=== PATIENT | female | born 1955 | race Caucasian/White ===

== ENCOUNTER → 2020-06-13 13:35 | Outpatient (BNVA) | payer MEDICARE, MEDICAID, SELFPAY | PROVIDERS: PCP Internal Medicine; Visit Provider Physician Assistant | DX: Z13.89 Encounter for screening for other disorder (principal) | CPT/HCPCS: Q3014 ==

== ENCOUNTER → 2020-07-14 07:47 | Outpatient (REF) | payer MEDICARE, MEDICAID, SELFPAY ==
--- NOTE | ~2020-07-14 | NM_ITS ---
EXAMINATION: RADIONUCLIDE SOLID FOOD GASTRIC EMPTYING 4-HOUR STUDY CLINICAL INFORMATION: Gastroparesis. COMPARISON: No previous gastric emptying study is available for comparison. TECHNIQUE: A standard meal consisting of 4 oz of Egg Beaters brand tagged with 880 microcuries Tc-99m Sulfur Colloid, 8 oz water and 2 slices of toast with jelly was administered orally to the patient. Images were obtained using a dual head gamma camera in the anterior and posterior projections over of the stomach immediately post ingestion and at hourly intervals up to 3 hours post ingestion. Images were not obtained at 4 hours due to the minimal retention at 3 hours. The anterior and posterior counts at each time interval were averaged using the geometric mean and expressed as percentage of the immediate post ingestion counts. FINDINGS: There is good visualization of activity in the stomach immediately post ingestion. As the study progresses, there is good clearance of activity from the stomach and visualization of progressively increasing small bowel activity. By the end of the study, there is almost no retention noted in the stomach. Retention in the stomach at each time interval was: 1 hour 71% (normal 37%-90%) 2 hours 34% (normal 30%-60%) 3 hours 5% 4 hours (Not Obtained) (normal 0%-10%) NM/NM gastric emptying study IMPRESSION: Normal solid food gastric emptying study.
== END ==
LOC: HO.NUCMED 07:47
PROVIDERS: Visit Provider Internal Medicine
DX: K31.84 Gastroparesis (principal)
CPT/HCPCS: 78264; A9541

== ENCOUNTER 2021-01-24 10:30 | Outpatient (REF) | payer MEDICARE, MEDICAID, SELFPAY ==
--- NOTE | ~2021-01-24 | XR_ITS ---
EXAMINATION: XR CHEST CLINICAL INFORMATION: Dyspnea COMPARISON: CXR from 06/19/2013 TECHNIQUE: 2 views of the chest were obtained. FINDINGS: Lungs are well expanded and without acute abnormality. No edema, consolidation or pleural effusion. No evidence of interstitial disease. Cardiac silhouette has normal size and contour. The visualized bones, and upper abdomen, are unremarkable. XR/XR chest 2V IMPRESSION: No acute pulmonary disease compared to 06/19/2013.
== END 2021-01-24 10:31 | disposition home or self-care (01) ==
LOC: HO.HMGCX 10:30
PROVIDERS: PCP Internal Medicine; Visit Provider Physician Assistant Medical
DX: R06.00 Dyspnea, unspecified (principal)
CPT/HCPCS: 71046

== ENCOUNTER → 2021-02-22 10:29 | Outpatient (BNVA) | payer MEDICARE, MEDICAID, SELFPAY | PROVIDERS: PCP Internal Medicine; Visit Provider Internal Medicine | DX: J44.9 Chronic obstructive pulmonary disease, unspecified (principal); R06.00 Dyspnea, unspecified; Z87.891 Personal history of nicotine dependence | CPT/HCPCS: 99202 ==

== ENCOUNTER 2021-03-15 09:51 | Outpatient (REF) | payer MEDICARE, MEDICAID, SELFPAY ==
--- NOTE | 2021-03-15 | PFT_ITS ---
FLOWS: FEV1 65% of predicted at 1.12 L. FVC 72% of predicted at 1.63 L. FEV1 to FVC ratio of 0.69. Positive bronchodilator response. LUNG VOLUMES: Total lung capacity 91% predicted at 3.68 L. Residual volume 121% of predicted at 2.17 L. Slow vital capacity 67% of predicted at 1.50 L. Expiratory reserve volume 28% of predicted at 0.13 L. Diffusion capacity is mildly decreased, diffusion capacity corrects to normal after correction for alveolar ventilation. IMPRESSION: Moderate obstructive ventilatory defect with positive bronchodilator response. Increased residual volume suggests air trapping. Decreased expiratory reserve volume suggests extrathoracic restriction likely secondary to abdominal obesity. Ezequiel Ro MD AP/MODL / [id number]
== END 2021-03-15 09:52 | disposition home or self-care (01) ==
LOC: HO.RESP 09:51
PROVIDERS: PCP Internal Medicine; Visit Provider Internal Medicine
DX: R06.00 Dyspnea, unspecified (principal)
CPT/HCPCS: 94060; 94727; 94729

== ENCOUNTER → 2021-03-21 09:58 | Outpatient (BNVA) | payer MEDICARE, MEDICAID, SELFPAY | PROVIDERS: PCP Internal Medicine; Visit Provider Internal Medicine | DX: J44.9 Chronic obstructive pulmonary disease, unspecified (principal); R06.00 Dyspnea, unspecified; Z87.891 Personal history of nicotine dependence | CPT/HCPCS: 99212 ==

== ENCOUNTER → 2021-05-16 09:28 | Outpatient (BNVA) | payer MEDICARE, MEDICAID, SELFPAY | PROVIDERS: PCP Internal Medicine; Visit Provider Internal Medicine | DX: J44.9 Chronic obstructive pulmonary disease, unspecified (principal); Z87.891 Personal history of nicotine dependence | CPT/HCPCS: 99212 ==

== ENCOUNTER 2021-06-04 12:06 | Outpatient (REF) | payer MEDICARE, MEDICAID, SELFPAY ==
--- NOTE | ~2021-06-04 | XR_ITS ---
EXAMINATION: XR SHOULDER, LEFT CLINICAL INFORMATION: Shoulder pain COMPARISON: None TECHNIQUE: Three views of the left shoulder. FINDINGS: Dysmorphic appearance of the lateral aspect of the clavicle, appearing chronic, could be related to old trauma. Moderate acromioclavicular arthritis. No visible acute fracture or dislocation. Mild glenohumeral joint arthritis. No abnormal soft tissue calcification. XR/XR shoulder LT min 2V IMPRESSION: Moderate acromioclavicular arthritis. Mild glenohumeral joint arthritis. No acute fracture or dislocation seen. Dysmorphic appearance of the lateral aspect of the clavicle, could be related to old trauma.
== END 2021-06-04 12:07 | disposition home or self-care (01) ==
LOC: HO.HMGCX 12:06
PROVIDERS: PCP Internal Medicine; Visit Provider Internal Medicine
DX: S43.402A Unspecified sprain of left shoulder joint, initial encounter (principal)
CPT/HCPCS: 73030

== ENCOUNTER 2021-06-25 09:12 | Emergency (ER) | payer MEDICARE, MEDICAID, SELFPAY ==
--- NOTE | ~2021-06-25 | CT_ITS ---
EXAMINATION: CT ABDOMEN AND PELVIS WITH CONTRAST CLINICAL INFORMATION: 66-year-old female with left lower quadrant abdominal pain COMPARISON: CT abdomen pelvis 07/14/2016 TECHNIQUE: Multidetector volumetric images were obtained from the superior aspect of the liver through the pubic symphysis following administration 85 mL of Omnipaque 350 intravenous contrast. Sagittal and coronal reformatted images were obtained on the technologist's workstation. Oral contrast: No This CT examination was performed using dose optimization techniques as appropriate, variously including the following: *Automated exposure control *Adjustment of mA and/or kV according to patient size (this includes techniques or standardized protocols for targeted exams where dose is matched to indication/reason for exam; i.e. extremities or head) *Use of iterative reconstruction technique DLP: 514 mGy-cm FINDINGS: Visualized lung bases demonstrate mild dependent atelectasis. The liver demonstrates normal size, contour and attenuation. Subcentimeter hypodensity within the posterior right hepatic lobe is stable and remains too small to accurately characterize. The gallbladder is normal in appearance. The pancreas, spleen and adrenal glands are unremarkable. Symmetrically enhancing kidneys. No hydronephrosis bilaterally. Small hiatal hernia. The stomach is decompressed. Normal caliber loops of small and large bowel. There is moderate colonic diverticulosis. Localized circumferential mucosal thickening involving the sigmoid colon. There is mild adjacent pericolonic stranding. There is no associated abscess. There is a mild stool burden throughout the entirety of the colon. Normal appendix. Normal caliber abdominal aorta which demonstrates mild atherosclerotic disease. There is no retroperitoneal lymphadenopathy. The bladder is normal in appearance. Unremarkable CT appearance of the uterus. No inguinal lymphadenopathy. Diffuse osteopenia. Scoliotic and degenerative changes of the spine. Right L5 pars defect. CT/CT abdomen pelvis w con IMPRESSION: CT findings most suggestive of active mild diverticulitis of the sigmoid colon. There is no complicating abscess. Fleischner guidelines were followed.
[2021-06-25 10:13] VITALS: BP 133/70; PULSE 104; RESP 18; TEMP 36.3; O2SAT 94; BMI 26.9
[2021-06-25 10:41] LABS: Basophils Absolute Auto 0.1 X10*3/uL (0.0-0.2); Basophils Percent Auto 0.7 % (0-2); Eosinophils Absolute Auto 0.4 X10*3/uL (0.0-0.4); Eosinophils Percent Auto 3.2 % (0-4); Imm Gran Abs Auto 0.06 X10*3/uL (0.00-0.03); Imm Gran Pct Auto 0.5 % (0.0-0.4); Lymphocytes Absolute Auto 3.2 X10*3/uL (1.2-4.9); Lymphocytes Percent Auto 26.6 % (20-40); MANUAL DIFF FLAG NO; Mean Corpuscular HGB Conc 31.4 g/dl (31.0-35.0); Mean Corpuscular Hemoglobin 27.6 pg (27.0-33.0); Mean Corpuscular Volume 87.9 fL (80.0-98.0); Mean Platelet Volume 9.4 fL (9.4-12.3); Monocytes Absolute Auto 0.8 X10*3/uL (0.1-1.2); Monocytes Percent Auto 6.2 % (2-11); Neutrophils Absolute Auto 7.6 x10*3/uL (2.0-8.3); Neutrophils Percent Auto 62.8 % (45-73); Platelet Count 700 X10*3/uL (160-400); Red Blood Count 3.98 X10*6/uL (4.20-5.50); White Blood Count 12.1 X10*3/uL (4.8-10.8)
[2021-06-25 10:42] LABS: Color Urine YELLOW; Glucose Urine UA NEG (NEG); Leukocyte Esterase Urine 2+ (NEG); Nitrite Urine NEG (NEG); Specific Gravity - Urine <= 1.005 (1.005-1.025); UACC Culture Trigger YES; Urine Blood NEG (NEG); Urine Ketones NEG (NEG); Urine Protein NEG (NEG-TRACE)
[2021-06-25 10:44] LABS: Appearance Urine HAZY
[2021-06-25 10:59] LABS: Squamous Epithelial Cell Urine 1+ /LPF
[2021-06-25 11:00] LABS: Alanine Aminotransferase 12 U/L (0-31); Albumin Level 4.5 g/dL (3.5-5.0); Alkaline Phosphatase 126 U/L (39-117); Anion Gap 18 (12-20); Aspartate Amino Transferase 12 U/L (5-31); Bacteria Urine TRACE /LPF; Bilirubin Direct 0.2 mg/dL (0.0-0.5); Bilirubin Total 0.3 mg/dL (0.0-1.0); Blood Urea Nitrogen 9 mg/dL (9-16); Calcium 10.8 mg/dL (8.4-10.2); Carbon Dioxide 25 mmol/L (22-29); Chloride 98 mmol/L (96-108); Creatinine Clr Calc Pharmacy 40.2; Estimated Glomerular Filt Rate > 60; Glucose Random 105 mg/dL (60-115); RBC Urine 0 /HPF (0); Sodium 137 mmol/L (135-145); Total Protein 7.8 g/dL (6.5-8.0)
--- NOTE | 2021-06-25 17:44 | ED.ABDPAIN ---
HPI - Abdominal Pain General Chief Complaint: Abdominal Pain Stated Complaint: abd pain Time Seen by Provider: 06/25/21 17:32 Source: patient and old records reviewed History of Present Illness HPI narrative: Patient with 2 weeks of abdominal pain and intermittent constipation. She states she takes laxatives which helped. Last bowel movement now 4 days ago but states she is barely in so does not think she has any stool. Nausea without vomiting Anorexia No fevers or chills She thinks she might have a history of diverticulitis but does not remember for sure There was hurting to urinate but currently is not She has seen gastroenterology in the past for reflux. Related Data Previous Rx's Medication Instructions Recorded bisacodyl 5 mg tablet,delayed 10 mg PO ONCE 1 Days #2 tab 06/13/20 release (Dulcolax (bisacodyl)) docusate sodium 100 mg capsule 200 mg PO BEDTIME #60 cap 06/13/20 (Colace) omeprazole 20 mg capsule,delayed 20 mg PO DAILY #90 cap 12/01/20 release fenofibrate 54 mg tablet 54 mg PO DAILY #90 tab 12/04/20 atorvastatin 40 mg tablet 40 mg PO DAILY #90 tab 12/21/20 fluticasone 250 mcg-salmeterol 50 1 inh INHALATION BID 30 Days #60 ea 03/21/21 mcg/dose blistr powdr for inhalation (Advair Diskus) fluticasone furoate 100 1 inh INHALATION DAILY 30 Days #60 03/22/21 mcg-vilanterol 25 mcg/dose ea inhalation powder (Breo Ellipta) albuterol sulfate 90 mcg/actuation 2 puff PO QID PRN 30 Days #6.7 g 04/03/21 aerosol inhaler tiotropium bromide 2.5 2 puff INHALATION DAILY 30 Days #4 05/16/21 mcg/actuation mist for inhalation g (Spiriva Respimat) cyclobenzaprine 10 mg tablet 10 mg PO BEDTIME #14 tab 06/04/21 oxycodone-acetaminophen 5 mg-325 1 tab PO TID PRN #84 tab 06/11/21 mg tablet amoxicillin 875 mg-potassium 1 tab PO BID #20 tab 06/25/21 clavulanate 125 mg tablet Allergies Allergy/AdvReac Type Severity Reaction Status Date / Time aspirin AdvReac Unknown stomach Verified 06/04/21 11:35 upset Review of Systems Comments: No fevers or chills Comments: No chest pain Comments: No cough or dyspnea Comments: Abdominal pain as documented Comments: Dysuria which has resolved Comments: No leg swelling Comments: No rash Comments: No focal weakness PMFSH Past Medical History Medical History Chronic constipation COPD (chronic obstructive pulmonary disease) COVID-19 Dyslipidemia GERD (gastroesophageal reflux disease) History of smoking at least 1 pack per day for at least 30 years Lumbar spondylosis Mild asthma Nondiabetic gastroparesis Surgical History Hyperhidrosis Family History Family History Father Medical history unknown Mother Hypertension Diabetes High cholesterol Son Bipolar 1 disorder Anxiety Social History Social History Household Members: None Alcohol intake: current Alcohol intake frequency: holidays/special occasions only Patient Tobacco Use Status: Former Tobacco user Advance Directives: No Advance Directives Information Provided: No Current occupational status: disabled Physical Exam ED Vital Signs: Vital Signs - 24 hr 06/25/21 10:13 06/25/21 19:55 Temperature 97.4 F Pulse Rate 104 H 95 Respiratory Rate 18 18 Blood Pressure 133/70 117/52 L Pulse Oximetry 94 98 BMI result Body Mass Index 26.9 Const Other: Awake and alert no acute distress. Ambulates without difficulty HENMT Other: Mucosa dry Resp Other: Clear and equal bilaterally without respiratory distress Cardio Other: Regular rate rhythm without murmurs rubs or gallops GI Other: Diffusely mildly tender but moderately tender in the left lower quadrant with guarding and no rebound. No right-sided tenderness. No organomegaly. No pulsatile masses. No hernias noted Skin Other: Warm and dry without rash. Skin turgor poor Neuro Other: No focal deficit Course Course Course Narrative: Abdominal pain Diverticulitis Constipation Colitis Urinary tract infection Dehydration IV normal saline Toradol Zofran 17:48. Blood work shows white count of 12.1. BUN and creatinine are normal. 20:27. CT scan shows mild diverticulitis without perforation. Patient feels much better after Toradol and denies any pain. Will dose with Augmentin here as this should help with her constipation as well. Stable for discharge home MDM - Abdominal Pain Lab Data Result diagrams: 06/25/21 10:32 06/25/21 10:32 Labs: Lab Results 06/25/21 06/25/21 06/25/21 Range/Units 10:32 10:32 10:32 WBC 12.1 H (4.8-10.8) X10*3/uL RBC 3.98 L (4.20-5.50) X10*6/uL Hgb 11.0 L (12.0-16.0) g/dl Hct 35.0 L (37.0-47.0) % MCV 87.9 (80.0-98.0) fL MCH 27.6 (27.0-33.0) pg MCHC 31.4 (31.0-35.0) g/dl RDW 14.0 (11.0-16.0) % Plt Count 700 H (160-400) X10*3/uL MPV 9.4 (9.4-12.3) fL Immature Gran % (Auto) 0.5 H (0.0-0.4) % Neut % (Auto) 62.8 (45-73) % Lymph % (Auto) 26.6 (20-40) % [place] % (Auto) 6.2 (2-11) % Eos % (Auto) 3.2 (0-4) % Baso % (Auto) 0.7 (0-2) % Lymph # (Auto) 3.2 (1.2-4.9) X10*3/uL [place] # (Auto) 0.8 (0.1-1.2) X10*3/uL Eos # (Auto) 0.4 (0.0-0.4) X10*3/uL Baso # (Auto) 0.1 (0.0-0.2) X10*3/uL Abs Immat Gran (auto) 0.06 H (0.00-0.03) X10*3/uL Absolute Neuts (auto) 7.6 (2.0-8.3) x10*3/uL Absolute Nucleated RBC 0.000 (0.0-0.012) X10*3/uL Nucleated RBC % (auto) 0.0 (0.0-0.2) /100WBC Sodium 137 (135-145) mmol/L Potassium 4.0 (3.3-5.1) mmol/L Chloride 98 (96-108) mmol/L Carbon Dioxide 25 (22-29) mmol/L Anion Gap 18 (12-20) BUN 9 (9-16) mg/dL Creatinine 0.92 (0.5-1.4) mg/dL Estim Creat Clear Calc 40.2 Estimated GFR > 60 Random Glucose 105 (60-115) mg/dL Calcium 10.8 H (8.4-10.2) mg/dL Total Bilirubin 0.3 (0.0-1.0) mg/dL Direct Bilirubin 0.2 (0.0-0.5) mg/dL AST 12 (5-31) U/L ALT 12 (0-31) U/L Alkaline Phosphatase 126 H (39-117) U/L Total Protein 7.8 (6.5-8.0) g/dL Albumin 4.5 (3.5-5.0) g/dL Urine Color YELLOW Urine Appearance HAZY Urine pH 6.0 (5.0-8.0) Ur Specific [place] <= 1.005 (1.005-1.025) Urine Protein NEG (NEG-TRACE) MG/DL Urine Glucose (UA) NEG (NEG) MG/DL Urine Ketones NEG (NEG) MG/DL Urine Blood NEG (NEG) Urine Nitrite NEG (NEG) Ur Leukocyte Esterase 2+ H (NEG) Urine RBC 0 (0) /HPF Urine WBC 1-4 (0-4) /HPF Ur Squamous Epith Cells 1+ /LPF Urine Bacteria TRACE /LPF Discharge Plan Discharge Clinical Impression: Diverticulitis Patient Disposition: Home, Self-Care Instructions: Diverticulitis (ED) Prescriptions: New amoxicillin-pot clavulanate 875-125 mg tablet 1 tab PO BID Qty: 20 0RF No Action omeprazole 20 mg capsule,delayed release(DR/EC) 20 mg PO DAILY Qty: 90 1RF fenofibrate 54 mg tablet 54 mg PO DAILY Qty: 90 2RF atorvastatin 40 mg tablet 40 mg PO DAILY Qty: 90 2RF Breo Ellipta 100-25 mcg/dose blister with device 1 inh inhalation DAILY 30 Days Qty: 60 3RF albuterol sulfate 90 mcg/actuation HFA aerosol inhaler 2 puff PO QID PRN (Reason: bronchospasm) 30 Days Qty: 6.7 6RF oxycodone-acetaminophen 5-325 mg tablet 1 tab PO TID PRN (Reason: pain) Qty: 84 0RF cyclobenzaprine 10 mg tablet 10 mg PO BEDTIME Qty: 14 0RF bisacodyl [Dulcolax (bisacodyl)] 5 mg tablet,delayed release (DR/EC) 10 mg PO ONCE 1 Days Qty: 2 0RF Rx Instructions: Take 2 tablets by mouth at 12:00pm the day before your procedure. docusate sodium [Colace] 100 mg capsule 200 mg PO BEDTIME Qty: 60 5RF Spiriva Respimat 2.5 mcg/actuation mist 2 puff inhalation DAILY 30 Days Qty: 4 5RF fluticasone propion-salmeterol [Advair Diskus] 250-50 mcg/dose blister with device 1 inh inhalation BID 30 Days Qty: 60 3RF
[2021-06-25] MEDS: Ketorolac Tromethamine 15 MG/ML VIAL 30 MG IVPUSH (18:50)
[2021-06-25] MEDS: ondansetron HCL 4 MG/2 ML VIAL IVPUSH (18:50)
[2021-06-25] MEDS: 0.9 % Sodium Chloride 1,000 ML 999 ML IV (18:51)
[2021-06-25] MEDS: iohexoL 350 MG/ML 100 ML INFUS..BTL IV (19:33)
[2021-06-25 19:55] VITALS: BP 117/52; PULSE 95; RESP 18; O2SAT 98
[2021-06-25] MEDS: Amoxicillin/Potassium Clav 875 MG TABLET PO (20:43)
== END 2021-06-25 20:55 | disposition home or self-care (01) ==
PROVIDERS: Emergency Provider Emergency Medicine; PCP Internal Medicine
DX: K57.32 Diverticulitis of large intestine without perforation or abscess without bleeding (principal)
CPT/HCPCS: 36415; 74177; 80048; 80076; 81001; 85025; 87086; 96361; 96374; 96375; 99284; J1885; J2405; Q9967

== ENCOUNTER → 2021-07-09 14:25 | Outpatient (BNVA) | payer MEDICARE, MEDICAID, SELFPAY | PROVIDERS: PCP Internal Medicine; Visit Provider Surgery | DX: K57.32 Diverticulitis of large intestine without perforation or abscess without bleeding (principal) | CPT/HCPCS: 99202 ==

== ENCOUNTER → 2021-07-16 10:11 | Outpatient (BNVA) | payer MEDICARE, MEDICAID, SELFPAY | PROVIDERS: PCP Internal Medicine; Visit Provider Internal Medicine | DX: J44.9 Chronic obstructive pulmonary disease, unspecified (principal); Z87.891 Personal history of nicotine dependence | CPT/HCPCS: 99212 ==

== ENCOUNTER 2021-09-17 05:56 | Outpatient (REF) | payer MEDICARE, OTHER, SELFPAY ==
[2021-09-17 08:05] LABS: Alanine Aminotransferase 11 U/L (0-31); Albumin Level 4.4 g/dL (3.5-5.0); Alkaline Phosphatase 114 U/L (39-117); Anion Gap 14 (12-20); Aspartate Amino Transferase 11 U/L (5-31); Bilirubin Total 0.4 mg/dL (0.0-1.0); Blood Urea Nitrogen 10 mg/dL (9-16); Calcium 9.6 mg/dL (8.4-10.2); Carbon Dioxide 27 mmol/L (22-29); Chloride 103 mmol/L (96-108); Cholesterol 200 mg/dL; Estimated Glomerular Filt Rate > 60; Glucose Fasting 98 mg/dL (60-99); HDL Cholesterol 51 mg/dL; LDL Cholesterol Calculated 103 mg/dl; Sodium 139 mmol/L (135-145); Total Protein 7.2 g/dL (6.5-8.0); Triglycerides 232 mg/dL
[2021-09-17 08:27] LABS: Vitamin D 25-OH Total 37.5 ng/mL (>30)
[2021-09-18 14:16] LABS: Calcium (PTHI) 9.9 mg/dL (8.6-10.4); PTHI 31 pg/mL (16-77)
== END 2021-09-17 05:57 | disposition home or self-care (01) ==
LOC: HO.LAB 05:56
PROVIDERS: PCP Internal Medicine; Visit Provider Internal Medicine
DX: E83.52 Hypercalcemia (principal); E78.5 Hyperlipidemia, unspecified
CPT/HCPCS: 36415; 80053; 80061; 82306; 82330; 83970

== ENCOUNTER → 2021-11-19 10:17 | Outpatient (BNVA) | payer MEDICARE, OTHER, SELFPAY | PROVIDERS: PCP Internal Medicine; Visit Provider Internal Medicine | DX: J44.9 Chronic obstructive pulmonary disease, unspecified (principal); Z87.891 Personal history of nicotine dependence; Z79.899 Other long term (current) drug therapy | CPT/HCPCS: 99212 ==

== ENCOUNTER → 2021-12-17 12:39 | Outpatient (BNVA) | payer MEDICARE, MEDICAID, SELFPAY | PROVIDERS: PCP Internal Medicine; Visit Provider Physician Assistant | DX: R19.5 Other fecal abnormalities (principal); K21.9 Gastro-esophageal reflux disease without esophagitis; K59.09 Other constipation; R79.89 Other specified abnormal findings of blood chemistry; Z79.899 Other long term (current) drug therapy; Z79.891 Long term (current) use of opiate analgesic | CPT/HCPCS: 99202; 99212 ==

== ENCOUNTER 2022-01-25 06:25 | Outpatient (REF) | payer MEDICARE, MEDICAID, SELFPAY ==
[2022-01-25 08:15] LABS: Alanine Aminotransferase 12 U/L (0-31); Albumin Level 4.8 g/dL (3.5-5.0); Alkaline Phosphatase 86 U/L (39-117); Anion Gap 20 (12-20); Aspartate Amino Transferase 14 U/L (5-31); Bilirubin Total 0.3 mg/dL (0.0-1.0); Blood Urea Nitrogen 17 mg/dL (9-16); Calcium 10.3 mg/dL (8.4-10.2); Carbon Dioxide 24 mmol/L (22-29); Chloride 100 mmol/L (96-108); Cholesterol 194 mg/dL; Estimated Glomerular Filt Rate 47; Glucose Fasting 100 mg/dL (60-99); HDL Cholesterol 47 mg/dL; LDL Cholesterol Calculated 92 mg/dl; Potassium 5.6 mmol/L (3.3-5.1); Sodium 138 mmol/L (135-145); Total Protein 7.7 g/dL (6.5-8.0); Triglycerides 278 mg/dL
== END 2022-01-25 06:26 | disposition home or self-care (01) ==
LOC: HO.LAB 06:25
PROVIDERS: PCP Internal Medicine; Visit Provider Internal Medicine
DX: E78.5 Hyperlipidemia, unspecified (principal)
CPT/HCPCS: 36415; 80053; 80061

== ENCOUNTER 2022-02-07 11:03 | Outpatient (REF) | payer MEDICARE, MEDICAID, SELFPAY ==
--- NOTE | 2022-02-07 11:07 | ECG_ITS ---
Test Reason : hyperkalemia Blood Pressure : / mmHG Vent. Rate : 112 BPM Atrial Rate : 112 BPM P-R Int : 134 ms QRS Dur : 082 ms QT Int : 316 ms P-R-T Axes : 077 042 045 degrees QTc Int : 431 ms Sinus tachycardia with occasional Premature ventricular complexes Low voltage QRS Borderline ECG No previous ECGs available Referred By: Kaela Levine Electronically Signed By:CRISTINA IBARRA MD
[2022-02-07 12:05] LABS: Alanine Aminotransferase 21 U/L (0-31); Alkaline Phosphatase 101 U/L (39-117); Anion Gap 18 (12-20); Aspartate Amino Transferase 14 U/L (5-31); Bilirubin Total 0.2 mg/dL (0.0-1.0); Blood Urea Nitrogen 12 mg/dL (9-16); Calcium 10.5 mg/dL (8.4-10.2); Carbon Dioxide 26 mmol/L (22-29); Chloride 99 mmol/L (96-108); Estimated Glomerular Filt Rate > 60; Glucose Random 109 mg/dL (60-115); Potassium 5.1 mmol/L (3.3-5.1); Sodium 138 mmol/L (135-145); Total Protein 8.1 g/dL (6.5-8.0)
== END 2022-02-07 11:04 | disposition home or self-care (01) ==
LOC: HO.LAB 11:03
PROVIDERS: PCP Internal Medicine; Visit Provider Internal Medicine
DX: E87.5 Hyperkalemia (principal)
CPT/HCPCS: 36415; 80053; 93005

== ENCOUNTER → 2022-02-15 12:22 | Outpatient (BNVA) | payer MEDICARE, MEDICAID, SELFPAY | PROVIDERS: PCP Internal Medicine; Visit Provider Internal Medicine Endocrinology, Diabetes & Metabolism | DX: E83.52 Hypercalcemia (principal) | CPT/HCPCS: 99202 ==

== ENCOUNTER 2022-02-27 09:18 | Outpatient (REF) | payer MEDICARE, MEDICAID, SELFPAY ==
--- NOTE | ~2022-02-27 | MM_ITS ---
EXAMINATION: BONE DENSITOMETRY CLINICAL INDICATION: Menopause. COMPARISON: Baseline BD dated 11/13/2009. TECHNIQUE: Using a [employer] DXA System (software version: 13.1) manufactured by [employer], dual-energy x-ray absorptiometry was performed of the lumbar spine and left hip. The images are of good technical quality. Summary results are attached. FINDINGS: AP SPINE L1-L4 (excluding L3): The data of L1-L4 has been changed to exclude the L3 vertebral body, because degenerative changes at this level may cause overestimation of lumbar spine density. Current: BMD 1.185 g/cm2, Z-score 1.7, T-score 0.1, normal, 7.6% increase from baseline (<5% change is not significant). Baseline: BMD 1.101 g/cm2. LEFT FEMUR, NECK: Current: BMD 0.792 g/cm2, Z-score -0.2, T-score -1.8, osteopenia. Baseline: BMD 0.813 g/cm2. LEFT FEMUR, TOTAL: Current: BMD 0.980 g/cm2, Z-score 1.1, T-score -0.2, normal, 4.3% increase from baseline (<5% change is not significant). Baseline: BMD 0.940 g/cm2. IDENTIFIED RISK FACTORS: Early menopause, height loss, secondary osteoporosis. HISTORY OF FRACTURE: None listed. MEDICATIONS: Multivitamin. MM/XR DEXA axial skeleton IMPRESSION: 1. DIAGNOSIS: Osteopenia based on the lowest T-score value of -1.8 in the femoral neck applying World Health Organization criteria. 2. 10-YEAR FRACTURE RISK PREDICTION, FRAX: Major osteoporotic fracture (clinical spine, forearm, hip or shoulder) 10.1%. Hip fracture 1.5%. 3. Treatment Recommendations: NOF guidelines recommend consideration for treatment in postmenopausal women and men age 50 and older presenting with the following: -A hip or vertebral (clinical or morphometric) fracture. -T-score less than or equal to -2.5 at the femoral neck or spine after appropriate evaluation to exclude secondary causes. -Low bone mass at the hip or spine and a 10-year fracture probability by FRAX of greater than or equal to 3% for hip fracture or greater than or equal to 20% for major osteoporotic fracture based on the [place] adapted WHO algorithm. 4. Other Recommendations: All treatment decisions require clinical judgment and consideration of individual patient factors, including patient preferences, comorbidities, previous drug use, risk factors not captured in the FRAX model (e.g. frailty, falls, vitamin D deficiency, increased bone turnover, interval significant decline in bone density) and possible under or overestimation of fracture risk by FRAX. Additional medical evaluation for secondary cause of low bone mineral density may be appropriate. FUTURE SCAN RECOMMENDATION: People with diagnosed cases of osteoporosis or at high risk for fracture should have regular bone mineral density tests. For patients eligible for Medicare, routine testing is allowed once every 2 years. The testing frequency can be increased to one year for patients who have rapidly progressing disease, those who are receiving or discontinuing medical therapy to restore bone mass, or have additional risk factors.
== END 2022-02-27 09:19 | disposition home or self-care (01) ==
LOC: HO.MAMMO 09:18
PROVIDERS: PCP Internal Medicine; Visit Provider Internal Medicine
DX: Z13.820 Encounter for screening for osteoporosis (principal); Z78.0 Asymptomatic menopausal state
CPT/HCPCS: 77080

== ENCOUNTER 2022-04-10 09:35 | Outpatient (REF) | payer MEDICARE, MEDICAID, SELFPAY ==
--- NOTE | ~2022-04-10 | MM_ITS ---
EXAMINATION: MM SCREENING DIGITAL BREAST TOMOSYNTHESIS, BILATERAL CLINICAL INFORMATION: Screening. Asymptomatic. The lifetime risk of breast cancer based on the Tyrer-Cuzick Model is 4%. COMPARISON: Mammography: 08/24/2018, 08/24/2017, 07/17/2016 TECHNIQUE: Digital breast tomosynthesis is performed in both the craniocaudal and mediolateral oblique views along with computer-aided detection (CAD). Synthesized 2D images are generated from the tomosynthesis. FINDINGS: There are scattered areas of fibroglandular density (ACR BI-RADS breast composition Category b). There are no significant masses, abnormal calcifications, or other abnormalities. Parenchymal pattern is similar to prior studies. There is no developing density or architectural abnormality. The axilla and skin contours are unremarkable. No significant changes. MM/MM tomosynthesis screening BI IMPRESSION: No mammographic evidence of malignancy. ASSESSMENT: BI-RADS 1: Negative RECOMMENDATION: Routine annual mammography screening. This patient's information was entered into a reminder system with a target due date for their next mammogram.
== END 2022-04-10 09:36 | disposition home or self-care (01) ==
LOC: HO.MAMMO 09:35
PROVIDERS: PCP Internal Medicine; Visit Provider Internal Medicine
DX: Z12.31 Encounter for screening mammogram for malignant neoplasm of breast (principal)
CPT/HCPCS: 77063; 77067

== ENCOUNTER → 2022-05-20 09:50 | Outpatient (BNVA) | payer MEDICARE, OTHER, SELFPAY | PROVIDERS: PCP Internal Medicine; Visit Provider Internal Medicine | DX: J44.9 Chronic obstructive pulmonary disease, unspecified (principal); Z87.891 Personal history of nicotine dependence | CPT/HCPCS: 99212 ==

== ENCOUNTER 2022-06-03 07:31 | Day surgery (SDC) | payer MEDICARE, OTHER, SELFPAY ==
[2022-05-30 12:04] VITALS: BMI 31.8
--- NOTE | 2022-06-03 07:12 | P.CONAN_ITS ---
HPI - Anesthesia Eval Consult details Narrative: EGD, Colonoscopy PMFSH Active Problems Active Problems: All Active Problems (Updated 02/21/22 @ 13:20 by Reema Le MD) Dyspnea (Acute) Mixed hyperlipidemia (Acute) Positive colorectal cancer screening using Cologuard test (Acute) Elevated platelet count (Acute) Hyperkalemia (Acute) Physical exam (Acute) Postmenopausal (Acute) Elevated total protein (Acute) Hypercalcemia (Acute) Hospital discharge follow-up (Acute) Diverticulitis (Acute) Hypercalcemia (Acute) History of smoking at least 1 pack per day for at least 30 years (Acute) COPD (chronic obstructive pulmonary disease) (Acute) Chronic constipation (Acute) Nondiabetic gastroparesis (Acute) GERD (gastroesophageal reflux disease) (Acute) COVID-19 (Acute) Dyslipidemia (Acute) Mild asthma (Acute) Lumbar spondylosis (Acute) Past Medical History Medical History Chronic constipation COPD (chronic obstructive pulmonary disease) COVID-19 Diverticulitis Dyslipidemia GERD (gastroesophageal reflux disease) History of smoking at least 1 pack per day for at least 30 years Hospital discharge follow-up Hypercalcemia Lumbar spondylosis Mild asthma Nondiabetic gastroparesis Family History Family History Father Medical history unknown Mother Hypertension Diabetes High cholesterol Son Bipolar 1 disorder Anxiety Mental health disorder Family history of problems with anesthesia: No Surgical History Surgical History (Updated 05/30/22 @ 11:51 by Kennedi Elise RN) Hx of colonoscopy Hyperhidrosis History of Problems with Anesthesia: No Social History Social History Household Members: None Housing: Apartment Are you a primary day care supervisor to a significant other at home: No Do you presently have visiting nurse or other home services: No Alcohol intake: current Alcohol intake frequency: a few times a month Alcohol type: beer Patient Tobacco Use Status: Current someday Tobacco user Tobacco use type: Cigarette Cigarettes Per Day: 1 Years Smoked: 50 e-Cigarette/Vaping Use: Never Used Second Hand Smoke Exposure: No Use of substances other than those prescribed or required for medical reasons: No Have you been hit, kicked, punched, or otherwise hurt by someone within the past year? If so, by whom?: No Do you have thoughts of harming others: None Do you have a plan to hurt others: No Plan Do you have the means to hurt others: No Recently lost weight without trying: No Eating poorly because of decreased appetite: No Patient : No service: No Current occupational status: disabled Cognitive needs: No Hearing needs: No Vision needs: Yes Meds Allergies Allergy/AdvReac Type Severity Reaction Status Date / Time aspirin AdvReac Unknown stomach Verified 05/28/22 08:58 upset Home Medications Medication Instructions Recorded Confirmed Last Taken Type acetaminophen 650 mg 650 mg PO Q8H PRN Pain 02/21/22 05/30/22 Unknown History tablet,extended release (Tylenol Arthritis Pain) ibuprofen 400 mg tablet 400 mg PO Q8H PRN Pain 02/21/22 05/30/22 Unknown History Exam Exam Date and Time: June 03, 2022 0712 Height,Weight and Vital Signs: Height 4 ft 8 in Weight 64.41 kg Airway Mallampati Class: II TM Dist: >3cm Neck ROM: Limited Heart: rrr Lungs: cta Assessment and Plan Final Anesthetic Review Family History of Problems with Anesthesia: No History of Problems with Anesthesia: No NPO: Yes ASA Class: III Final Preanesthetic Review: No Changes in Pt Med Stat, Meds/Allgs Chart Reviewed, Consent Obtained/Reviewed and Anes Risks/Benef Reviewed Patient Risk: High Procedure Risk: Intermediate Anesthetic Plan Anesthetic Plan: MAC: Disposition: Standard PACU
--- NOTE | 2022-06-03 07:27 | MHC.SHP ---
Pre-Procedural Eval Section A Date of Service: 06/03/22 The patient is an INPATIENT: No The History & Physical has been completed within 30 days and I have reviewed it.: No Section B Chief Complaint: reflux & screening for malignant neoplasm of colon Details of Present Illness: colon cancer screening, positive Cologuard test, chronic constipation, GERD Relevant Family History (Specify if Yes): No Relevant Social History: Tobacco Use (Former smoker) Present Medications: see Short Stay Collaborative assessment Medical History: Significant History (Chronic constipation COPD (chronic obstructive pulmonary disease) COVID-19 Diverticulitis Dyslipidemia GERD (gastroesophageal reflux disease) History of smoking at least 1 pack per day for at least 30 years Hospital discharge follow-up Hypercalcemia Lumbar spondylosis Mild asthma Nondiabetic gastrop) History of Previous Operations: Relevant previous surgery/procedure and date(s) (History of colonoscopy) Allergies: Allergies Allergy/AdvReac Type Severity Reaction Status Date / Time aspirin AdvReac Unknown stomach Verified 05/28/22 08:58 upset Review of Systems Sugical H&P ROS: Negative: Constitution, Cardiovascular, Respiratory and Gastrointestinal Exam Surgical H&P Exam: Normal: Heart, Normal: Lungs, Normal: Extremities and Normal: Abdomen Plan Diagnosis/Plan: Unchanged I have reviewed the history and physical and performed a pertinent physical examination on my patient. No changes have occurred unless specified. Time Spent With Patient Time: Total time managing care of this patient today ____ minutes.
[2022-06-03 07:53] VITALS: BP 129/69; PULSE 109; RESP 18; TEMP 37.1; O2SAT 96
[2022-06-03 07:57] VITALS: BMI 30.7
[2022-06-03] MEDS: Lactated Ringers 1,000 ML 50 ML IVCONT (08:11)
--- NOTE | 2022-06-03 08:50 | PM.OP ---
Brief Operative Note Date of Service: 06/03/22 Pre-op diagnosis: Colon cancer screening, positive Cologuard test, GERD Post-op diagnosis: other (GERD, gastritis, colon polyps, diverticulosis) Procedure: FLEXIBLE TRANSORAL UPPER GASTROINTESTINAL ENDOSCOPY WITH BIOPSIES AND COLONOSCOPY TILL CECUM WITH SNARE POLYPECTOMY AND HEMOCLIP PLACEMENT Surgeon: Amador Barroso MD Anesthesia: MAC Was an [employer]able [employer] Consultant used for this Procedure?: Yes Renewable [employer] Consultant: Yudi Payton Estimated blood loss (mL): 0 Pathology: other (A. small bowel bxs, R/O celiac B. gastric antrum bxs, R/O H. pylori C. gastric body bxs D. transverse colon polyp E. rectal polyp) Condition: stable Disposition: PACU
--- NOTE | 2022-06-03 08:50 | W.PM.OPN ---
Operative Note Operative Note Date of Service: 06/03/22 Narrative: FLEXIBLE TRANSORAL UPPER GASTROINTESTINAL ENDOSCOPY WITH BIOPSIES AND COLONOSCOPY TILL CECUM WITH UPPER ENDOSCOPY Consent: Indications for the procedure and potential complications of bleeding, perforation, reaction to medications and missed diagnosis were discussed with the patient and informed consent was obtained. Instrument: Olympus GIF H 190 mid size upper endoscope Monitoring: Vital signs and clinical assessment, continuous EKG monitoring, Pulse oximetry, Carbon Dioxide monitoring and blood pressure monitoring were done throughout the procedure. Procedure: The patient was placed in the left lateral decubitis position and pre-procedure medications were administered and a bite block was placed. The endoscope was inserted into the mouth and advanced under direct vision to the third part of duodenum. A careful inspection was made as the upper endoscope was withdrawn including a retroflexed examination of the proximal stomach; Findings and interventions are described below. Findings: Larynx: Normal Esophagus: GE junction at []. No esophagitis or Guzman's. Stomach: Mild gastric erythema. Biopsies were obtained. Grade 2 flap valve on retroflexed examination of the cardia. Duodenum: Normal bulb and descending duodenum Intervention: Biopsies as noted above COLONOSCOPY PROCEDURE NOTE Consent: Indications for the procedure and potential complications of bleeding, perforation, reaction to medications and missed diagnosis were discussed with the patient and informed consent was obtained. Instrument: Olympus PCF H 190 L variable stiffness pediatric colonoscope Monitoring: Vital signs and clinical assessment, intermittent blood pressure monitoring, continuous EKG monitoring, Pulse oximetry and Carbon Dioxide monitoring were done throughout the procedure. Colon withdrawl time was [] minutes. Procedure: The patient was placed in the left lateral decubitis position and pre-procedure medications were administered. After a digital rectal examination of the ano-rectum, the video colonoscope was inserted into the rectum and advanced through the colon to the cecum. The colonoscope was slowly withdrawn in a retrograde panoramic fashion and the colon mucosa was carefully examined including a retroflexed view of the rectum. Findings and interventions are described below. Procedure Difficulty: : [Without difficulty] [LLQ pressure applied to intubate the transverse colon/cecum] Findings: Terminal Ileum: Not evaluated Cecum: Normal Ascending Colon: Normal Transverse Colon: Normal Descending Colon: Normal Sigmoid Colon: Moderate diverticulosis Rectum: Normal Ano-rectum: Moderate internal hemorrhoids Colon preparation: [Excellent] [Good] [Fair] [poor] Impression and Post Procedure Diagnosis: Endoscopy Findings: LARYNX: [] ESOPHAGUS: [] STOMACH: [] DUODENUM: [] Colonoscopy Findings: [] polyps removed Moderate diverticulosis seen in the []colon Moderate hemorrhoids on retroflexed exam. Plan: Await pathology results Patient has an appointment on 06/17/22 in the [facility] with BEN Koenig. Repeat Colonoscopy interval based on path results - in 3-5 years if polyps are adenomatous and 10 years if polyps are hyperplastic. Above findings were reviewed with the patient and [colon polyps] and [diverticulosis] handouts were given in the discharge area
[2022-06-03 09:36] VITALS: BP 155/71; PULSE 94; RESP 26; TEMP 36.3; O2SAT 97
--- NOTE | 2022-06-03 09:36 | W.PM.OPN ---
Operative Note Operative Note Date of Service: 06/03/22 Narrative: Pre-op diagnosis: Colon cancer screening, positive Cologuard test, GERD Post-op diagnosis:?other (GERD, gastritis, colon polyps, diverticulosis) Surgeon: Amador Barroso MD Anesthesia:?MAC FLEXIBLE TRANSORAL UPPER GASTROINTESTINAL ENDOSCOPY WITH BIOPSIES AND COLONOSCOPY TILL CECUM WITH SNARE POLYPECTOMY AND HEMOCLIP PLACEMENT UPPER ENDOSCOPY Consent: Indications for the procedure and potential complications of bleeding, perforation, reaction to medications and missed diagnosis were discussed with the patient and informed consent was obtained. Instrument: Olympus GIF H 190 mid size upper endoscope Monitoring: Vital signs and clinical assessment, continuous EKG monitoring, Pulse oximetry, Carbon Dioxide monitoring and blood pressure monitoring were done throughout the procedure. Procedure: The patient was placed in the left lateral decubitis position and pre-procedure medications were administered and a bite block was placed. The endoscope was inserted into the mouth and advanced under direct vision to the third part of duodenum. A careful inspection was made as the upper endoscope was withdrawn including a retroflexed examination of the proximal stomach; Findings and interventions are described below. Findings: Larynx: Normal Esophagus: GE junction at 35 CMS. No esophagitis or Guzman's. Stomach: Mild diffuse gastric erythema. Biopsies were obtained. Grade 2 flap valve on retroflexed examination of the cardia. Duodenum: Normal bulb and descending duodenum. Biopsies were obtained from 3rd part of the duodenum to check for celiac sprue Intervention: Biopsies as noted above COLONOSCOPY PROCEDURE NOTE Consent: Indications for the procedure and potential complications of bleeding, perforation, reaction to medications and missed diagnosis were discussed with the patient and informed consent was obtained. Instrument: Olympus PCF H 190 L variable stiffness pediatric colonoscope Monitoring: Vital signs and clinical assessment, intermittent blood pressure monitoring, continuous EKG monitoring, Pulse oximetry and Carbon Dioxide monitoring were done throughout the procedure. Colon withdrawl time was 17 minutes. Procedure: The patient was placed in the left lateral decubitis position and pre-procedure medications were administered. After a digital rectal examination of the ano-rectum, the video colonoscope was inserted into the rectum and advanced through the colon to the cecum. The colonoscope was slowly withdrawn in a retrograde panoramic fashion and the colon mucosa was carefully examined including a retroflexed view of the rectum. Findings and interventions are described below. Procedure Difficulty: : Without difficulty Findings: Terminal Ileum: Not evaluated Cecum: Normal Ascending Colon: Normal Transverse Colon: A 12 - 15 mm sessile polyp, removed with a hot snare Descending Colon: Moderate diverticulosis Sigmoid Colon: Severe diverticulosis with luminal narrowing Rectum: A 2 to 2.5 cms sessile polyp at 5 cms removed with a hot snare. Bleeding at polypectomy site controlled with placement of 2 hemoclips Ano-rectum: Normal Colon preparation: Excellent Impression and Post Procedure Diagnosis: Endoscopy Findings: STOMACH: Gastritis DUODENUM: Normal - biopsied to check for celiac sprue Colonoscopy Findings: One medium sized and one large polyps removed Moderate to severe diverticulosis seen in the left colon Plan: Await pathology results Patient has an appointment on 06/17/22 in the GI Clinic with BEN Koenig. Repeat Flexible Sigmoidoscopy (with colon prep) in 4 - 6 months to check polypectomy site in the rectum (if rectal polyp is adenomatous). Repeat colonoscopy in 3 years. Above findings were reviewed with the patient and GERD, colon polyps and diverticulosis handouts were given in the discharge area
[2022-06-03 09:51] VITALS: BP 142/45; PULSE 87; RESP 18; TEMP 36.1; O2SAT 97
--- NOTE | 2022-06-03 10:36 | HO.ANESPROP2 ---
HPI - Anesthesia Eval Consult details Narrative: egd, colonoscopy PMFSH Active Problems Active Problems: All Active Problems (Updated 02/21/22 @ 13:20 by Reema Le MD) Dyspnea (Acute) Mixed hyperlipidemia (Acute) Positive colorectal cancer screening using Cologuard test (Acute) Elevated platelet count (Acute) Hyperkalemia (Acute) Physical exam (Acute) Postmenopausal (Acute) Elevated total protein (Acute) Hypercalcemia (Acute) Hospital discharge follow-up (Acute) Diverticulitis (Acute) Hypercalcemia (Acute) History of smoking at least 1 pack per day for at least 30 years (Acute) COPD (chronic obstructive pulmonary disease) (Acute) Chronic constipation (Acute) Nondiabetic gastroparesis (Acute) GERD (gastroesophageal reflux disease) (Acute) COVID-19 (Acute) Dyslipidemia (Acute) Mild asthma (Acute) Lumbar spondylosis (Acute) Past Medical History Medical History Chronic constipation COPD (chronic obstructive pulmonary disease) COVID-19 Diverticulitis Dyslipidemia GERD (gastroesophageal reflux disease) History of smoking at least 1 pack per day for at least 30 years Hospital discharge follow-up Hypercalcemia Lumbar spondylosis Mild asthma Nondiabetic gastroparesis Family History Family History Father Medical history unknown Mother Hypertension Diabetes High cholesterol Son Bipolar 1 disorder Anxiety Mental health disorder Family history of problems with anesthesia: No Surgical History Surgical History (Updated 05/30/22 @ 11:51 by Kennedi Elise RN) Hx of colonoscopy Hyperhidrosis History of Problems with Anesthesia: No Social History Social History Household Members: None Housing: Apartment Are you a primary post anesthesia care unit nurse to a significant other at home: No Do you presently have visiting nurse or other home services: No Alcohol intake: current Alcohol intake frequency: a few times a month Alcohol type: beer Patient Tobacco Use Status: Current someday Tobacco user Tobacco use type: Cigarette Cigarettes Per Day: 1 Years Smoked: 50 e-Cigarette/Vaping Use: Never Used Second Hand Smoke Exposure: No Use of substances other than those prescribed or required for medical reasons: No Have you been hit, kicked, punched, or otherwise hurt by someone within the past year? If so, by whom?: No Are you DNR?: No Advance Directives: No Advance Directives Information Provided: Yes (brochure mailed) Advance Directives on File: No Recently lost weight without trying: No Eating poorly because of decreased appetite: No Nutrition Risks: No Nutritional Risk Poor oral hygiene: No (upper full & lower partial denture) service: No Current occupational status: disabled Cognitive needs: No Hearing needs: No Vision needs: Yes Meds Allergies Allergy/AdvReac Type Severity Reaction Status Date / Time aspirin AdvReac Unknown stomach Verified 05/28/22 08:58 upset Active Medications: Current Medications Lactated Ringer's (Lr) 1,000 mls @ 50 mls/hr IVCONT .Q20H SHYLA Last Admin: 06/03/22 08:11 Dose: 50 mls/hr Home Medications Medication Instructions Recorded Confirmed Last Taken Type acetaminophen 650 mg 650 mg PO Q8H PRN Pain 02/21/22 05/30/22 Unknown History tablet,extended release (Tylenol Arthritis Pain) ibuprofen 400 mg tablet 400 mg PO Q8H PRN Pain 02/21/22 05/30/22 Unknown History Exam Exam Date and Time: June 03, 2022 1036 Height,Weight and Vital Signs: Height 4 ft 8 in Weight 62.142 kg Last Vital Signs Temp 97 F 06/03/22 09:51 Pulse 87 06/03/22 09:51 Resp 18 06/03/22 09:51 BP 142/45 H 06/03/22 09:51 Pulse Ox 97 06/03/22 09:51 O2 Del Method 06/03/22 09:51 Airway Mallampati Class: II TM Dist: >3cm Neck ROM: Limited Loose/Missing/Broken Teeth: No Heart: rrr Lungs: cta Assessment and Plan Final Anesthetic Review Family History of Problems with Anesthesia: No History of Problems with Anesthesia: No ASA Class: III Final Preanesthetic Review: No Changes in Pt Med Stat, Meds/Allgs Chart Reviewed, Consent Obtained/Reviewed and Anes Risks/Benef Reviewed Patient Risk: Intermediate Procedure Risk: Intermediate Anesthetic Plan Anesthetic Plan: MAC: and Agree w/ Assess. and Plan Disposition: Standard PACU
== END 2022-06-03 10:49 | disposition home or self-care (01) ==
PROVIDERS: PCP Internal Medicine; Visit Provider Internal Medicine Gastroenterology
PROC: (CPT 45385; principal; 2022-06-03 08:30)
DX: R19.5 Other fecal abnormalities (principal); D12.8 Benign neoplasm of rectum; K63.5 Polyp of colon; K57.30 Diverticulosis of large intestine without perforation or abscess without bleeding; Z87.19 Personal history of other diseases of the digestive system; K59.09 Other constipation; K21.9 Gastro-esophageal reflux disease without esophagitis; K29.70 Gastritis, unspecified, without bleeding; K31.84 Gastroparesis; R79.89 Other specified abnormal findings of blood chemistry; J44.9 Chronic obstructive pulmonary disease, unspecified; E78.5 Hyperlipidemia, unspecified; E83.52 Hypercalcemia; Z79.51 Long term (current) use of inhaled steroids; Z79.899 Other long term (current) drug therapy; Z88.8 Allergy status to other drugs, medicaments and biological substances; Z87.891 Personal history of nicotine dependence; Z86.16 Personal history of COVID-19
CPT/HCPCS: 45385; 43239; 88305; 88342

== ENCOUNTER → 2022-06-17 09:36 | Outpatient (BNVA) | payer MEDICARE, MEDICAID, OTHER, SELFPAY | PROVIDERS: PCP Internal Medicine; Visit Provider Physician Assistant | DX: K59.09 Other constipation (principal); K21.9 Gastro-esophageal reflux disease without esophagitis; K57.30 Diverticulosis of large intestine without perforation or abscess without bleeding | CPT/HCPCS: 99212 ==

== ENCOUNTER 2022-07-29 08:46 | Outpatient (REF) | payer MEDICARE, OTHER, SELFPAY ==
--- NOTE | ~2022-07-29 | MR_ITS ---
MR LUMBAR SPINE WITHOUT CONTRAST CLINICAL INFORMATION: Increasing chronic low back pain with left lower extremity paresthesias. COMPARISON: Lumbar spine MRI 09/18/2018. TECHNIQUE: MRI of the lumbar spine was obtained using routine sequences without contrast. FINDINGS: 5 nonrib-bearing lumbar-type vertebral bodies. 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 Leftward convex lumbar scoliosis unchanged. Grade 1 retrolisthesis of L1 on L2 and L4 on L5. Grade 1 anterolisthesis of L5 on S1 in the setting of a right-sided L5 pars defect unchanged moderate to severe disc volume loss at L2-L3 and L3-L4 and moderate disc volume loss at L4-L5. Disc desiccation at all lumbar levels. There is no bone marrow edema. There are no acute fractures. Conus terminates at the L1-L2 level. Multilevel endplate osteophytes. Sigmoid diverticulosis. L1-L2: Diffuse annular disc bulge and mild bilateral facet arthropathy. No central canal stenosis. There is mild foraminal encroachment bilaterally. Findings are unchanged. L2-L3: Diffuse annular disc bulge with a superimposed right lateral disc osteophyte protrusion and mild bilateral facet arthropathy. There is no central canal stenosis. Similar moderate to severe right foraminal stenosis with compression of the exiting right L2 nerve root. No central canal and no left foraminal stenosis. L3-L4: Disc osteophyte complex eccentric to the right side with a superimposed right lateral disc osteophyte protrusion. Findings in concert result in severe right subarticular zone stenosis with compression of the traversing right L4 nerve roots bilaterally in severe right foraminal stenosis with compression of the exiting right L3 nerve root. Findings are unchanged. Central canal remains patent. L4-L5: A left paracentral/left lateral disc protrusion that is in part disc osteophyte results in similar compression of the traversing left L5 nerve root within the left subarticular zone and severe left foraminal stenosis with compression of the exiting left L4 nerve root. L5-S1: Diffuse annular disc bulge and moderate bilateral facet arthropathy. No central canal stenosis. Mild foraminal encroachment bilaterally. Advanced hypertrophic degenerative changes across the left L5-S1 pseudoarticulation result in anterior mass effect on the extraforaminal left L4 nerve root overlying this location. MR/MR lumbar spine wo con IMPRESSION: - At L5-S1, advanced hypertrophic degenerative changes across the left L5-S1 pseudoarticulation result in similar mass effect on the extraforaminal left L4 nerve root overlying this location. - At L4-L5, a left paracentral/left lateral disc protrusion that is in part disc osteophyte results in similar compression of the traversing left L5 nerve root within the left subarticular zone and severe left foraminal stenosis with compression of the exiting left L4 nerve root. - At L3-L4, multifactorial degenerative changes result in similar severe right subarticular zone stenosis with compression of the traversing right L4 nerve root laterally and severe right foraminal stenosis with compression of the exiting right L3 nerve root. - At L2-L3, multifactorial degenerative changes result in similar moderate to severe right foraminal stenosis with compression of the exiting right L2 nerve root. - Leftward convex lumbar scoliosis. 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 - Stable grade 1 anterolisthesis of L5 on S1 in the setting of a right-sided L5 pars defect.
== END 2022-07-29 08:47 | disposition home or self-care (01) ==
LOC: HO.MRI 08:46
PROVIDERS: PCP Internal Medicine; Visit Provider Physician Assistant
DX: M54.16 Radiculopathy, lumbar region (principal); M99.33 Osseous stenosis of neural canal of lumbar region
CPT/HCPCS: 72148

== ENCOUNTER 2022-10-01 14:24 | Outpatient (REF) | payer OTHER, SELFPAY ==
--- NOTE | ~2022-10-01 | XR_ITS ---
EXAMINATION: XR HIP, RIGHT CLINICAL INFORMATION: Contusion of the hip. COMPARISON: Right hip radiographs dated 10/16/2017. TECHNIQUE: Two views of the right hip. FINDINGS: Bones and soft tissues are normal. No fracture. Alignment is anatomic. Hip joint space is maintained. XR/XR hip RT w [id number] IMPRESSION: Unremarkable right hip.
== END 2022-10-01 14:25 | disposition home or self-care (01) ==
LOC: HO.HMGCX 14:24
PROVIDERS: PCP Internal Medicine; Visit Provider Internal Medicine
DX: S70.01XD Contusion of right hip, subsequent encounter (principal)
CPT/HCPCS: 73502

== ENCOUNTER 2022-10-03 12:24 | Emergency (ER) | payer OTHER, SELFPAY ==
--- NOTE | ~2022-10-03 | US_ITS ---
EXAMINATION: US ABDOMEN LIMITED CLINICAL INFORMATION: Pain. COMPARISON: CT abdomen 06/25/2021 TECHNIQUE: Real-time imaging of the right upper quadrant abdominal viscera. FINDINGS: PANCREAS: Visualized portions of the pancreas are unremarkable. The pancreatic tail is obscured by bowel gas. LIVER: The liver is normal in size. The liver contour is normal. Parenchymal echogenicity is normal. No focal hepatic lesion. Trace central intrahepatic biliary duct dilatation. GALLBLADDER: Gallbladder is distended. No stones, sludge, polyps, wall thickening or pericholecystic fluid. Negative sonographic Luna's tenderness. COMMON BILE DUCT: Minimally dilated for age measuring 8 mm. RIGHT KIDNEY: Normal. No hydronephrosis. No renal calculi or focal parenchymal lesions. The kidney measures 10.2 cm in maximum dimension. FREE FLUID: None. US/US abdomen limited IMPRESSION: * Normal intra and extrahepatic biliary duct dilatation. The gallbladder is distended without cholelithiasis or other findings to suggest acute cholecystitis. Consider correlation with LFTs and if any clinical concern for biliary obstruction a MRCP could be obtained.
--- NOTE | ~2022-10-03 | XR_ITS ---
EXAMINATION: XR CHEST CLINICAL INFORMATION: Chest pain, shortness of breath. COMPARISON: Chest radiographs dated 01/24/2021. TECHNIQUE: Frontal view of the chest was obtained. FINDINGS: No significant abnormality is noted involving the heart, lungs, mediastinum, bony thorax or soft tissues. XR/XR chest 1V IMPRESSION: No acute cardiopulmonary process.
[2022-10-03 12:29] VITALS: BP 154/60; PULSE 102; RESP 20; TEMP 36.8; O2SAT 94; BMI 27.1
--- NOTE | 2022-10-03 12:32 | ECG_ITS ---
Test Reason : SP,SOB Blood Pressure : / mmHG Vent. Rate : 100 BPM Atrial Rate : 100 BPM P-R Int : 132 ms QRS Dur : 076 ms QT Int : 328 ms P-R-T Axes : 069 028 042 degrees QTc Int : 423 ms Normal sinus rhythm Low voltage QRS Borderline ECG When compared with ECG of 07-FEB-2022 11:12, Premature ventricular complexes are no longer Present Referred By: Renee Wood Electronically Signed By:Juan Carlos Atkins
--- NOTE | 2022-10-03 12:33 | ED.GENADULT ---
HPI - General Adult General Chief complaint: Abdominal Pain Stated complaint: r side pain Time Seen by Provider: 10/03/22 16:15 Source: patient Mode of arrival: ambulatory Limitations: no limitations History of Present Illness HPI narrative: Patient is 67-year-old female who presents emergency department for 1-2 months of right upper quadrant abdominal/right lower chest pain that has been constant in nature, described as intermittently stabbing in made worse with deep inspiration and particular movements. Pain was significantly worse today which prompted her to come to the emergency department. Denies any trauma or injury. She reports a chronic nonproductive cough without any acute changes to sputum. Denies fevers, chills, upper anterior chest pain, neck pain, shortness of breath, difficulty breathing, nausea, vomiting, diarrhea, constipation, dysuria, urinary frequency/urgency/hesitancy, hematuria, numbness or tingling of the extremities, generalized weakness. Related Data Home Medications Medication Instructions Recorded Confirmed acetaminophen 650 mg 650 mg PO Q8H PRN Pain 02/21/22 10/01/22 tablet,extended release (Tylenol Arthritis Pain) ibuprofen 400 mg tablet 400 mg PO Q8H PRN Pain 02/21/22 10/01/22 Previous Rx's Medication Instructions Recorded methylcellulose (laxative) 500 mg 500 mg PO BID #60 tabs 12/17/21 tablet (Citrucel) polyethylene glycol 3350 17 17 g PO DAILY #510 grams 12/17/21 gram/dose oral powder (Miralax) Spiriva Respimat 2.5 mcg/actuation 2 puff inhalation DAILY #4 mL 03/18/22 solution for inhalation (tiotropium bromide) Breo Ellipta 100 mcg-25 mcg/dose 1 ea PO DAILY #60 ea 06/06/22 powder for inhalation (fluticasone furoate-vilanterol) fenofibrate 54 mg tablet 54 mg PO DAILY 90 days #90 tabs 06/24/22 Ventolin HFA 90 mcg/actuation 2 puff inhalation Q6H PRN 06/25/22 aerosol inhaler (albuterol sulfate) shortness of breath or wheezing 30 days #8 grams docusate sodium 100 mg capsule 200 mg PO BEDTIME #60 caps 09/04/22 (Colace) oxycodone-acetaminophen 5 mg-325 1 tab PO TID PRN pain #84 tabs 09/10/22 mg tablet atorvastatin 40 mg tablet 40 mg PO DAILY #90 tabs 09/25/22 cyclobenzaprine 10 mg tablet 10 mg PO BEDTIME #14 tabs 10/01/22 cefuroxime axetil 250 mg tablet 250 mg PO BID #13 tabs 10/03/22 naproxen 500 mg tablet 500 mg PO BID PRN pain #14 tabs 10/03/22 Allergies Allergy/AdvReac Type Severity Reaction Status Date / Time aspirin AdvReac Unknown stomach Verified 10/03/22 12:33 upset Review of Systems Review of Systems: Yes all other systems are reviewed and are negative [facility] Past Medical History Attestation statement: The following information was validated with the patient. Source: old records reviewed Medical History Chronic constipation COPD (chronic obstructive pulmonary disease) COVID-19 Diverticulitis Dyslipidemia GERD (gastroesophageal reflux disease) History of smoking at least 1 pack per day for at least 30 years Hospital discharge follow-up Hypercalcemia Lumbar spondylosis Mild asthma Nondiabetic gastroparesis Surgical History History of esophagogastroduodenoscopy (EGD) Hx of colonoscopy Hyperhidrosis Family History Family History Father Medical history unknown Mother Hypertension Diabetes High cholesterol Son Bipolar 1 disorder Anxiety Mental health disorder Social History Social History (Updated 06/25/22 @ 11:10 by Kaela Levine MD) Household Members: None Housing: Apartment Are you a primary home care assistant to a significant other at home: No Do you presently have visiting nurse or other home services: No Alcohol intake: current Alcohol intake frequency: a few times a month Alcohol type: beer Patient Tobacco Use Status: Former Tobacco user Tobacco use type: Cigarette Cigarettes Per Day: 1 Years Smoked: 50 e-Cigarette/Vaping Use: Never Used Second Hand Smoke Exposure: No Advance Directives: No Advance Directives Information Provided: No service: No Current occupational status: disabled Cognitive needs: No Hearing needs: No Vision needs: Yes Physical Exam ED Vital Signs: Vital Signs - 24 hr 10/03/22 12:29 10/03/22 16:19 10/03/22 18:21 Temperature 98.2 F Pulse Rate 102 H 98 99 Respiratory Rate 20 18 16 Blood Pressure 154/60 H 154/58 H 135/53 L Pulse Oximetry 94 95 97 Oxygen Delivery Method Room Air Room Air Room Air BMI result Body Mass Index 27.1 Appearance: Alert.?Oriented to person, place and time. No acute distress.?Normal affect. Eyes: Pupils equal, round and reactive to light.? ENT: Pharynx normal.?? Neck: Normal inspection.? Neck supple.?? CVS: Heart sounds normal. Normal heart rate and rhythm.? Pulses normal.?? Respiratory: No respiratory distress.? Lung sounds clear to auscultation bilaterally. Right lateral chest wall tenderness upon palpation Abdomen: Soft with RUQ tenderness upon palpation, negative Luna sign. Normoactive bowel sounds. Skin: Skin warm and dry.? Normal skin color.? ? Extremities: No lower extremity edema.? No calf ttp? Neuro: Moves all extremities spontaneously. Sensation intact bilaterally. No focal neuro deficits. Ambulates with normal steady gait. Course Course Course Narrative: This is an RME: Additional HPI, ROS, PE not included below will be deferred to primary provider. 67 yo F hx of diverticulosis, HLD, COPD, GERd presenting w/ RUQ w/ radiation to back and chest discomfort w/ some sob X 3 days. No trauma. No fevers, chills Plan- labs, urine, imaging Reevaluation(s) Reevaluation #1: CBC reveals a leukocytosis 14.4, normocytic anemia which is consistent with baseline, thrombocytosis which is consistent with baseline. CMP is unremarkable, lipase is within normal limits. Troponin <2.7, EKG revealing normal sinus rhythm without acute ischemic findings/ STEMI. BNP 37, CXR without acute cardiopulmonary process, no evidence of pneumonia, pulmonary edema. Urinalysis has not yet been obtained, although she denies dysuria, urinary frequency/urgency/hesitancy, or hematuria. Will trial naproxen for pain at this time. COVID-19 testing is negative Time: 16:26 Reevaluation #2: Urinalysis concerning for urinary tract infection, given age, in addition leukocytosis, will treat as urinary infection at this time. Ultrasound reveals gallbladder stanchion without cholelithiasis or findings of acute cholecystitis, at this time of a low suspicion for any biliary obstruction given normal LFTs lipase, ultrasound is without evidence of hydronephrosis or calculi. Suspect pain at this time to be most consistent with musculoskeletal in nature, for which I will send a prescription for naproxen for pain management as she is already taking oxycodone for chronic back pain.. Reviewed these findings with patient. Discussed worrisome signs and symptoms that would warrant re-evaluation in the emergency department. All questions answered. She is stable for discharge. Time: 20:22 Medications Administered Discontinued Medications Generic Name Dose Route Start Last Admin Trade Name Jeremyq PRN Reason Stop Dose Admin Naproxen 500 mg 10/03/22 16:41 10/03/22 16:51 Naproxen 500 Mg Tablet PO 10/03/22 16:42 500 mg ONCE ONE Administration Medical Decision Making Medical Decision Making MDM Narrative: Patient is a 67-year-old female with past medical history of COPD, dyslipidemia, GERD, spondylosis, asthma who present to the emergency department for evaluation of right upper quadrant/right lower chest wall pain radiating laterally across her side and into the back as noted in HPI. She is overall well-appearing female nontoxic, afebrile. Will obtain CBC to evaluate for leukocytosis/ anemia, CMP and lipase to evaluate for abnormal electrolytes /abnormal renal function/ abnormal hepatic/biliary function, EKG and troponin to evaluate for ischemia/ACS. Chest x-ray to evaluate for consolidation/ infiltrate/ mass/ pulmonary congestion and Urinalysis. Differential Diagnosis Differential Diagnoses: The differential diagnosis associated with the presentation includes (Biliary colic, cholecystitis, cholelithiasis, cholangitis, nephrolithiasis, renal colic, ureteral calculi, urinary tract infection, musculoskeletal pain) Lab Data MDM Lab Attestation statement: I reviewed the patient's lab results. (I have reviewed the labs and indicated pertinent abnormalities as noted in course) 10/03/22 12:49 10/03/22 12:49 Labs: Lab Results 10/03/22 10/03/22 10/03/22 Range/Units 12:49 12:49 12:49 WBC 14.4 H (4.8-10.8) X10*3/uL RBC 3.43 L (4.20-5.50) X10*6/uL Hgb 10.2 L (12.0-16.0) g/dl Hct 30.6 L (37.0-47.0) % MCV 89.2 (80.0-98.0) fL MCH 29.7 (27.0-33.0) pg MCHC 33.3 (31.0-35.0) g/dl RDW 15.9 (11.0-16.0) % Plt Count 601 H (160-400) X10*3/uL MPV 9.1 L (9.4-12.3) fL Immature Gran % (Auto) 0.3 (0.0-0.4) % Neut % (Auto) 72.4 (45-73) % Lymph % (Auto) 17.4 L (20-40) % Hettinger % (Auto) 7.8 (2-11) % Eos % (Auto) 1.5 (0-4) % Baso % (Auto) 0.6 (0-2) % Lymph # (Auto) 2.5 (1.2-4.9) X10*3/uL Hettinger # (Auto) 1.1 (0.1-1.2) X10*3/uL Eos # (Auto) 0.2 (0.0-0.4) X10*3/uL Baso # (Auto) 0.1 (0.0-0.2) X10*3/uL Abs Immat Gran (auto) 0.05 H (0.00-0.03) X10*3/uL Absolute Neuts (auto) 10.5 H (2.0-8.3) x10*3/uL Absolute Nucleated RBC 0.000 (0.0-0.012) X10*3/uL Nucleated RBC % (auto) 0.0 (0.0-0.2) /100WBC D-Dimer High Sensitivty < 150 NG/ML Sodium 138 (135-145) mmol/L Potassium 4.0 (3.3-5.1) mmol/L Chloride 101 (96-108) mmol/L Carbon Dioxide 26 (22-29) mmol/L Anion Gap 15 (12-20) BUN 8 L (9-16) mg/dL Creatinine 0.70 (0.5-1.4) mg/dL Estim Creat Clear Calc 52.4 Estimated GFR > 60 Random Glucose 117 H (60-115) mg/dL Calcium 9.6 (8.4-10.2) mg/dL Magnesium 1.9 (1.6-2.6) mg/dL Total Bilirubin 0.3 (0.0-1.0) mg/dL AST 14 (5-31) U/L ALT 10 (0-31) U/L Alkaline Phosphatase 85 (39-117) U/L Troponin I High Sens (<3.5-17.0) ng/L B-Natriuretic Peptide (<100) pg/mL Total Protein 6.9 (6.5-8.0) g/dL Albumin 3.8 (3.5-5.0) g/dL Lipase 15 (8-78) U/L Urine Color Urine Appearance Urine pH (5.0-9.0) Ur Specific Chester (1.005-1.025) Urine Protein (Neg-Trace) mg/dL Urine Glucose (UA) (Negative) mg/dL Urine Ketones (Negative) mg/dL Urine Blood (Negative) Urine Nitrite (Negative) Ur Leukocyte Esterase (Negative) Urine RBC (0-2) /HPF Urine WBC (0-5) /HPF Ur Squamous Epith Cells (0-2) /HPF Urine Bacteria (None Seen) Hyaline Casts (0-2) /LPF COVID-19 (SUKH) (Negative) COVID-19 Clin Com 10/03/22 10/03/22 10/03/22 Range/Units 12:49 12:49 12:49 WBC (4.8-10.8) X10*3/uL RBC (4.20-5.50) X10*6/uL Hgb (12.0-16.0) g/dl Hct (37.0-47.0) % MCV (80.0-98.0) fL MCH (27.0-33.0) pg MCHC (31.0-35.0) g/dl RDW (11.0-16.0) % Plt Count (160-400) X10*3/uL MPV (9.4-12.3) fL Immature Gran % (Auto) (0.0-0.4) % Neut % (Auto) (45-73) % Lymph % (Auto) (20-40) % Hettinger % (Auto) (2-11) % Eos % (Auto) (0-4) % Baso % (Auto) (0-2) % Lymph # (Auto) (1.2-4.9) X10*3/uL Hettinger # (Auto) (0.1-1.2) X10*3/uL Eos # (Auto) (0.0-0.4) X10*3/uL Baso # (Auto) (0.0-0.2) X10*3/uL Abs Immat Gran (auto) (0.00-0.03) X10*3/uL Absolute Neuts (auto) (2.0-8.3) x10*3/uL Absolute Nucleated RBC (0.0-0.012) X10*3/uL Nucleated RBC % (auto) (0.0-0.2) /100WBC D-Dimer High Sensitivty NG/ML Sodium (135-145) mmol/L Potassium (3.3-5.1) mmol/L Chloride (96-108) mmol/L Carbon Dioxide (22-29) mmol/L Anion Gap (12-20) BUN (9-16) mg/dL Creatinine (0.5-1.4) mg/dL Estim Creat Clear Calc Estimated GFR Random Glucose (60-115) mg/dL Calcium (8.4-10.2) mg/dL Magnesium (1.6-2.6) mg/dL Total Bilirubin (0.0-1.0) mg/dL AST (5-31) U/L ALT (0-31) U/L Alkaline Phosphatase (39-117) U/L Troponin I High Sens < 2.7 (<3.5-17.0) ng/L B-Natriuretic Peptide 37 (<100) pg/mL Total Protein (6.5-8.0) g/dL Albumin (3.5-5.0) g/dL Lipase (8-78) U/L Urine Color Urine Appearance Urine pH (5.0-9.0) Ur Specific Chester (1.005-1.025) Urine Protein (Neg-Trace) mg/dL Urine Glucose (UA) (Negative) mg/dL Urine Ketones (Negative) mg/dL Urine Blood (Negative) Urine Nitrite (Negative) Ur Leukocyte Esterase (Negative) Urine RBC (0-2) /HPF Urine WBC (0-5) /HPF Ur Squamous Epith Cells (0-2) /HPF Urine Bacteria (None Seen) Hyaline Casts (0-2) /LPF COVID-19 (SUKH) Negative (Negative) COVID-19 Clin Com See Note 10/03/22 Range/Units 17:37 WBC (4.8-10.8) X10*3/uL RBC (4.20-5.50) X10*6/uL Hgb (12.0-16.0) g/dl Hct (37.0-47.0) % MCV (80.0-98.0) fL MCH (27.0-33.0) pg MCHC (31.0-35.0) g/dl RDW (11.0-16.0) % Plt Count (160-400) X10*3/uL MPV (9.4-12.3) fL Immature Gran % (Auto) (0.0-0.4) % Neut % (Auto) (45-73) % Lymph % (Auto) (20-40) % Hettinger % (Auto) (2-11) % Eos % (Auto) (0-4) % Baso % (Auto) (0-2) % Lymph # (Auto) (1.2-4.9) X10*3/uL Hettinger # (Auto) (0.1-1.2) X10*3/uL Eos # (Auto) (0.0-0.4) X10*3/uL Baso # (Auto) (0.0-0.2) X10*3/uL Abs Immat Gran (auto) (0.00-0.03) X10*3/uL Absolute Neuts (auto) (2.0-8.3) x10*3/uL Absolute Nucleated RBC (0.0-0.012) X10*3/uL Nucleated RBC % (auto) (0.0-0.2) /100WBC D-Dimer High Sensitivty NG/ML Sodium (135-145) mmol/L Potassium (3.3-5.1) mmol/L Chloride (96-108) mmol/L Carbon Dioxide (22-29) mmol/L Anion Gap (12-20) BUN (9-16) mg/dL Creatinine (0.5-1.4) mg/dL Estim Creat Clear Calc Estimated GFR Random Glucose (60-115) mg/dL Calcium (8.4-10.2) mg/dL Magnesium (1.6-2.6) mg/dL Total Bilirubin (0.0-1.0) mg/dL AST (5-31) U/L ALT (0-31) U/L Alkaline Phosphatase (39-117) U/L Troponin I High Sens (<3.5-17.0) ng/L B-Natriuretic Peptide (<100) pg/mL Total Protein (6.5-8.0) g/dL Albumin (3.5-5.0) g/dL Lipase (8-78) U/L Urine Color Yellow Urine Appearance Cloudy Urine pH 8.5 (5.0-9.0) Ur Specific Chester 1.020 (1.005-1.025) Urine Protein Trace (Neg-Trace) mg/dL Urine Glucose (UA) Negative (Negative) mg/dL Urine Ketones Negative (Negative) mg/dL Urine Blood Negative (Negative) Urine Nitrite Negative (Negative) Ur Leukocyte Esterase Large (3+) H (Negative) Urine RBC 3-5 H (0-2) /HPF Urine WBC >50 H (0-5) /HPF Ur Squamous Epith Cells 0-2 (0-2) /HPF Urine Bacteria 4+ (None Seen) Hyaline Casts 0-2 (0-2) /LPF COVID-19 (SUKH) (Negative) COVID-19 Clin Com Independent Interpretation I performed an independent interpretation of an: EKG, Plain X-Ray (I personally interpreted chest x-ray as noted in course, I agree with radiologist impression) and Ultrasound Interpretation: Rate: 100 Rhythm:? Normal sinus rhythm Thor:? Normal Normal P waves.? Normal EDITA.?? Normal QRS complex.?? ST T wave :??No ST elevation, no ST depression, no T-wave inversion qTC: 423 prior studies:? February 2022 The study has been interpreted contemporaneously by me. Radiology Impression Discussion of test interpretation with radiology: I have reviewed the radiologist's reading. Radiologist Impression: XR/XR chest 1V IMPRESSION: No acute cardiopulmonary process. US/US abdomen limited IMPRESSION: *? Normal intra and extrahepatic biliary duct dilatation. The gallbladder is distended without cholelithiasis or other findings to suggest acute cholecystitis. Consider correlation with LFTs and if any clinical concern for biliary obstruction a MRCP could be obtained. ? ? External Record Review External record reviewed: Prior outpatient labs and Primary care record Discharge Plan Discharge Clinical Impression: Acute costochondritis, Urinary tract infection Patient Disposition: Home, Self-Care Instructions: Urinary Tract Infection in Women (DC) Additional Instructions: As discussed, I have sent a prescription for antibiotic to cover urinary tract infection to your pharmacy. You received the 1st dose here in the emergency department today, start taking this tomorrow morning at home. I have sent a prescription for naproxen, anti-inflammatory medication to your pharmacy. Do not take additional ibuprofen/Aleve/Advil/Motrin or aspirin while taking this medication Please contact your primary care provider to arrange for a follow-up visit within 1-3 days. You may return back to emergency department any new or worsening symptoms or concerns. Prescriptions: New cefuroxime axetil 250 mg tablet 250 mg PO BID Qty: 13 0RF naproxen 500 mg tablet 500 mg PO BID PRN (Reason: pain) Qty: 14 0RF No Action Spiriva Respimat 2.5 mcg/actuation mist 2 puff inhalation DAILY Qty: 4 5RF Breo Ellipta 100-25 mcg/dose blister with device 1 ea PO DAILY Qty: 60 3RF fenofibrate 54 mg tablet 54 mg PO DAILY 90 Days Qty: 90 3RF docusate sodium [Colace] 100 mg capsule 200 mg PO BEDTIME Qty: 60 5RF oxycodone-acetaminophen 5-325 mg tablet 1 tab PO TID PRN (Reason: pain) Qty: 84 0RF atorvastatin 40 mg tablet 40 mg PO DAILY Qty: 90 0RF acetaminophen [Tylenol Arthritis Pain] 650 mg Tablet Extended Release 650 mg PO Q8H PRN (Reason: Pain) ibuprofen 400 mg Tablet 400 mg PO Q8H PRN (Reason: Pain) albuterol sulfate [Ventolin HFA] 90 mcg/actuation HFA aerosol inhaler 2 puff inhalation Q6H PRN (Reason: shortness of breath or wheezing) 30 Days Qty: 8 0RF cyclobenzaprine 10 mg tablet 10 mg PO BEDTIME Qty: 14 0RF Citrucel 500 mg tablet 500 mg PO BID Qty: 60 5RF polyethylene glycol 3350 [Miralax] 17 gram/dose powder 17 g PO DAILY Qty: 510 2RF Referrals: Kaela Briceno MD [Primary Care Provider] -
[2022-10-03 12:57] LABS: MANUAL DIFF FLAG NO
[2022-10-03 12:58] LABS: Basophils Absolute Auto 0.1 X10*3/uL (0.0-0.2); Basophils Percent Auto 0.6 % (0-2); Eosinophils Absolute Auto 0.2 X10*3/uL (0.0-0.4); Eosinophils Percent Auto 1.5 % (0-4); Hematocrit 30.6 % (37.0-47.0); Hemoglobin 10.2 g/dl (12.0-16.0); Imm Gran Abs Auto 0.05 X10*3/uL (0.00-0.03); Imm Gran Pct Auto 0.3 % (0.0-0.4); Lymphocytes Absolute Auto 2.5 X10*3/uL (1.2-4.9); Lymphocytes Percent Auto 17.4 % (20-40); Mean Corpuscular HGB Conc 33.3 g/dl (31.0-35.0); Mean Corpuscular Hemoglobin 29.7 pg (27.0-33.0); Mean Corpuscular Volume 89.2 fL (80.0-98.0); Mean Platelet Volume 9.1 fL (9.4-12.3); Monocytes Absolute Auto 1.1 X10*3/uL (0.1-1.2); Monocytes Percent Auto 7.8 % (2-11); Neutrophils Absolute Auto 10.5 x10*3/uL (2.0-8.3); Neutrophils Percent Auto 72.4 % (45-73); Platelet Count 601 X10*3/uL (160-400); Red Blood Count 3.43 X10*6/uL (4.20-5.50); Red Cell Distribution Width 15.9 % (11.0-16.0); White Blood Count 14.4 X10*3/uL (4.8-10.8)
[2022-10-03 13:07] LABS: D Dimer High Sensitivity < 150 NG/ML
[2022-10-03 13:14] LABS: COVID-19 Test Negative (Negative); IDNOW Serial# 6674DD1D
[2022-10-03 13:15] LABS: Alanine Aminotransferase 10 U/L (0-31); Albumin Level 3.8 g/dL (3.5-5.0); Alkaline Phosphatase 85 U/L (39-117); Anion Gap 15 (12-20); Aspartate Amino Transferase 14 U/L (5-31); Bilirubin Total 0.3 mg/dL (0.0-1.0); Blood Urea Nitrogen 8 mg/dL (9-16); Calcium 9.6 mg/dL (8.4-10.2); Carbon Dioxide 26 mmol/L (22-29); Chloride 101 mmol/L (96-108); Creatinine Clr Calc Pharmacy 52.4; Estimated Glomerular Filt Rate > 60; Glucose Random 117 mg/dL (60-115); Lipase 15 U/L (8-78); Magnesium 1.9 mg/dL (1.6-2.6); Sodium 138 mmol/L (135-145); Total Protein 6.9 g/dL (6.5-8.0)
[2022-10-03 13:21] LABS: B Type Natriuretic Peptide 37 pg/mL (<100)
[2022-10-03 13:22] LABS: Troponin-I High Sensitivity < 2.7 ng/L (<3.5-17.0)
[2022-10-03 16:19] VITALS: BP 154/58; PULSE 98; RESP 18; O2SAT 95
[2022-10-03] MEDS: NaPROXEN 500 MG TABLET PO (16:51)
--- NOTE | 2022-10-03 16:58 | PC.NURSE ---
warm pack applied r
--- NOTE | 2022-10-03 16:59 | PC.NURSE ---
warm pack applied to right side of abdomen
[2022-10-03 17:47] LABS: Appearance Urine Cloudy; Color Urine Yellow; Glucose Urine UA Negative (Negative); Leukocyte Esterase Urine Large (3+) (Negative); Nitrite Urine Negative (Negative); PH 8.5 (5.0-9.0); UMIC TRIGGER UACC YES; Urine Blood Negative (Negative); Urine Ketones Negative (Negative); Urine Protein Trace mg/dL (Neg-Trace)
[2022-10-03 17:50] LABS: Bacteria Urine 4+ (None Seen); Hyaline Casts Urine 0-2 /LPF (0-2); Squamous Epithelial Cell Urine 0-2 /HPF (0-2); UACC Culture Trigger YES; WBC Urine >50 /HPF (0-5)
[2022-10-03 18:21] VITALS: BP 135/53; PULSE 99; RESP 16; O2SAT 97
== END 2022-10-03 20:39 | disposition home or self-care (01) ==
PROVIDERS: Physician Assistant; Emergency Provider Student in an Organized Health Care Education/Training Program; PCP Internal Medicine
DX: N39.0 Urinary tract infection, site not specified (principal); M94.0 Chondrocostal junction syndrome [Tietze]; R10.11 Right upper quadrant pain; R07.9 Chest pain, unspecified; J44.9 Chronic obstructive pulmonary disease, unspecified; E78.5 Hyperlipidemia, unspecified; K21.9 Gastro-esophageal reflux disease without esophagitis; J45.909 Unspecified asthma, uncomplicated
CPT/HCPCS: 36415; 71045; 76705; 80053; 81001; 83690; 83735; 83880; 84484; 85025; 85379; 87086; 87088; 87186; 87635; 93005; 99284

== ENCOUNTER 2022-10-29 10:37 | Outpatient (AMB) | payer OTHER, SELFPAY ==
[2022-10-29 10:43] VITALS: BP 130/68; BMI 27.1
--- NOTE | 2022-10-29 10:43 | A.OFFPC_ITS ---
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 Accompanied by: Self / Same As Patient Allergies aspirin Adverse Reaction (Unknown, Verified 10/29/22 11:03) stomach upset Medication List - Last Reconciled 10/29/22 by Kaela Levine MD acetaminophen ER (Tylenol Arthritis Pain) 650 mg PO Q8H PRN atorvastatin 40 mg PO DAILY Breo Ellipta 100-25 mcg/dose (fluticasone furoate-vilanterol) 1 ea PO DAILY NS docusate sodium (Colace) 200 mg (2 x 100 mg) PO BEDTIME fenofibrate 54 mg PO DAILY 90 days methylcellulose (laxative) (Citrucel) 500 mg PO BID oxycodone-acetaminophen 5-325 mg 1 tab PO TID PRN polyethylene glycol 3350 (Miralax) 17 grams PO DAILY Spiriva Respimat 2.5 mcg/actuation (tiotropium bromide) 2 puffs inhalation DAILY NS Ventolin HFA 90 mcg/actuation (albuterol sulfate) 2 puffs inhalation Q6H PRN 30 days NS Tobacco use date assessed: 06/25/22 Fall risk assessment: No Falls in past year Last assessed Fall Risk: 10/29/22 Dental Screening Dental Screen Date: 10/29/22 Did you have a dental visit in the last 12 months?: No Did you have a dental problem in the last 6 months where you did not have access to dental care?: No Was dental information given to patient?: Patient declined HPI HPI Comments History of Present Illness Details This is a 67-year-old female with GERD, dyslipidemia, COPD and anemia that comes today for follow-up on those conditions. GERD has been stable with medications. Lipid panel will be order for the next office visit. COPD well control with longstanding inhaler and use rescue inhaler few times a month. Has anemia that is worsening and denies any active bleeding. Had a colonoscopy and will have a repeat colonoscopy in November 2022. I will start her on ferrous sulfate once a day and was advised to be taking with vitamin-C. Denies any ches t pain or shortness of breath. [facility] Medical History (Updated 10/29/22 @ 11:08 by Kaela Levine MD) Chronic constipation COPD (chronic obstructive pulmonary disease) COVID-19 Diverticulitis Dyslipidemia GERD (gastroesophageal reflux disease) History of smoking at least 1 pack per day for at least 30 years Hospital discharge follow-up Hypercalcemia Lumbar spondylosis Mild asthma Nondiabetic gastroparesis Surgical History History of esophagogastroduodenoscopy (EGD) Hx of colonoscopy Hyperhidrosis Family History Father Medical history unknown Mother Hypertension Diabetes High cholesterol Son Bipolar 1 disorder Anxiety Mental health disorder Social History Household Members: None Housing: Apartment Are you a primary home care chaplain to a significant other at home: No Do you presently have visiting nurse or other home services: No Alcohol intake: current Alcohol intake frequency: a few times a month Alcohol type: beer Patient Tobacco Use Status: Former Tobacco user Tobacco use type: Cigarette Cigarettes Per Day: 1 Years Smoked: 50 e-Cigarette/Vaping Use: Never Used Second Hand Smoke Exposure: No service: No Current occupational status: disabled Cognitive needs: No Hearing needs: No Vision needs: Yes Questionnaire Thrive Questionnaire Date Thrive assessed: 06/25/22 DELANEY-7 AMB Questionnaire DELANEY-7 Date DELANEY - 7 assessed: 06/25/22 Source: Developed by Drs. Yaya Larson, Colleen Torres, aLzarus Reynolds and colleagues, with an educational zulema from [employer]. Review of Systems Const All systems reviewed & are unremarkable except as noted in HPI and below Eyes Reports no additional complaints, Denies change in vision and Denies other visual disturbances Card Denies chest pain at rest, Denies chest pain with activity, Denies edema, Denies irregular heart rhythm, Denies claudication, Denies dyspnea, Denies dyspnea on exertion, Denies orthopnea, Denies paroxysmal nocturnal dyspnea and Denies slow heart rate Resp Denies cough, Denies dyspnea and Denies dyspnea on exertion GI Denies abdominal pain, Denies change in bowel habits, Reports constipation, Denies excessive flatus, Denies nausea and Denies vomiting Denies urinary incontinence, Denies urinary hesitancy and Denies urinary urgency Musc Denies abnormal gait, Reports back pain, Denies atrophy, Denies deformity and Denies limited range of motion Skin/Breast Denies bleeding lesions, Denies changing lesions and Denies rash Neuro Denies abnormal gait and Denies lack of coordination Physical exam (Primary Care) Vital Signs: Last Vital Signs BP 130/68 10/29/22 10:43 BMI result Body Mass Index 27.1 Tobacco/Smoking Status: Tobacco use Status Tobacco use date assessed 06/25/22 10/29/22 10:48 Patient Tobacco Use Status Former Tobacco user 10/29/22 10:48 Tobacco use type Cigarette 10/29/22 10:48 e-Cigarette/Vaping Use Never Used 10/29/22 10:48 Thrive Assessment: Date of Thrive Assessment Date Thrive assessed 06/25/22 10/29/22 10:48 Eyes General: appearance normal, both eyes and all related structures Eyelids: Yes eyelids normal Conjunctivae: conjunctivae normal Neck Neck: Yes normal visual inspection and Yes supple Resp Effort & Inspection: normal respiratory effort Auscultation: clear to auscultation bilaterally Cardio Jugular venous distension: no JVD Rate: regular rate Rhythm: regular rhythm Heart sounds: S1 normal heart sound present and S2 normal heart sound present Extrem General: Yes full ROM Assessment and Plan Assessment & Plan (1) Dyslipidemia: Code(s): E78.5 - Hyperlipidemia, unspecified Plan: Continue statins. Repeat lipid panel in 4 months. (2) GERD (gastroesophageal reflux disease): Comment: Continue PPI avoid culprits Code(s): K21.9 - Gastro-esophageal reflux disease without esophagitis Qualifiers: Esophagitis presence: esophagitis presence not specified Qualified Code(s): K21.9 - Gastro-esophageal reflux disease without esophagitis Plan: Continue PPIs (3) Anemia: Code(s): D64.9 - Anemia, unspecified Plan: Start ferrous sulfate with vitamin-C. Monitor hemoglobin. (4) COPD (chronic obstructive pulmonary disease): Comment: THIS PATIENT HAS MODERATELY SEVERE OBSTRUCTIVE AIRWAY DISORDER WITH PARTIAL REVERSIBILITY. C/W ASTHMA/COPD OVERLAP SYNDROME, TX : BREO 100-25 ONE INH DAILY SPIRIVA RESPIMAT 2 INH DAILY at night . ALBUTEROL( Ventolin ) HFA 2 PUFFS Q 4-6 HRS ONLY PRN DEEP BREATHING EXERCISES EXPLAINED AND SHE SHOULD DO ABOUT 3 TIMES A DAY. Code(s): J44.9 - Chronic obstructive pulmonary disease, unspecified Plan: Use rescue inhaler as needed. Continue longstanding inhaler. Follow-up with pulmonology. Orders: Orders Lipid Panel 4 Months E78.5 - Hyperlipidemia, unspecified Vitamin D 25-OH Total 4 Months E55.9 - Vitamin D deficiency, unspecified Complete Blood Count Auto Diff 4 Months D64.9 - Anemia, unspecified IRON PROFILE 4 Months D64.9 - Anemia, unspecified Vitamin B12 and Folate 4 Months E53.8 - Deficiency of other specified B group vitamins Comprehensive [place]. Panel Fast 4 Months E78.2 - Mixed hyperlipidemia Medications: New ferrous sulfate 325 mg PO DAILY 90 days 90 tabs 1RF D64.9 - Anemia, unspecified Coding Level of Care Code Est Pt Level 4 (15629) Diagnoses Dyslipidemia E78.5 GERD (gastroesophageal reflux disease) K21.9 Esophagitis presence: esophagitis presence not specified Anemia D64.9 COPD (chronic obstructive pulmonary disease) J44.9 Time Spent (min) 22
== END 2022-10-29 11:11 | disposition home or self-care (01) ==
PROVIDERS: Visit Provider Internal Medicine
DX: E78.5 Hyperlipidemia, unspecified (principal); K21.9 Gastro-esophageal reflux disease without esophagitis; D64.9 Anemia, unspecified; J44.9 Chronic obstructive pulmonary disease, unspecified
CPT/HCPCS: 99214

== ENCOUNTER 2022-11-15 09:59 | Day surgery (SDC) | payer OTHER, SELFPAY ==
[2022-11-13 09:56] VITALS: BMI 27.1
--- NOTE | 2022-11-14 10:27 | HO.ANESPROP2 ---
HPI - Anesthesia Eval Consult details Narrative: 67yo F for Sigmoidoscopy Flexible PMFSH Active Problems Active Problems: All Active Problems (Updated 10/29/22 @ 11:08 by Kaela Levine MD) Anemia (Acute) Contusion, hip (Acute) Diverticulosis of colon (Acute) Adenomatous colon polyp (Acute) Dyspnea (Acute) Mixed hyperlipidemia (Acute) Positive colorectal cancer screening using Cologuard test (Acute) Elevated platelet count (Acute) Hyperkalemia (Acute) Physical exam (Acute) Postmenopausal (Acute) Elevated total protein (Acute) Hypercalcemia (Acute) Hospital discharge follow-up (Acute) Diverticulitis (Acute) Hypercalcemia (Acute) History of smoking at least 1 pack per day for at least 30 years (Acute) COPD (chronic obstructive pulmonary disease) (Acute) Chronic constipation (Acute) Nondiabetic gastroparesis (Acute) GERD (gastroesophageal reflux disease) (Acute) COVID-19 (Acute) Dyslipidemia (Acute) Mild asthma (Acute) Lumbar spondylosis (Acute) Past Medical History Medical History Chronic constipation COPD (chronic obstructive pulmonary disease) COVID-19 Diverticulitis Dyslipidemia GERD (gastroesophageal reflux disease) History of smoking at least 1 pack per day for at least 30 years Hospital discharge follow-up Hypercalcemia Lumbar spondylosis Mild asthma Nondiabetic gastroparesis Family History Family History Father Medical history unknown Mother Hypertension Diabetes High cholesterol Son Bipolar 1 disorder Anxiety Mental health disorder Family history of problems with anesthesia: No Surgical History Surgical History History of esophagogastroduodenoscopy (EGD) Hx of colonoscopy Hyperhidrosis History of Problems with Anesthesia: No Social History Social History Household Members: None Housing: Apartment Are you a primary director of career services to a significant other at home: No Do you presently have visiting nurse or other home services: No Alcohol intake: current Alcohol intake frequency: a few times a month Alcohol type: beer Patient Tobacco Use Status: Former Tobacco user Tobacco use type: Cigarette Cigarettes Per Day: 1 Years Smoked: 50 e-Cigarette/Vaping Use: Never Used Second Hand Smoke Exposure: No service: No Current occupational status: disabled Cognitive needs: No Hearing needs: No Vision needs: Yes Meds Allergies Allergy/AdvReac Type Severity Reaction Status Date / Time aspirin AdvReac Unknown stomach Verified 10/29/22 11:03 upset Home Medications Medication Instructions Recorded Confirmed Last Taken Type acetaminophen 650 mg 650 mg PO Q8H PRN Pain 02/21/22 10/29/22 Unknown History tablet,extended release (Tylenol Arthritis Pain) Exam Exam Date and Time: November 14, 2022 1027 Height,Weight and Vital Signs: Height 4 ft 8 in Weight 54.885 kg Pertinent Lab Results Pertinent Lab Results: Laboratory Tests 10/03/22 10/03/22 12:49 12:49 WBC 14.4 H Hgb 10.2 L Hct 30.6 L Plt Count 601 H Sodium 138 Potassium 4.0 Chloride 101 Carbon Dioxide 26 BUN 8 L Creatinine 0.70 Assessment and Plan Assessment Anesthesia Assessment: Chart Reviewed Final Anesthetic Review Family History of Problems with Anesthesia: No History of Problems with Anesthesia: No
[2022-11-15 11:31] VITALS: BP 154/65; PULSE 83; RESP 18; TEMP 36.6; O2SAT 97; BMI 26.5
--- NOTE | 2022-11-15 11:49 | MHC.SHP ---
Pre-Procedural Eval Section A Date of Service: 11/15/22 The patient is an INPATIENT: No The History & Physical has been completed within 30 days and I have reviewed it.: No Section B Chief Complaint: Fu of a large TVA of the rectum Relevant Family History (Specify if Yes): No Relevant Social History: Tobacco Use Present Medications: see Short Stay Collaborative assessment Medical History: Significant History (COPD (chronic obstructive pulmonary disease) COVID-19 Diverticulitis Dyslipidemia GERD (gastroesophageal reflux disease) History of smoking at least 1 pack per day for at least 30 years Hospital discharge follow-up Hypercalcemia Lumbar spondylosis Mild asthma Nondiabetic gastroparesi) History of Previous Operations: Relevant previous surgery/procedure and date(s) (History of esophagogastroduodenoscopy (EGD) Hx of colonoscopy Hyperhidrosis) Allergies: Allergies Allergy/AdvReac Type Severity Reaction Status Date / Time aspirin AdvReac Unknown stomach Verified 10/29/22 11:03 upset Review of Systems Sugical H&P ROS: Negative: Constitution, Cardiovascular, Respiratory and Gastrointestinal Exam Surgical H&P Exam: Normal: Heart, Normal: Lungs, Normal: Extremities and Normal: Abdomen Plan Diagnosis/Plan: Unchanged I have reviewed the history and physical and performed a pertinent physical examination on my patient. No changes have occurred unless specified. Time Spent With Patient Time: Total time managing care of this patient today ____ minutes.
[2022-11-15] MEDS: Sodium Phosphate,Mono-Dibasic 133 ML ENEMA PR ×2 (12:06→12:11)
[2022-11-15] MEDS: Lactated Ringers 1,000 ML 100 ML IVCONT (12:34)
--- NOTE | 2022-11-15 12:38 | W.PM.OPN ---
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 Post-op diagnosis:? Colon polyp, diverticulosis Endoscopist:? Amador Barroso MD Anesthesia:?MAC Consent: Indications for the procedure and potential complications of bleeding, perforation, reaction to medications and missed diagnosis were discussed with the patient and informed consent was obtained. Instrument: Olympus mid-size upper endoscope Monitoring: Vital signs and clinical assessment, intermittent blood pressure monitoring, continuous EKG monitoring, Pulse oximetry and Carbon Dioxide monitoring were done throughout the procedure. Please see anesthesia flowsheet. Procedure: The patient was placed in the left lateral decubitis position and pre-procedure medications were administered. After a digital rectal examination of the ano-rectum, the video upper endoscope was inserted into the rectum and advanced through the colon to 20 cms into the distal sigmoid colon. The upper endoscope was slowly withdrawn in a retrograde panoramic fashion and the colon mucosa was carefully examined including a retroflexed view of the rectum. Findings and interventions are described below. Procedure Difficulty: Without difficulty Findings: Sigmoid Colon: Moderate diverticulosis Rectum: A 6-7 mm sessile polyp at 10 cms - removed with cold snare. Polypectomy site visualized at 5 cms and no recurrent/residual polyp was seen - biopsies were obtained. Ano-rectum: Moderate internal hemorrhoids Colon preparation: Good Impression and Post Procedure Diagnosis: Colonoscopy Findings: One small polyp removed Polypectomy site visualized at 5 cms and no recurrent/residual polyp was seen - biopsies were obtained. Moderate diverticulosis seen in the sigmoid colon Moderate hemorrhoids on retroflexed exam. Plan: I will send a letter with pathology results Repeat Colonoscopy interval based on path results - in 3 years due to a hx of adenomatous colon polyps. Above findings were reviewed with the patient and colon polyps handout was given in the discharge area
[2022-11-15 12:41] VITALS: PULSE 88; RESP 16; O2SAT 94
[2022-11-15] MEDS: Albuterol Sulfate (0.083%) 2.5 MG/3 ML VIAL.NEB INHALE (12:41)
--- NOTE | 2022-11-15 12:44 | P.CONAN_ITS ---
[facility] Active Problems Active Problems: All Active Problems (Updated 10/29/22 @ 11:08 by Kaela Levine MD) Anemia (Acute) Contusion, hip (Acute) Diverticulosis of colon (Acute) Adenomatous colon polyp (Acute) Dyspnea (Acute) Mixed hyperlipidemia (Acute) Positive colorectal cancer screening using Cologuard test (Acute) Elevated platelet count (Acute) Hyperkalemia (Acute) Physical exam (Acute) Postmenopausal (Acute) Elevated total protein (Acute) Hypercalcemia (Acute) Hospital discharge follow-up (Acute) Diverticulitis (Acute) Hypercalcemia (Acute) History of smoking at least 1 pack per day for at least 30 years (Acute) COPD (chronic obstructive pulmonary disease) (Acute) Chronic constipation (Acute) Nondiabetic gastroparesis (Acute) GERD (gastroesophageal reflux disease) (Acute) COVID-19 (Acute) Dyslipidemia (Acute) Mild asthma (Acute) Lumbar spondylosis (Acute) Past Medical History Medical History Chronic constipation COPD (chronic obstructive pulmonary disease) COVID-19 Diverticulitis Dyslipidemia GERD (gastroesophageal reflux disease) History of smoking at least 1 pack per day for at least 30 years Hospital discharge follow-up Hypercalcemia Lumbar spondylosis Mild asthma Nondiabetic gastroparesis Family History Family History Father Medical history unknown Mother Hypertension Diabetes High cholesterol Son Bipolar 1 disorder Anxiety Mental health disorder Family history of problems with anesthesia: No Surgical History Surgical History History of esophagogastroduodenoscopy (EGD) Hx of colonoscopy Hyperhidrosis History of Problems with Anesthesia: No Social History Social History Household Members: None Housing: Apartment Are you a primary home care chaplain to a significant other at home: No Do you presently have visiting nurse or other home services: No Alcohol intake: current Alcohol intake frequency: a few times a month Alcohol type: beer Patient Tobacco Use Status: Current everyday Tobacco user Tobacco use type: Cigarette Cigarettes Per Day: 3 Years Smoked: 50 e-Cigarette/Vaping Use: Never Used Second Hand Smoke Exposure: No Use of substances other than those prescribed or required for medical reasons: No Are you DNR?: No Advance Directives: No Advance Directives Information Provided: Yes service: No Current occupational status: disabled Cognitive needs: No Hearing needs: No Vision needs: Yes Meds Allergies Allergy/AdvReac Type Severity Reaction Status Date / Time aspirin AdvReac Unknown stomach Verified 10/29/22 11:03 upset Active Medications: Current Medications Albuterol Sulfate (Albuterol Sulfate (0.083%) 2.5 Mg/3 Ml Vial.Neb) 2.5 mg INHALE ONCE PRN PRN Reason: Shortness of Breath/Wheezing Last Admin: 11/15/22 12:41 Dose: 2.5 mg Lactated Ringer's (Lr) 1,000 mls @ 100 mls/hr IVCONT .Q10H SHYLA Last Admin: 11/15/22 12:34 Dose: 100 mls/hr Sodium Biphosphate/Sodium Phosphate (Sodium Phosphate,[place]-Dibasic 133 Ml Enema) 133 ml NH ONCE PRN PRN Reason: Pre-Op Surgical Prep Last Admin: 11/15/22 12:06 Dose: 133 ml Sodium Biphosphate/Sodium Phosphate (Sodium Phosphate,[place]-Dibasic 133 Ml Enema) 133 ml NH ONCE PRN PRN Reason: Pre-Op Surgical Prep Last Admin: 11/15/22 12:11 Dose: 133 ml Home Medications Medication Instructions Recorded Confirmed Last Taken Type acetaminophen 650 mg 650 mg PO Q8H PRN Pain 02/21/22 11/15/22 Unknown History tablet,extended release (Tylenol Arthritis Pain) Exam Exam Date and Time: November 15, 2022 1244 Height,Weight and Vital Signs: Height 4 ft 8 in Weight 53.524 kg Last Vital Signs Temp 97.8 F 11/15/22 11:31 Pulse 83 11/15/22 11:31 Resp 18 11/15/22 11:31 BP 154/65 H 11/15/22 11:31 Pulse Ox 97 11/15/22 11:31 O2 Del Method Room Air 11/15/22 11:31 Airway Mallampati Class: II TM Dist: >3cm Neck ROM: Full Denture: Upper Assessment and Plan Assessment Anesthesia Assessment: Anesthesia Plan Discussed and Chart Reviewed Final Anesthetic Review Family History of Problems with Anesthesia: No History of Problems with Anesthesia: No NPO: Yes ASA Class: III Final Preanesthetic Review: No Changes in Pt Med Stat, Meds/Allgs Chart Reviewed, Consent Obtained/Reviewed and Anes Risks/Benef Reviewed Patient Risk: Intermediate Procedure Risk: Low Anesthetic Plan Anesthetic Plan: MAC: Disposition: Standard PACU
[2022-11-15 13:23] VITALS: BP 102/46; PULSE 92; RESP 17; TEMP 36.6; O2SAT 100
[2022-11-15 13:38] VITALS: BP 130/60; PULSE 94; RESP 17; TEMP 36.1; O2SAT 97
== END 2022-11-15 14:30 | disposition home or self-care (01) ==
PROVIDERS: PCP Internal Medicine; Visit Provider Internal Medicine Gastroenterology
PROC: 0DJD8ZZ Inspection of Lower Intestinal Tract, Via Natural or Artificial Opening Endoscopic (ICD-10-PCS; CPT 45330; principal; 2022-11-15 12:00)
DX: Z12.11 Encounter for screening for malignant neoplasm of colon (principal); Z86.010 Personal history of colon polyps; K62.1 Rectal polyp; K57.30 Diverticulosis of large intestine without perforation or abscess without bleeding; K64.8 Other hemorrhoids; J44.9 Chronic obstructive pulmonary disease, unspecified; K21.9 Gastro-esophageal reflux disease without esophagitis; K31.84 Gastroparesis; E78.5 Hyperlipidemia, unspecified; E87.5 Hyperkalemia; Z79.51 Long term (current) use of inhaled steroids; Z79.899 Other long term (current) drug therapy; Z88.8 Allergy status to other drugs, medicaments and biological substances; F17.210 Nicotine dependence, cigarettes, uncomplicated
CPT/HCPCS: 45338; 45331; 88305; 94640

== ENCOUNTER → 2022-11-15 09:59 | Outpatient (BNV) | payer OTHER, SELFPAY | PROVIDERS: PCP Internal Medicine; Visit Provider Internal Medicine Gastroenterology | DX: Z12.11 Encounter for screening for malignant neoplasm of colon (principal); Z86.010 Personal history of colon polyps; D12.8 Benign neoplasm of rectum; K57.30 Diverticulosis of large intestine without perforation or abscess without bleeding | CPT/HCPCS: 45331; 45338 ==

== ENCOUNTER 2022-11-18 09:27 | Outpatient (AMB) | payer OTHER, SELFPAY ==
[2022-11-18 09:29] VITALS: BP 120/60; PULSE 90; O2SAT 98; BMI 26.7
--- NOTE | 2022-11-18 09:29 | A.OFFVIS_ITS ---
Intake Vital Signs 11/18/22 09:29 Height 4 ft 8 in Weight 119 lb BMI 26.7 BP 120/60 Blood Pressure Location Lt brachial Position Standing Pulse 90 Pulse Source Pulse Oximeter Pulse Oximetry (%) 98 Oxygen Delivery Method Room Air Intake Visit Reasons: Dyspnea Intake Note: pt is here for follow up and feeling good. Sprivia is not being covered Incruse is the formulary. Pharmaceutical Service Representative Required: No Allergies aspirin Adverse Reaction (Unknown, Verified 11/18/22 09:42) stomach upset Medication List - Last Reconciled 11/18/22 by Tian Van MD acetaminophen ER (Tylenol Arthritis Pain) 650 mg PO Q8H PRN atorvastatin 40 mg PO DAILY Breo Ellipta 100-25 mcg/dose (fluticasone furoate-vilanterol) 1 ea PO DAILY NS docusate sodium (Colace) 200 mg (2 x 100 mg) PO BEDTIME fenofibrate 54 mg PO DAILY 90 days ferrous sulfate 325 mg PO DAILY 90 days oxycodone-acetaminophen 5-325 mg 1 tab PO TID PRN Spiriva Respimat 2.5 mcg/actuation (tiotropium bromide) 2 puffs inhalation DAILY NS Ventolin HFA 90 mcg/actuation (albuterol sulfate) 2 puffs inhalation Q6H PRN 30 days NS Do you need a note to return to daycare/school/sports/work: No HPI Dyspnea HPI Details This 67 years old very pleasant female is here for for her 6 months follow-up for Asthma /COPD Breathing ordoñez has b,een doing well except for shortness of breath on walking up hill or climb.ing stairs She has only occasional bouts. of cough and wheezing. Continues to use Breo and Spiriva Respimat, and uses albuterol inhaler onl.y once in a while She has had no acute Resp. infection or exacerbation of her COPD. She had quit smoking last, year but since last visit she resumed smoking a few cigarettes every day. I had a good talk with her. [facility] Medical History Chronic constipation COPD (chronic obstructive pulmonary disease) COVID-19 Diverticulitis Dyslipidemia GERD (gastroesophageal reflux disease) History of smoking at least 1 pack per day for at least 30 years Hospital discharge follow-up Hypercalcemia Lumbar spondylosis Mild asthma Nondiabetic gastroparesis Surgical History History of esophagogastroduodenoscopy (EGD) Hx of colonoscopy Hyperhidrosis Family History Father Medical history unknown Mother Hypertension Diabetes High cholesterol Son Bipolar 1 disorder Anxiety Mental health disorder Social History Household Members: None Housing: Apartment Are you a primary respiratory care specialist to a significant other at home: No Do you presently have visiting nurse or other home services: No Alcohol intake: current Alcohol intake frequency: a few times a month Alcohol type: beer Patient Tobacco Use Status: Current everyday Tobacco user Tobacco use type: Cigarette Cigarettes Per Day: 3 Years Smoked: 50 e-Cigarette/Vaping Use: Never Used Second Hand Smoke Exposure: No service: No Current occupational status: disabled Cognitive needs: No Hearing needs: No Vision needs: Yes Review of Systems Const All systems reviewed & are unremarkable except as noted in HPI and below Eyes Reports no additional complaints ENT Reports no additional complaints Card Denies chest pain, Denies irregular heart rhythm, Denies leg edema and Reports dyspnea on exertion Resp Reports as per HPI and Reports dyspnea on exertion GI Reports constipation and Reports heartburn (CONTROLLED WITH OMEPRAZOLE) Reports no additional complaints Musc Reports back pain (FREQUENT BACK SPASM) Skin/Breast Reports system reviewed and no additional complaints, except as documented Neuro Reports no additional complaints Psych Reports no additional complaints Physical Exam Vital Signs: Last Vital Signs Pulse 90 11/18/22 09:29 BP 120/60 11/18/22 09:29 Pulse Ox 98 11/18/22 09:29 Oxygen Delivery Method Room Air 11/18/22 09:29 BMI result Body Mass Index 26.7 Const General: comfortable (But anxious), no acute distress, alert and awake Orientation/consciousness: patient oriented x3 HEENT Head: Yes normal to inspection General nose exam: No nasal polyps present and No nasal discharge present Face and sinus: Yes sinuses nontender Mouth: oropharynx normal Throat: Yes posterior oropharynx normal Eyes General: appearance normal, both eyes and all related structures Neck Neck: Yes normal visual inspection, Yes no lymphadenopathy, Yes trachea midline and Yes no JVD Thyroid: Thyroid normal Chest Chest palpation & inspection: normal inspection of the chest, normal palpation of entire chest wall and no tenderness Resp Other: Percussion note hyper-resonant, breath sounds are distant with prolonged expiratory phase. No wheezes or rhonchi are heard. Cardio Palpation: normal PMI Rate: regular rate Rhythm: regular rhythm Heart sounds: no gallops and no murmurs Peripheral pulses: Peripheral pulses 2+ throughout GI Palpation (GI): Soft to palpation, nontender, No hepatosplenomegaly present and no masses Auscultation: normal bowel sounds Back/Spine/Pelvis Thoracic/Lumbar Spine: thoracic and lumbar spine normal to inspection Skin General skin exam: no rashes or lesions noted Neuro General: patient oriented x3 and no focal motor deficits Cranial nerves: Yes CN's II-XII intact bilaterally Extrem General: Yes normal to inspection, Yes no clubbing, cyanosis or edema and Yes no calf tenderness Psych Appearance: grossly normal and well kempt Speech and movement: Normal speech and movement present Results Reviewed Results Reviewed: SPIROMETRY IN OFFICE TODAY : FVC=71 % FEV1= 69 % FEF 25-75 =63 % Assessment & Plan Assessment & Plan (1) COPD (chronic obstructive pulmonary disease): Comment: THIS PATIENT HAS MODERATELY SEVERE OBSTRUCTIVE AIRWAY DISORDER WITH PARTIAL REVERSIBILITY. C/W ASTHMA/COPD OVERLAP SYNDROME, LAST PFT IN 2020 [place] : BREO 100-25 ONE INH DAILY Spiriva Respimat REPLACED BY INCRUSE ELLIPTA ONE INH DAILY . ALBUTEROL( Ventolin ) HFA 2 PUFFS Q 4-6 HRS ONLY PRN DEEP BREATHING EXERCISES EXPLAINED AND SHE SHOULD DO ABOUT 3 TIMES A DAY. Code(s): J44.9 - Chronic obstructive pulmonary disease, unspecified (2) History of smoking at least 1 pack per day for at least 30 years: Comment: She has smoked about half pack of cigarettes a day for the last 30 years, QUIT in 2021 , but now resumed smoking 1-2 cigarettes daily . Had a detailed discussion and advised to quit completely . Code(s): Z87.891 - Personal history of nicotine dependence Medications: New umeclidinium 62.5 mcg/actuation (Incruse Ellipta) 1 inh inhalation BEDTIME 30 days 30 ea 5RF copd Coding Level of Care Code Est Pt Level 3 (02677) Diagnoses COPD (chronic obstructive pulmonary disease) J44.9 History of smoking at least 1 pack per day for at least 30 years Z87.556
== END 2022-11-18 10:04 | disposition home or self-care (01) ==
PROVIDERS: PCP Internal Medicine; Visit Provider Internal Medicine
DX: J44.9 Chronic obstructive pulmonary disease, unspecified (principal); Z87.891 Personal history of nicotine dependence
CPT/HCPCS: 99213

== ENCOUNTER → 2022-11-18 09:27 | Outpatient (BNVA) | payer OTHER, SELFPAY | PROVIDERS: PCP Internal Medicine; Visit Provider Internal Medicine | DX: J44.9 Chronic obstructive pulmonary disease, unspecified (principal); R06.00 Dyspnea, unspecified; F17.210 Nicotine dependence, cigarettes, uncomplicated; Z79.899 Other long term (current) drug therapy | CPT/HCPCS: 99212 ==

== ENCOUNTER 2023-03-12 10:25 | Outpatient (AMB) | payer OTHER, SELFPAY ==
[2023-03-12 10:27] VITALS: BP 142/70; BMI 24.0
--- NOTE | 2023-03-12 10:27 | A.OFFPC_ITS ---
Vital Signs 03/12/23 10:27 03/12/23 11:37 Height 4 ft 8 in Weight 107 lb BMI 24.0 BP 142/70 H 138/70 Blood Pressure Location Lt brachial Lt brachial Position Sitting Sitting Intake Visit Reasons: lipids Intake Note: Patient here for a follow up lipids Feeder Loader Required: No Accompanied by: Self / Same As Patient Allergies aspirin Adverse Reaction (Unknown, Verified 03/12/23 10:38) stomach upset Medication List - Last Reconciled 03/12/23 by Kaela Levine MD acetaminophen ER (Tylenol Arthritis Pain) 650 mg PO Q8H PRN atorvastatin 40 mg PO DAILY Breo Ellipta 100-25 mcg/dose (fluticasone furoate-vilanterol) 1 ea PO DAILY NS docusate sodium (Colace) 200 mg (2 x 100 mg) PO BEDTIME fenofibrate 54 mg PO DAILY 90 days ferrous sulfate 325 mg PO DAILY 90 days oxycodone-acetaminophen 5-325 mg 1 tab PO TID PRN Spiriva Respimat 2.5 mcg/actuation (tiotropium bromide) 2 puffs inhalation DAILY NS umeclidinium 62.5 mcg/actuation (Incruse Ellipta) 1 inh inhalation BEDTIME 30 days Ventolin HFA 90 mcg/actuation (albuterol sulfate) 2 puffs inhalation Q6H PRN 30 days NS Tobacco use date assessed: 06/25/22 Fall risk assessment: No Falls in past year Last assessed Fall Risk: 03/12/23 Dental Screening Dental Screen Date: 03/12/23 Did you have a dental visit in the last 12 months?: No Did you have a dental problem in the last 6 months where you did not have access to dental care?: No Was dental information given to patient?: Patient has dentist HPI HPI Comments History of Present Illness Details This is a 67-year-old female with COPD, mixed hyperlipidemia, lumbar spondylosis and anemia that comes today for follow-up on her conditions. COPD has been stable with Breo and use rescue inhaler few times a month. This is follow by pulmonology. Lipid panel will be order. On opiates for her lumbar spondylosis which controls the pain. Has iron deficiency anemia on ferrous sulfate and CBC will be repeated. Denies any active bleeding. Had colonoscopy 2022. Has been intentionally losing weight. [facility] Medical History Hospital discharge follow-up Diverticulitis Hypercalcemia History of smoking at least 1 pack per day for at least 30 years COPD (chronic obstructive pulmonary disease) Chronic constipation Nondiabetic gastroparesis GERD (gastroesophageal reflux disease) COVID-19 Dyslipidemia Mild asthma Lumbar spondylosis Surgical History History of esophagogastroduodenoscopy (EGD) Hx of colonoscopy Hyperhidrosis Family History Father Medical history unknown Mother Hypertension Diabetes High cholesterol Son Bipolar 1 disorder Anxiety Mental health disorder Social History Household Members: None Housing: Apartment Are you a primary career development counselor to a significant other at home: No Do you presently have visiting nurse or other home services: No Alcohol intake: current Alcohol intake frequency: a few times a month Alcohol type: beer Patient Tobacco Use Status: Current everyday Tobacco user Tobacco use type: Cigarette Cigarettes Per Day: 3 Years Smoked: 50 e-Cigarette/Vaping Use: Never Used Second Hand Smoke Exposure: No service: No Current occupational status: disabled Cognitive needs: No Hearing needs: No Vision needs: Yes Questionnaire Thrive Questionnaire Date Thrive assessed: 06/25/22 DELANEY-7 AMB Questionnaire DELANEY-7 Date DELANEY - 7 assessed: 06/25/22 Source: Developed by Drs. Yaya Larson, Colleen Torres, Lazarus Reynolds and colleagues, with an educational zulema from [employer]. Review of Systems Const All systems reviewed & are unremarkable except as noted in HPI and below Eyes Reports no additional complaints, Denies change in vision and Denies other visual disturbances Card Denies chest pain at rest, Denies chest pain with activity, Denies edema, Denies irregular heart rhythm, Denies claudication, Denies dyspnea, Denies dyspnea on exertion, Denies orthopnea, Denies paroxysmal nocturnal dyspnea and Denies slow heart rate Resp Denies cough, Denies dyspnea and Denies dyspnea on exertion GI Denies abdominal pain, Denies change in bowel habits, Denies excessive flatus, Denies nausea and Denies vomiting Denies urinary incontinence, Denies urinary hesitancy and Denies urinary urgency Musc Denies abnormal gait, Denies atrophy, Denies deformity and Denies limited range of motion Skin/Breast Denies bleeding lesions, Denies changing lesions and Denies rash Neuro Denies abnormal gait and Denies lack of coordination Physical exam (Primary Care) Vital Signs: Last Vital Signs BP 142/70 H 03/12/23 10:27 BMI result Body Mass Index 24.0 Tobacco/Smoking Status: Tobacco use Status Tobacco use date assessed 06/25/22 03/12/23 10:33 Patient Tobacco Use Status Current everyday Tobacco 03/12/23 10:33 Tobacco use type Cigarette 03/12/23 10:33 e-Cigarette/Vaping Use Never Used 03/12/23 10:33 Thrive Assessment: Date of Thrive Assessment Date Thrive assessed 06/25/22 03/12/23 10:33 Eyes General: appearance normal, both eyes and all related structures Eyelids: Yes eyelids normal Conjunctivae: conjunctivae normal Neck Neck: Yes normal visual inspection and Yes supple Resp Effort & Inspection: normal respiratory effort Auscultation: clear to auscultation bilaterally Cardio Jugular venous distension: no JVD Rate: regular rate Rhythm: regular rhythm Heart sounds: S1 normal heart sound present and S2 normal heart sound present Extrem General: Yes full ROM Assessment and Plan Assessment & Plan (1) Mixed hyperlipidemia: Code(s): E78.2 - Mixed hyperlipidemia Plan: Continue statins and fibrates. (2) Anemia: Code(s): D64.9 - Anemia, unspecified Plan: Continue ferrous sulfate. Repeat hemoglobin. (3) COPD (chronic obstructive pulmonary disease): Comment: THIS PATIENT HAS MODERATELY SEVERE OBSTRUCTIVE AIRWAY DISORDER WITH PARTIAL REVERSIBILITY. C/W ASTHMA/COPD OVERLAP SYNDROME, LAST PFT IN 2020 [place] : BREO 100-25 ONE INH DAILY Spiriva Respimat REPLACED BY INCRUSE ELLIPTA ONE INH DAILY . ALBUTEROL( Ventolin ) HFA 2 PUFFS Q 4-6 HRS ONLY PRN DEEP BREATHING EXERCISES EXPLAINED AND SHE SHOULD DO ABOUT 3 TIMES A DAY. Code(s): J44.9 - Chronic obstructive pulmonary disease, unspecified Plan: Continue Breo. Use rescue inhaler as needed. Follow-up with pulmonology. (4) Lumbar spondylosis: Code(s): M47.816 - Spondylosis without myelopathy or radiculopathy, lumbar region Plan: Continue opiates as needed. Orders: Orders IRON PROFILE 4 Months D64.9 - Anemia, unspecified Lipid Panel 4 Months E78.5 - Hyperlipidemia, unspecified Complete Blood Count Auto Diff 4 Months D64.9 - Anemia, unspecified Comprehensive Allen. Panel Fast 4 Months E78.2 - Mixed hyperlipidemia Coding Level of Care Code Est Pt Level 4 (49361) Diagnoses Mixed hyperlipidemia E78.2 Anemia D64.9 COPD (chronic obstructive pulmonary disease) J44.9 Lumbar spondylosis M47.816 Time Spent (min) 22
[2023-03-12 11:37] VITALS: BP 138/70
== END 2023-03-12 10:49 | disposition home or self-care (01) ==
PROVIDERS: PCP Internal Medicine; Visit Provider Internal Medicine
DX: E78.2 Mixed hyperlipidemia (principal); D64.9 Anemia, unspecified; J44.9 Chronic obstructive pulmonary disease, unspecified; M47.816 Spondylosis without myelopathy or radiculopathy, lumbar region
CPT/HCPCS: 99214

== ENCOUNTER 2023-04-28 09:46 | Outpatient (REF) | payer OTHER, SELFPAY | END 2023-04-28 09:47 | disposition home or self-care (01) | LOC: HO.MAMMO 09:46 | PROVIDERS: PCP Internal Medicine; Visit Provider Internal Medicine | DX: Z12.31 Encounter for screening mammogram for malignant neoplasm of breast (principal) | CPT/HCPCS: 77063; 77067 ==

== ENCOUNTER → 2023-04-28 10:45 | Outpatient (BNV) | payer OTHER, SELFPAY | PROVIDERS: PCP Internal Medicine; Visit Provider Radiology Diagnostic Radiology | DX: Z12.31 Encounter for screening mammogram for malignant neoplasm of breast (principal) | CPT/HCPCS: 77063; 77067 ==

== ENCOUNTER 2023-05-19 10:29 | Outpatient (AMB) | payer OTHER, SELFPAY ==
[2023-05-19 10:32] VITALS: BP 120/60; PULSE 90; O2SAT 97; BMI 24.7
--- NOTE | 2023-05-19 10:32 | MHC.OFFVIS ---
Intake Vital Signs 05/19/23 10:32 Height 4 ft 8 in Weight 110 lb BMI 24.7 BP 120/60 Blood Pressure Location Lt brachial Position Sitting Pulse 90 Pulse Source Pulse Oximeter Pulse Oximetry (%) 97 Oxygen Delivery Method Room Air Intake Visit Reasons: Dyspnea Intake Note: pt is here for follow up and states she feel okay no issues with breathing at this time. Compliance Representative Dealer Required: No Allergies aspirin Adverse Reaction (Unknown, Verified 05/19/23 10:58) stomach upset Medication List - Last Reconciled 05/19/23 by Tian Van MD acetaminophen ER (Tylenol Arthritis Pain) 650 mg PO Q8H PRN atorvastatin 40 mg PO DAILY Breo Ellipta 100-25 mcg/dose (fluticasone furoate-vilanterol) 1 ea PO DAILY NS docusate sodium (Colace) 200 mg (2 x 100 mg) PO BEDTIME fenofibrate 54 mg PO DAILY 90 days ferrous sulfate 325 mg PO DAILY 90 days oxycodone-acetaminophen 5-325 mg 1 tab PO TID PRN umeclidinium 62.5 mcg/actuation (Incruse Ellipta) 1 inh inhalation BEDTIME 30 days Ventolin HFA 90 mcg/actuation (albuterol sulfate) 2 puffs inhalation Q6H PRN 30 days NS Do you need a note to return to daycare/school/sports/work: No HPI Dyspnea HPI Details 68 YEARS OLD FEMALE IS A CASE OF CHRONIC OBSTRUCTIVE PULMONARY DISEASE AND COMES FOR 6 MONTHS FOLLOW-UP. CLAIMS THAT HER BREATHING HAS BEEN UNDER CONTROL AND STABLE. HOWEVER HER LAMA INHALER HAS BEEN CHANGED TO INCRUSE ELLIPTA, AND SHE DOES NOT LIKE ITS TASTE. SHE USES ALBUTEROL A RESCUE INHALER BUT ONLY ONCE IN A WHILE. THE MAIN ISSUE IS THAT SHE STILL SMOKES A FEW CIGARETTES EVERY DAY. SHE CLAIMS THAT IT IS THE HOUSEHOLD STRESS AND ANXIETY WHICH MAKES HER SMOKE. LUCKILY SHE HAS HAD NO ACUTE EXACERBATION IN THE LAST 6 MONTHS. [facility] Medical History Hospital discharge follow-up Diverticulitis Hypercalcemia History of smoking at least 1 pack per day for at least 30 years COPD (chronic obstructive pulmonary disease) Chronic constipation Nondiabetic gastroparesis GERD (gastroesophageal reflux disease) COVID-19 Dyslipidemia Mild asthma Lumbar spondylosis Surgical History History of esophagogastroduodenoscopy (EGD) Hx of colonoscopy Hyperhidrosis Family History Father Medical history unknown Mother Hypertension Diabetes High cholesterol Son Bipolar 1 disorder Anxiety Mental health disorder Social History Household Members: None Housing: Apartment Are you a primary rn coronary care unit to a significant other at home: No Do you presently have visiting nurse or other home services: No Alcohol intake: current Alcohol intake frequency: a few times a month Alcohol type: beer Patient Tobacco Use Status: Current everyday Tobacco user Tobacco use type: Cigarette Cigarettes Per Day: 3 Years Smoked: 50 e-Cigarette/Vaping Use: Never Used Second Hand Smoke Exposure: No service: No Current occupational status: disabled Cognitive needs: No Hearing needs: No Vision needs: Yes Review of Systems Const All systems reviewed & are unremarkable except as noted in HPI and below Eyes Reports no additional complaints ENT Reports no additional complaints Card Denies chest pain, Denies irregular heart rhythm, Denies leg edema and Reports dyspnea on exertion Resp Reports as per HPI and Reports dyspnea on exertion GI Reports constipation and Reports heartburn (CONTROLLED WITH OMEPRAZOLE) Reports no additional complaints Musc Reports back pain (FREQUENT BACK SPASM) Skin/Breast Reports system reviewed and no additional complaints, except as documented Neuro Reports no additional complaints Psych Reports no additional complaints Physical Exam Vital Signs: Last Vital Signs Pulse 90 05/19/23 10:32 BP 120/60 05/19/23 10:32 Pulse Ox 97 05/19/23 10:32 Oxygen Delivery Method Room Air 05/19/23 10:32 BMI result Body Mass Index 24.7 Const General: comfortable (But anxious), no acute distress, alert and awake Orientation/consciousness: patient oriented x3 HEENT Head: Yes normal to inspection General nose exam: No nasal polyps present and No nasal discharge present Face and sinus: Yes sinuses nontender Mouth: oropharynx normal Throat: Yes posterior oropharynx normal Eyes General: appearance normal, both eyes and all related structures Neck Neck: Yes normal visual inspection, Yes no lymphadenopathy, Yes trachea midline and Yes no JVD Thyroid: Thyroid normal Chest Chest palpation & inspection: normal inspection of the chest, normal palpation of entire chest wall and no tenderness Resp Other: Percussion note hyper-resonant, breath sounds are distant with prolonged expiratory phase. No wheezes or rhonchi are heard. Cardio Palpation: normal PMI Rate: regular rate Rhythm: regular rhythm Heart sounds: no gallops and no murmurs Peripheral pulses: Peripheral pulses 2+ throughout GI Palpation (GI): Soft to palpation, nontender, No hepatosplenomegaly present and no masses Auscultation: normal bowel sounds Back/Spine/Pelvis Thoracic/Lumbar Spine: thoracic and lumbar spine normal to inspection Skin General skin exam: no rashes or lesions noted Neuro General: patient oriented x3 and no focal motor deficits Cranial nerves: Yes CN's II-XII intact bilaterally Extrem General: Yes normal to inspection, Yes no clubbing, cyanosis or edema and Yes no calf tenderness Psych Appearance: grossly normal and well kempt Speech and movement: Normal speech and movement present Assessment & Plan Assessment & Plan (1) COPD (chronic obstructive pulmonary disease): Comment: THIS PATIENT HAS MODERATELY SEVERE OBSTRUCTIVE AIRWAY DISORDER WITH PARTIAL REVERSIBILITY. C/W ASTHMA/COPD OVERLAP SYNDROME, LAST PFT IN 2020 . LOST SPIROMETRY IN NOVEMBER 2022. .REMAINS VERY STABLE. Code(s): J44.9 - Chronic obstructive pulmonary disease, unspecified Plan: [place] : BREO 100-25 ONE INH DAILY Incruse Ellipta one inh daily ALBUTEROL( Ventolin ) HFA 2 PUFFS Q 4-6 HRS ONLY PRN (2) History of smoking at least 1 pack per day for at least 30 years: Comment: She has smoked about half pack of cigarettes a day for the last 30 years, QUIT in 2021 , But now resumed smoking 1-2 cigarettes daily ,Says , because of stress . Code(s): Z87.891 - Personal history of nicotine dependence Plan: Had a detailed discussion and advised to quit completely . Coding Level of Care Code Est Pt Level 3 (86821) Diagnoses COPD (chronic obstructive pulmonary disease) J44.9 History of smoking at least 1 pack per day for at least 30 years Z87.891
== END 2023-05-19 10:58 | disposition home or self-care (01) ==
PROVIDERS: PCP Internal Medicine; Visit Provider Internal Medicine
DX: J44.9 Chronic obstructive pulmonary disease, unspecified (principal); Z87.891 Personal history of nicotine dependence
CPT/HCPCS: 99213

== ENCOUNTER → 2023-05-19 10:29 | Outpatient (BNVA) | payer OTHER, SELFPAY | PROVIDERS: PCP Internal Medicine; Visit Provider Internal Medicine | DX: J44.9 Chronic obstructive pulmonary disease, unspecified (principal); Z87.891 Personal history of nicotine dependence | CPT/HCPCS: 99212 ==

== ENCOUNTER 2023-08-21 09:27 | Emergency (ER) | payer OTHER, SELFPAY ==
--- NOTE | ~2023-08-21 | XR_ITS ---
EXAMINATION: XR CHEST CLINICAL INFORMATION: Chest pain COMPARISON: 10/03/2022 TECHNIQUE: 2 views of the chest were obtained. FINDINGS: No significant abnormality is noted involving the heart, lungs, mediastinum, bony thorax or soft tissues. XR/XR chest 2V IMPRESSION: Unremarkable examination.
--- NOTE | 2023-08-21 09:29 | ECG_ITS ---
Test Reason : chest pain Blood Pressure : / mmHG Vent. Rate : 084 BPM Atrial Rate : 084 BPM P-R Int : 128 ms QRS Dur : 078 ms QT Int : 348 ms P-R-T Axes : 067 043 053 degrees QTc Int : 411 ms Normal sinus rhythm Normal ECG When compared with ECG of 03-OCT-2022 12:34, No significant change was found Referred By: Generic ED Physician Electronically Signed By:EMEKA HARVEY MD
[2023-08-21 09:39] VITALS: BP 136/108; PULSE 95; RESP 24; TEMP 36.8; O2SAT 97; BMI 22.9
[2023-08-21 09:56] LABS: MANUAL DIFF FLAG NO
[2023-08-21 09:57] LABS: Basophils Absolute Auto 0.1 X10*3/uL (0.0-0.2); Basophils Percent Auto 0.7 % (0-2); Eosinophils Absolute Auto 0.2 X10*3/uL (0.0-0.4); Eosinophils Percent Auto 1.6 % (0-4); Hematocrit 34.5 % (37.0-47.0); Imm Gran Abs Auto 0.02 X10*3/uL (0.00-0.03); Imm Gran Pct Auto 0.2 % (0.0-0.4); Lymphocytes Absolute Auto 3.3 X10*3/uL (1.2-4.9); Lymphocytes Percent Auto 28.7 % (20-40); Mean Corpuscular HGB Conc 34.8 g/dl (31.0-35.0); Mean Corpuscular Hemoglobin 31.9 pg (27.0-33.0); Mean Corpuscular Volume 91.8 fL (80.0-98.0); Mean Platelet Volume 9.1 fL (9.4-12.3); Monocytes Absolute Auto 0.6 X10*3/uL (0.1-1.2); Monocytes Percent Auto 5.6 % (2-11); Neutrophils Absolute Auto 7.3 x10*3/uL (2.0-8.3); Neutrophils Percent Auto 63.2 % (45-73); Platelet Count 488 X10*3/uL (160-400); Red Blood Count 3.76 X10*6/uL (4.20-5.50); Red Cell Distribution Width 13.5 % (11.0-16.0); White Blood Count 11.5 X10*3/uL (4.8-10.8)
[2023-08-21 10:09] LABS: Anion Gap 15 (12-20); Blood Urea Nitrogen 10 mg/dL (9-16); Calcium 9.7 mg/dL (8.4-10.2); Carbon Dioxide 26 mmol/L (22-29); Chloride 102 mmol/L (96-108); Creatinine Clr Calc Pharmacy 42.1; Estimated Glomerular Filt Rate > 60; Glucose Random 93 mg/dL (60-115); Potassium 4.2 mmol/L (3.3-5.1); Sodium 139 mmol/L (135-145)
[2023-08-21 10:16] LABS: B Type Natriuretic Peptide 16 pg/mL (<100)
[2023-08-21 10:20] LABS: Troponin-I High Sensitivity < 2.7 ng/L (<3.5-17.0)
[2023-08-21 10:34] LABS: Influenza A PCR NEGATIVE (Negative); Influenza B PCR NEGATIVE (Negative); Resp Syncy Virus RNA Qual PCR NEGATIVE (Negative); SARS COV2 PCR INHOUSE NEGATIVE (Negative)
--- NOTE | 2023-08-21 10:49 | ED_ITS ---
HPI - Chest Pain General Chief Complaint: Chest Pain Stated Complaint: Chest pain, SOB Time Seen by Provider: 08/21/23 10:28 Source: patient Mode of arrival: ambulatory History of Present Illness HPI narrative: 68-year-old female with history of COPD, everyday smoker, reports that somebody gave her a very tight hug approximately 3-4 days ago and now reports left anterior chest wall discomfort that is reproducible and worsens with deep inspiration. She denies any associated cough/fever/chills or recent travel. Related Data Home Medications ?Medication ?Instructions ?Recorded ?Confirmed acetaminophen 650 mg 650 mg PO Q8H PRN Pain 02/21/22 03/12/23 tablet,extended release (Tylenol Arthritis Pain) Previous Rx's ?Medication ?Instructions ?Recorded fenofibrate 54 mg tablet 54 mg PO DAILY 90 days #90 tabs 06/24/22 docusate sodium 100 mg capsule 200 mg (2 x 100 mg) PO BEDTIME #60 09/04/22 (Colace) caps umeclidinium 62.5 mcg/actuation 1 inh inhalation BEDTIME copd 30 11/18/22 blister powder for inhalation days #30 ea (Incruse Ellipta) ferrous sulfate 325 mg (65 mg 325 mg PO DAILY 90 days #90 tabs 04/25/23 iron) tablet Breo Ellipta 100 mcg-25 mcg/dose 1 ea PO DAILY #60 ea 06/04/23 powder for inhalation (fluticasone furoate-vilanterol) atorvastatin 40 mg tablet 40 mg PO DAILY #90 tabs 06/24/23 oxycodone-acetaminophen 5 mg-325 1 tab PO TID PRN pain #84 tabs 07/30/23 mg tablet Ventolin HFA 90 mcg/actuation 2 puff inhalation Q6H PRN 08/19/23 aerosol inhaler (albuterol sulfate) shortness of breath or wheezing 30 days #8 grams Allergies Allergy/AdvReac Type Severity Reaction Status Date / Time aspirin AdvReac Mild stomach Verified 08/21/23 09:41 upset Review of Systems 2 Review of Systems: Pertinent positives and negatives as stated in HPI PMFSH Past Medical History Source: nursing notes reviewed Medical History Hospital discharge follow-up Diverticulitis Hypercalcemia History of smoking at least 1 pack per day for at least 30 years COPD (chronic obstructive pulmonary disease) Chronic constipation Nondiabetic gastroparesis GERD (gastroesophageal reflux disease) COVID-19 Dyslipidemia Mild asthma Lumbar spondylosis Surgical History History of esophagogastroduodenoscopy (EGD) Hx of colonoscopy Hyperhidrosis Family History Family History Father Medical history unknown Mother Hypertension Diabetes High cholesterol Son Bipolar 1 disorder Anxiety Mental health disorder Social History Social History Household Members: None Housing: Apartment Are you a primary campground caretaker to a significant other at home: No Do you presently have visiting nurse or other home services: No Alcohol intake: current Alcohol intake frequency: a few times a month Alcohol type: beer Patient Tobacco Use Status: Current everyday Tobacco user Tobacco use type: Cigarette Cigarettes Per Day: 3 Years Smoked: 50 e-Cigarette/Vaping Use: Never Used Second Hand Smoke Exposure: No Advance Directives: No Advance Directives Information Provided: Yes service: No Current occupational status: disabled Cognitive needs: No Hearing needs: No Vision needs: Yes Physical Exam 2 Vital Signs: Vital Signs: Last Vital Signs Temp 98.3 F 08/21/23 09:39 Pulse 95 08/21/23 09:39 Resp 24 H 08/21/23 09:39 BP 136/108 H 08/21/23 09:39 Pulse Ox 97 08/21/23 09:39 O2 Del Method Room Air 08/21/23 09:39 BMI result Body Mass Index 22.9 VITAL SIGNS: Reviewed. GENERAL: Well developed, well nourished, in no acute distress. HEAD: Normocephalic/atraumatic EYES: PERRLA, EOMI EARS: Ext canals without abnormality NOSE: Nares patent bilateral OROPHARYNX: no oral lesions noted, posterior pharynx clear NECK: Supple, no adenopathy LUNGS: Normal breath sounds. No adventitious sounds or accessory muscle use. SpO2<97>; CHEST WALL: Reproducible tenderness to palpation at left anterior chest wall, no crepitus or deformity noted CARDIOVASCULAR: Regular rate and rhythm without noted murmurs, no JVD or lower extremity edema. ABDOMEN: Soft, non-tender, non-distended with bowel sounds. MUSCULOSKELETAL: No tenderness, deformities, or effusions noted on gross inspection. EXTREMITIES: No cyanosis, clubbing or edema. SKIN: Inspection of the skin reveals no rashes NEUROLOGIC: Alert and oriented x 4. Strength and sensation to light touch were grossly intact x 4. Medical Decision Making Medical Decision Making [facility] Narrative: 68-year-old female with history and clinical presentation, DDX: No concern for bronchitis/exacerbation of underlying chronic disease, pneumonia, ACS and suspect patient is experiencing musculoskeletal pain versus lung mass. I reviewed all investigations and hematologic indices significant for noninfectious leukocytosis/no anemia and a chronic elevated platelet count. Chemistry indices negative for REYNALDO/electrolyte derangements and high sensitivity troponin is undetectable with a BNP within normal limits. Viral testing negative for influenza/RSV/COVID-19. Chest x-ray negative for infiltrate or venous congestion otherwise my interpretation is in agreement with radiology's impression. EKG without acute findings. My interpretation is that patient is experiencing musculoskeletal pain/costochondritis, no clinical suspicion for infiltrate/rib injury. All results discussed with her at bedside. Differential Diagnosis Differential Diagnoses: The differential diagnosis associated with the presentation includes Please see the discussion above Admission/Observation Consideration of admission/observation: Escalation of care including admission/observation considered Please see the discussion above Lab Data [facility] Lab Attestation statement: I reviewed the patient's lab results. Please see the discussion above 08/21/23 09:51 08/21/23 09:51 Labs: Lab Results 08/21/23 Range/Units 09:51 WBC 11.5 H (4.8-10.8) X10*3/uL RBC 3.76 L (4.20-5.50) X10*6/uL Hgb 12.0 (12.0-16.0) g/dl Hct 34.5 L (37.0-47.0) % MCV 91.8 (80.0-98.0) fL MCH 31.9 (27.0-33.0) pg MCHC 34.8 (31.0-35.0) g/dl RDW 13.5 (11.0-16.0) % Plt Count 488 H (160-400) X10*3/uL MPV 9.1 L (9.4-12.3) fL Immature Gran % (Auto) 0.2 (0.0-0.4) % Neut % (Auto) 63.2 (45-73) % Lymph % (Auto) 28.7 (20-40) % Dubois % (Auto) 5.6 (2-11) % Eos % (Auto) 1.6 (0-4) % Baso % (Auto) 0.7 (0-2) % Lymph # (Auto) 3.3 (1.2-4.9) X10*3/uL Dubois # (Auto) 0.6 (0.1-1.2) X10*3/uL Eos # (Auto) 0.2 (0.0-0.4) X10*3/uL Baso # (Auto) 0.1 (0.0-0.2) X10*3/uL Abs Immat Gran (auto) 0.02 (0.00-0.03) X10*3/uL Absolute Neuts (auto) 7.3 (2.0-8.3) x10*3/uL Absolute Nucleated RBC 0.000 (0.0-0.012) X10*3/uL Nucleated RBC % (auto) 0.0 (0.0-0.2) /100WBC Sodium 139 (135-145) mmol/L Potassium 4.2 (3.3-5.1) mmol/L Chloride 102 (96-108) mmol/L Carbon Dioxide 26 (22-29) mmol/L Anion Gap 15 (12-20) BUN 10 (9-16) mg/dL Creatinine 0.79 (0.5-1.4) mg/dL Estim Creat Clear Calc 42.1 Estimated GFR > 60 Random Glucose 93 (60-115) mg/dL Calcium 9.7 (8.4-10.2) mg/dL Troponin I High Sens < 2.7 (<3.5-17.0) ng/L B-Natriuretic Peptide 16 (<100) pg/mL Influenza Type A (PCR) NEGATIVE (Negative) Influenza Type B (PCR) NEGATIVE (Negative) RSV RNA Qual (PCR) NEGATIVE (Negative) SARS-CoV-2 RNA (RT-PCR) NEGATIVE (Negative) Independent Interpretation I performed an independent interpretation of an: EKG Interpretation: Normal sinus rhythm, HR-84, no STEMI, ME/QRS/QTC is within normal limits. Radiology Impression Discussion of test interpretation with radiology: I have reviewed the radiologist's reading. Radiologist Impression: Please see the discussion above External Record Review External record reviewed: Outpatient record, Prior outpatient labs and Prior outpatient radiology Chronic Conditions COPD, everyday smoker Critical Care Time Critical Care Time Critical Care Time: Yes Total Critical Care Time: 45 Attestation: I personally attest to this time spent taking care of the patient. Discharge Plan Discharge Clinical Impression: Atypical chest pain, Chest wall pain, Acute costochondritis Patient Disposition: Home, Self-Care Instructions: Chest Wall Pain (ED), Costochondritis (ED) Additional Instructions: 1. Resume all home medications as prescribed. 2. Recommend [id number]-dyezopf Tylenol/ibuprofen for pain control, combined this with hxbf-rky-[id number] lidocaine patch for additional symptom relief. 3. Recommend follow-up with your primary care doctor by calling the office on Friday morning and setting up an appointment. Return to the ER for any worsening symptoms. Prescriptions: No Action fenofibrate 54 mg tablet 54 mg PO DAILY 90 Days Qty: 90 3RF docusate sodium [Colace] 100 mg capsule 200 mg PO BEDTIME Qty: 60 5RF ferrous sulfate 325 mg (65 mg iron) tablet 325 mg PO DAILY 90 Days Qty: 90 1RF Breo Ellipta 100-25 mcg/dose blister with device 1 ea PO DAILY Qty: 60 3RF atorvastatin 40 mg tablet 40 mg PO DAILY Qty: 90 0RF oxycodone-acetaminophen 5-325 mg tablet 1 tab PO TID PRN (Reason: pain) Qty: 84 0RF albuterol sulfate [Ventolin HFA] 90 mcg/actuation HFA aerosol inhaler 2 puff inhalation Q6H PRN (Reason: shortness of breath or wheezing) 30 Days Qty: 8 0RF acetaminophen [Tylenol Arthritis Pain] 650 mg Tablet Extended Release 650 mg PO Q8H PRN (Reason: Pain) Incruse Ellipta 62.5 mcg/actuation blister with device 1 inh inhalation BEDTIME 30 Days Qty: 30 5RF Referrals: Kaela Briceno MD [Primary Care Provider] - Print Language: Malay
[2023-08-21 12:12] VITALS: BP 125/50; PULSE 78; RESP 16; TEMP 36.6; O2SAT 95
[2023-08-21] MEDS: Lidocaine 4 % Patch ADH..PATCH 1 PATCH TRANSDERMA (12:18)
[2023-08-21] MEDS: Ibuprofen 400 MG TABLET PO (12:19)
[2023-08-21] MEDS: Acetaminophen 325 MG TABLET 975 MG PO (12:20)
[2023-08-21 12:23] VITALS: BP 125/50; PULSE 78; RESP 16; TEMP 36.6; O2SAT 95
== END 2023-08-21 12:24 | disposition home or self-care (01) ==
PROVIDERS: Emergency Provider Student in an Organized Health Care Education/Training Program; PCP Internal Medicine
DX: R07.89 Other chest pain (principal); M94.0 Chondrocostal junction syndrome [Tietze]; J44.9 Chronic obstructive pulmonary disease, unspecified; F17.210 Nicotine dependence, cigarettes, uncomplicated; Z03.818 Encounter for observation for suspected exposure to other biological agents ruled out
CPT/HCPCS: 0241U; 71046; 80048; 83880; 84484; 85025; 93005; 99283; 99284

== ENCOUNTER → 2023-08-21 09:29 | Outpatient (BNV) | payer OTHER, SELFPAY | PROVIDERS: Emergency Provider Student in an Organized Health Care Education/Training Program; PCP Internal Medicine; Visit Provider Internal Medicine Cardiovascular Disease | DX: R07.9 Chest pain, unspecified (principal) | CPT/HCPCS: 93010 ==

== ENCOUNTER 2023-09-17 09:28 | Outpatient (AMB) | payer MEDICARE, SELFPAY ==
--- NOTE | 2023-09-17 09:33 | MHC.PC.OV ---
Vital Signs 09/17/23 09:35 09/17/23 09:52 Height 4 ft 8.3 in Weight 103 lb BMI 22.8 BP 160/68 H 150/70 H Blood Pressure Location Lt brachial Lt brachial Position Sitting Sitting Intake Visit Reasons: Annual exam Intake Note: Patient here for a physical exam Admissions Advisor Required: No Accompanied by: Self / Same As Patient Allergies aspirin Adverse Reaction (Mild, Verified 09/17/23 09:46) stomach upset Medication List - Last Reconciled 09/17/23 by Kaela Levine MD acetaminophen ER (Tylenol Arthritis Pain) 650 mg PO Q8H PRN atorvastatin 40 mg PO DAILY Breo Ellipta 100-25 mcg/dose (fluticasone furoate-vilanterol) 1 ea PO DAILY NS docusate sodium (Colace) 200 mg (2 x 100 mg) PO BEDTIME fenofibrate 54 mg PO DAILY 90 days ferrous sulfate 325 mg PO DAILY 90 days oxycodone-acetaminophen 5-325 mg 1 tab PO TID PRN umeclidinium 62.5 mcg/actuation (Incruse Ellipta) 1 inh inhalation BEDTIME 30 days Ventolin HFA 90 mcg/actuation (albuterol sulfate) 2 puffs inhalation Q6H PRN 30 days NS Tobacco use date assessed: 09/17/23 Fall risk assessment: No Falls in past year Last assessed Fall Risk: 09/17/23 Dental Screening Dental Screen Date: 09/17/23 Did you have a dental visit in the last 12 months?: Yes Did you have a dental problem in the last 6 months where you did not have access to dental care?: No Was dental information given to patient?: Patient has dentist HPI HPI Comments History of Present Illness Details This is a 68-year-old female with minimal major depression and COPD that comes for her physical exam. Last mammogram was 04/26/2023. Last colonoscopy was 2022. She has minimal major depression that does not recurrent medication but follow-up visit was requested. Has COPD follow by pulmonology and use rescue inhaler once a month. Having some hearing loss and will be referred to a hearing test. Labs were ordered. [facility] Medical History (Updated 09/17/23 @ 10:07 by Kaela Levine MD) Hospital discharge follow-up Diverticulitis Hypercalcemia History of smoking at least 1 pack per day for at least 30 years COPD (chronic obstructive pulmonary disease) Chronic constipation Nondiabetic gastroparesis GERD (gastroesophageal reflux disease) COVID-19 Dyslipidemia Mild asthma Lumbar spondylosis Surgical History History of esophagogastroduodenoscopy (EGD) Hx of colonoscopy Hyperhidrosis Family History (Updated 09/17/23 @ 09:52 by Kaela Levine MD) Father Alcoholism Mother Hypertension Diabetes High cholesterol Son Bipolar 1 disorder Anxiety Mental health disorder Social History Household Members: None Housing: Apartment Are you a primary senior caregiver to a significant other at home: No Do you presently have visiting nurse or other home services: No Alcohol intake: current Alcohol intake frequency: a few times a month Alcohol type: beer Patient Tobacco Use Status: Current everyday Tobacco user Tobacco use type: Cigarette Cigarettes Per Day: 3 Years Smoked: 50 e-Cigarette/Vaping Use: Never Used Second Hand Smoke Exposure: No service: No Current occupational status: disabled Cognitive needs: No Hearing needs: No Vision needs: Yes Questionnaire PHQ-9 Over the last 2 weeks, how often have you been bothered by any of the following problems? 1. Little interest or pleasure in doing things: not at all 2. Feeling down, depressed, or hopeless: several days 3. Trouble falling or staying asleep, or sleeping too much: not at all 4. Feeling tired or having little energy: not at all 5. Poor appetite or overeating: not at all 6. Feeling bad about yourself - or that you are a failure or have let yourself or your family down: not at all 7. Trouble concentrating on things, such as reading the newspaper or watching television: not at all 8. Moving or speaking so slowly that other people could have noticed. Or the opposite - being so fidgety or restless that you have been moving around a lot more than usual: not at all 9. Thoughts that you would be better off or of hurting yourself in some way: not at all Total score: 1 Depression Screening Interpretation: Positive Depression Screening Follow-up: Existing condition and Follow-up Visit Requested Depression Screening Done: Yes 01154 - PHQ-9 Billing: Yes Source: Developed by Drs. Yaya Larson, Colleen Torres, Lazarus Reynolds and colleagues, with an educational zulema from [employer]. Thrive Questionnaire Date Thrive assessed: 09/17/23 I am a: Patient What is your living situation today?: I have a steady place to live Within the past 12 months, did the food you bought not last and you didn't have the money to get more?: Never true Within the past 12 months, did you worry whether your food would run out before you got money to buy more?: Never true Do you have trouble paying for medicines?: No Do you have trouble getting transportation to medical appointments?: No Do you have trouble paying your heating and electricity bill?: No Do you have trouble taking care of your child, family member or friend?: No Do you have trouble with day-to-day activities such as bathing, preparing meals, shopping, managing finances, etc.?: No Are you currently unemployed and looking for a job?: No Are you interested in more education?: No Please select the resources that you would like help with: None Currently or been in a relationship where the following occur: no concerns reported THRIVE Score: 0 AUDIT C Alcohol Use Questionnaire (AUDIT-C) 1. How often do you have a drink containing alcohol?: Monthly or less 2. How many drinks containing alcohol do you have on a typical day when you are drinking?: 1 or 2 3. How often do you have six or more drinks on one occasion?: Never Total Score: 1 Score Reviewed/Action Taken: No DELANEY-7 AMB Questionnaire DELANEY-7 Date DELANEY - 7 assessed: 09/17/23 Feeling nervous, anxious, or on edge: 1 = Several days Not being able to stop or control worryin = Not at all Worrying too much about different things: 1 = Several days Trouble relaxin = Not at all Being so restless that it is hard to sit still: 0 = Not at all Becoming easily annoyed or irritable: 1 = Several days Feeling afraid as if something awful might happen: 0 = Not at all Total DELANEY-7 score (0-4 normal; 5-9 mild; 10-14 moderate; 15-21 severe): 3 Source: Developed by Drs. Yaya Larson, Colleen Torres, Lazarus Reynolds and colleagues, with an educational zulema from [employer]. DELANEY-7 Assessment Billing DELANEY-7 Assessment Tool: DELANEY-7 Assessment 82144 Review of Systems Const All systems reviewed & are unremarkable except as noted in HPI and below ENT Reports hearing loss Card Denies chest pain at rest, Denies chest pain with activity, Denies edema, Denies irregular heart rhythm, Denies claudication, Denies dyspnea, Denies dyspnea on exertion, Denies orthopnea, Denies paroxysmal nocturnal dyspnea and Denies slow heart rate Resp Denies cough, Denies dyspnea and Denies dyspnea on exertion GI Reports constipation Musc Reports back pain Physical exam (Primary Care) Vital Signs: Last Vital Signs BP 160/68 H 09/17/23 09:35 Care Plan Goal for BP management: Recheck blood pressure with nurse navigator in 3 weeks. BMI result Body Mass Index 22.8 Tobacco/Smoking Status: Tobacco use Status Tobacco use date assessed 09/17/23 09/17/23 09:40 Patient Tobacco Use Status Current everyday Tobacco 09/17/23 09:40 Tobacco use type Cigarette 09/17/23 09:40 e-Cigarette/Vaping Use Never Used 09/17/23 09:40 Are you ready to quit: No Tobacco cessation counseling provided: No PHQ-9: PHQ-9 Score PHQ-9: Total score 1 09/17/23 09:40 Depression Screening Interpretation: Positive Depression Screening Follow-up: Existing condition and Follow-up Visit Requested Thrive Assessment: Date of Thrive Assessment Date Thrive assessed 09/17/23 09/17/23 09:40 Currently or been in a relationship where the following occur: no concerns reported Const Orientation/consciousness: patient oriented x3 HENMT Head: Yes normal to inspection, Yes normocephalic and Yes atraumatic Ears: external ears normal Eyes General: appearance normal, both eyes and all related structures Eyelids: Yes eyelids normal Conjunctivae: conjunctivae normal Neck Neck: Yes normal visual inspection and Yes supple Resp Effort & Inspection: normal respiratory effort Auscultation: clear to auscultation bilaterally Cardio Jugular venous distension: no JVD Rate: regular rate Rhythm: regular rhythm Heart sounds: S1 normal heart sound present and S2 normal heart sound present GI Inspection: Yes normal to inspection Palpation (GI): Soft to palpation and nontender Auscultation: normal bowel sounds Skin General skin exam: no rashes or lesions noted Neuro General: patient oriented x3 and no focal motor deficits Extrem General: Yes full ROM Psych Appearance: grossly normal Assessment and Plan Assessment & Plan (1) Physical exam: Code(s): Z00.00 - Encounter for general adult medical examination without abnormal findings Plan: Repeat in a year. (2) COPD (chronic obstructive pulmonary disease): Comment: THIS PATIENT HAS MODERATELY SEVERE OBSTRUCTIVE AIRWAY DISORDER WITH PARTIAL REVERSIBILITY. C/W ASTHMA/COPD OVERLAP SYNDROME, LAST PFT IN 2020 . LOST SPIROMETRY IN NOVEMBER 2022. .REMAINS VERY STABLE. Code(s): J44.9 - Chronic obstructive pulmonary disease, unspecified Qualifiers: COPD type: unspecified COPD Qualified Code(s): J44.9 - Chronic obstructive pulmonary disease, unspecified Plan: Continue Breo. Use rescue inhaler as needed. (3) Minimal recurrent major depressive disorder: Code(s): F33.9 - Major depressive disorder, recurrent, unspecified Plan: Follow-up visit requested. Orders: Orders Complete Blood Count Auto Diff Today D64.9 - Anemia, unspecified IRON PROFILE Today D64.9 - Anemia, unspecified Lipid Panel Today E78.5 - Hyperlipidemia, unspecified Vitamin D 25-OH Total Today E55.9 - Vitamin D deficiency, unspecified Comprehensive [place]. Panel Fast Today E78.2 - Mixed hyperlipidemia XR DEXA axial skeleton 5 Months N95.9 - Unspecified menopausal and perimenopausal disorder Referrals Speech and Hearing Referral H91.90 - Unspecified hearing loss, unspecified ear Medications: New lactulose 10 grams (15 mL) PO BEDTIME 30 days PRN 946 mL 0RF constipation Coding Level of Care Code Est Pt Prev Care >65y(30528) Diagnoses Physical exam Z00.00 Chronic obstructive pulmonary disease, unspecified COPD type J44.9 COPD type: unspecified COPD Minimal recurrent major depressive disorder F33.9 Additional Codes DELANEY-7 Assessment Billing - DELANEY-7 Assessment Tool: DELANEY-7 Assessment 67904 ([id number]) Time Spent (min) 32
[2023-09-17 09:35] VITALS: BP 160/68; BMI 22.8
[2023-09-17 09:52] VITALS: BP 150/70
== END 2023-09-17 10:08 | disposition home or self-care (01) ==
PROVIDERS: PCP Internal Medicine; Visit Provider Internal Medicine
DX: J44.9 Chronic obstructive pulmonary disease, unspecified (principal); F33.9 Major depressive disorder, recurrent, unspecified
CPT/HCPCS: 99214

== ENCOUNTER 2023-11-17 09:32 | Outpatient (AMB) | payer OTHER, SELFPAY ==
--- NOTE | 2023-11-17 10:23 | MHC.OFFVIS ---
Vital Signs 11/17/23 10:24 Height 4 ft 8.3 in Weight 103 lb 0.62 oz BMI 22.9 BP 130/58 L Blood Pressure Location Lt brachial Position Sitting Pulse 105 H Pulse Source Pulse Oximeter Pulse Oximetry (%) 97 Oxygen Delivery Method Room Air Intake Visit Reasons: Dyspnea Intake Note: pt is here for follow up and states she is feeling okay, breathing is good, and she walks many steps a day. pt has not been receiving Incruse. 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 Allergies aspirin Adverse Reaction (Mild, Verified 11/17/23 10:43) stomach upset Medication List - Last Reconciled 11/17/23 by Tian Van MD acetaminophen ER (Tylenol Arthritis Pain) 650 mg PO Q8H PRN atorvastatin 40 mg PO DAILY Breo Ellipta 100-25 mcg/dose (fluticasone furoate-vilanterol) 1 ea PO DAILY NS docusate sodium 200 mg (2 x 100 mg) PO BEDTIME fenofibrate 54 mg PO DAILY 90 days ferrous sulfate 325 mg PO DAILY 90 days lactulose 10 grams (15 mL) PO BEDTIME PRN 30 days oxycodone-acetaminophen 5-325 mg 1 tab PO TID PRN umeclidinium 62.5 mcg/actuation (Incruse Ellipta) 1 inh inhalation BEDTIME 30 days Ventolin HFA 90 mcg/actuation (albuterol sulfate) 2 puffs inhalation Q6H PRN 30 days NS Do you need a note to return to daycare/school/sports/work: No HPI HPI Dyspnea: Details: THIS 68 YEARS OLD FEMALE IS HERE FOR FOLLOW-UP AFTER 6 MONTHS. SHE IS SMOKING ABOUT 1-3 CIGARETTES A DAY. HAS ONLY MINIMAL INTERMITTENT. COUGH MAINLY RELATED TO SMOKING SHE HAS NO WHEEZING ATTACKS. GETS SHORT OF BREATH ONLY IF SHE WALKS. UP HILL OR CLIMBS STAIRS SHE REMAINS VERY ACTIVE AND IS WALKING A FEW MILES EVERY DAY. LUCKILY SHE HAS HAD NO RESPIRATORY INFECTION IN THE LAST 6 MONTHS [facility] Medical History Hospital discharge follow-up Diverticulitis Hypercalcemia History of smoking at least 1 pack per day for at least 30 years COPD (chronic obstructive pulmonary disease) Chronic constipation Nondiabetic gastroparesis GERD (gastroesophageal reflux disease) COVID-19 Dyslipidemia Mild asthma Lumbar spondylosis Surgical History History of esophagogastroduodenoscopy (EGD) Hx of colonoscopy Hyperhidrosis Family History Father Alcoholism Mother Hypertension Diabetes High cholesterol Son Bipolar 1 disorder Anxiety Mental health disorder Social History Household Members: None Housing: Apartment Are you a primary transitional care manager to a significant other at home: No Do you presently have visiting nurse or other home services: No Alcohol intake: current Alcohol intake frequency: a few times a month Alcohol type: beer Patient Tobacco Use Status: Current everyday Tobacco user Tobacco use type: Cigarette Cigarettes Per Day: 3 Years Smoked: 50 e-Cigarette/Vaping Use: Never Used Second Hand Smoke Exposure: No service: No Current occupational status: disabled Cognitive needs: No Hearing needs: No Vision needs: Yes Review of Systems Const All systems reviewed & are unremarkable except as noted in HPI and below Eyes Reports no additional complaints ENT Reports no additional complaints Card Denies chest pain, Denies irregular heart rhythm, Denies leg edema and Reports dyspnea on exertion Resp Reports as per HPI and Reports dyspnea on exertion GI Reports constipation and Reports heartburn (CONTROLLED WITH OMEPRAZOLE) Reports no additional complaints Musc Reports back pain (FREQUENT BACK SPASM) Skin/Breast Reports system reviewed and no additional complaints, except as documented Neuro Reports no additional complaints Psych Reports no additional complaints Physical Exam Vital Signs: Last Vital Signs Pulse 105 H 11/17/23 10:24 BP 130/58 L 11/17/23 10:24 Pulse Ox 97 11/17/23 10:24 Oxygen Delivery Method Room Air 11/17/23 10:24 BMI result Body Mass Index 22.9 Const General: comfortable (But anxious), no acute distress, alert and awake Orientation/consciousness: patient oriented x3 HEENT Head: Yes normal to inspection General nose exam: No nasal polyps present and No nasal discharge present Face and sinus: Yes sinuses nontender Mouth: oropharynx normal Throat: Yes posterior oropharynx normal Eyes General: appearance normal, both eyes and all related structures Neck Neck: Yes normal visual inspection, Yes no lymphadenopathy, Yes trachea midline and Yes no JVD Thyroid: Thyroid normal Chest Chest palpation & inspection: normal inspection of the chest, normal palpation of entire chest wall and no tenderness Resp Other: Percussion note hyper-resonant, breath sounds are distant with prolonged expiratory phase. No wheezes or rhonchi are heard. Cardio Palpation: normal PMI Rate: regular rate Rhythm: regular rhythm Heart sounds: no gallops and no murmurs Peripheral pulses: Peripheral pulses 2+ throughout GI Palpation (GI): Soft to palpation, nontender, No hepatosplenomegaly present and no masses Auscultation: normal bowel sounds Back/Spine/Pelvis Thoracic/Lumbar Spine: Thoracic/lumbar scoliosis (MODERATE ) Skin General skin exam: no rashes or lesions noted Neuro General: patient oriented x3 and no focal motor deficits Cranial nerves: Yes CN's II-XII intact bilaterally Extrem General: Yes normal to inspection, Yes no clubbing, cyanosis or edema and Yes no calf tenderness Psych Appearance: grossly normal and well kempt Speech and movement: Normal speech and movement present Assessment & Plan Assessment & Plan (1) COPD (chronic obstructive pulmonary disease): Comment: THIS PATIENT HAS MODERATELY SEVERE OBSTRUCTIVE AIRWAY DISORDER WITH PARTIAL REVERSIBILITY. C/W ASTHMA/COPD OVERLAP SYNDROME, LAST PFT IN 2020 . LOST SPIROMETRY IN NOVEMBER 2022. .REMAINS VERY STABLE. Code(s): J44.9 - Chronic obstructive pulmonary disease, unspecified Category: Medical Qualifiers: COPD type: unspecified COPD Qualified Code(s): J44.9 - Chronic obstructive pulmonary disease, unspecified Plan: CONTINUE BREO ELLIPTA 100-25 1 INHALATION DAILY CONTINUE INCRUSE ELLIPTA 1 INHALATION DAILY. VENTOLIN HFA 2 PUFFS Q. 6 HOURS ONLY P.R.N. (2) History of smoking at least 1 pack per day for at least 30 years: Comment: She has smoked about half pack of cigarettes a day for the last 30 years, QUIT in 2021 , But now resumed smoking 1-2 cigarettes daily ,Says , because of stress . Code(s): Z87.891 - Personal history of nicotine dependence Category: Social Hx Plan: COUNSELED TO QUIT SMOKING COMPLETELY, BUT SHE. MAY NOT DO IT Coding Level of Care Code Est Pt Level 3 (89676) Diagnoses Chronic obstructive pulmonary disease, unspecified COPD type J44.9 COPD type: unspecified COPD History of smoking at least 1 pack per day for at least 30 years Z87.891
[2023-11-17 10:24] VITALS: BP 130/58; PULSE 105; O2SAT 97; BMI 22.9
== END 2023-11-17 10:43 | disposition home or self-care (01) ==
PROVIDERS: PCP Internal Medicine; Visit Provider Internal Medicine
DX: J44.9 Chronic obstructive pulmonary disease, unspecified (principal); Z87.891 Personal history of nicotine dependence
CPT/HCPCS: 99213

== ENCOUNTER → 2023-11-17 09:32 | Outpatient (BNVA) | payer OTHER, SELFPAY | PROVIDERS: PCP Internal Medicine; Visit Provider Internal Medicine | DX: J44.9 Chronic obstructive pulmonary disease, unspecified (principal); F17.210 Nicotine dependence, cigarettes, uncomplicated | CPT/HCPCS: 99212 ==

== ENCOUNTER 2023-12-16 10:41 | Outpatient (REF) | payer OTHER, SELFPAY | END 2023-12-16 10:42 | disposition home or self-care (01) | LOC: HO.SH 10:41 | PROVIDERS: Visit Provider Internal Medicine | DX: Z01.118 Encounter for examination of ears and hearing with other abnormal findings (principal); H90.3 Sensorineural hearing loss, bilateral | CPT/HCPCS: 92557; 92567 ==

== ENCOUNTER 2024-03-22 09:26 | Outpatient (AMB) | payer OTHER, SELFPAY ==
--- NOTE | 2024-03-22 09:34 | MHC.PC.OV ---
Vital Signs 03/22/24 09:35 Height 4 ft 8.3 in Weight 103 lb BMI 22.8 BP 142/70 H Blood Pressure Location Lt brachial Position Sitting Intake Visit Reasons: bp,depression Intake Note: Patient here for a follow up BP, depression Installation Tech Required: No Accompanied by: Self / Same As Patient Allergies aspirin Adverse Reaction (Mild, Verified 03/22/24 10:02) stomach upset Medication List - Last Reconciled 03/22/24 by Kaela Levine MD acetaminophen ER (Tylenol Arthritis Pain) 650 mg PO Q8H PRN atorvastatin 40 mg PO DAILY Breo Ellipta 100-25 mcg/dose (fluticasone furoate-vilanterol) 1 ea PO DAILY NS docusate sodium 200 mg (2 x 100 mg) PO BEDTIME fenofibrate 54 mg PO DAILY 90 days ferrous sulfate 325 mg PO DAILY 90 days lactulose 10 grams (15 mL) PO BEDTIME PRN 30 days oxycodone-acetaminophen 5-325 mg 1 tab PO TID PRN umeclidinium 62.5 mcg/actuation (Incruse Ellipta) 1 inh inhalation BEDTIME 30 days Ventolin HFA 90 mcg/actuation (albuterol sulfate) 2 puffs inhalation Q6H PRN 30 days NS Tobacco use date assessed: 09/17/23 Fall risk assessment: No Falls in past year Last assessed Fall Risk: 03/22/24 Dental Screening Dental Screen Date: 03/22/24 Did you have a dental visit in the last 12 months?: No Did you have a dental problem in the last 6 months where you did not have access to dental care?: No Was dental information given to patient?: Patient has dentist HPI HPI Comments History of Present Illness Details The patient is a 68-year-old female presenting with follow-up of chronic conditions and new onset neck pain. She has a history of Chronic Obstructive Pulmonary Disease (COPD), managed with multiple inhalers, although she reports an issue obtaining the inhaler for nighttime use. The patient quit smoking a few weeks ago. She experiences chronic back pain, for which she uses Percocet as needed. Additionally, the patient has a long-standing history of constipation, for which she uses lactulose with reported efficacy, although she notes previous ineffective treatment with docusate. The patient manages hypercholesterolemia with atorvastatin 40 mg and hypertriglyceridemia with fenofibrate 54 mg. She reports anemia being treated with ferrous sulfate and will undergo blood work for hemoglobin re-evaluation. The patient's neck pain started after receiving flu and COVID shots, manifesting as stiffness and pain on turning the head, suggesting a potential muscular issue. [facility] Medical History Hospital discharge follow-up Diverticulitis Hypercalcemia History of smoking at least 1 pack per day for at least 30 years COPD (chronic obstructive pulmonary disease) Chronic constipation Nondiabetic gastroparesis GERD (gastroesophageal reflux disease) COVID-19 Dyslipidemia Mild asthma Lumbar spondylosis Surgical History History of esophagogastroduodenoscopy (EGD) Hx of colonoscopy Hyperhidrosis Family History Father Alcoholism Mother Hypertension Diabetes High cholesterol Son Bipolar 1 disorder Anxiety Mental health disorder Social History (Updated 03/22/24 @ 10:07 by Kaela Levine MD) Household Members: None Housing: Apartment Are you a primary day care supervisor to a significant other at home: No Do you presently have visiting nurse or other home services: No Alcohol intake: current Alcohol intake frequency: a few times a week Alcohol type: beer and other Patient Tobacco Use Status: Former Tobacco user Tobacco use type: Cigarette Cigarettes Per Day: 3 Years Smoked: 50 Packs per year/per ci.50 e-Cigarette/Vaping Use: Never Used Second Hand Smoke Exposure: No service: No Current occupational status: disabled Cognitive needs: No Hearing needs: No Vision needs: Yes Questionnaire Thrive Questionnaire Date Thrive assessed: 09/17/23 DELANEY-7 AMB Questionnaire DELANEY-7 Date DELANEY - 7 assessed: 09/17/23 Source: Developed by Drs. Yaya Larson, Colleen Torres, Lazarus Reynolds and colleagues, with an educational zulema from [employer]. Review of Systems Const Details: - Neurological: Denies craving for smoking. - Musculoskeletal: Reports stiffness and pain in neck when turning, suggesting possible muscle spasm. - Respiratory: Denies shortness of breath and chest pain. - Gastrointestinal: Reports constipation. Physical exam (Primary Care) Vital Signs: Last Vital Signs BP 142/70 H 03/22/24 09:35 BMI result Body Mass Index 22.8 Tobacco/Smoking Status: Tobacco use Status Tobacco use date assessed 09/17/23 03/22/24 09:42 Patient Tobacco Use Status Former Tobacco user 03/22/24 10:07 Tobacco use type Cigarette 03/22/24 10:07 e-Cigarette/Vaping Use Never Used 03/22/24 10:07 Thrive Assessment: Date of Thrive Assessment Date Thrive assessed 09/17/23 03/22/24 09:42 Const Other: General: No confusion Neck: Normal visual inspection and Yes supple, but patient reports neck pain, possibly due to muscle spasm Respiratory: Normal respiratory effort, clear to auscultation bilaterally Cardiovascular: No jugular venous distension, regular rate, regular rhythm, S1 normal heart sound present and S2 normal heart sound present Neurology: Patient oriented x3, no focal motor deficits and No confusion Extremities: Full ROM Psychology: Grossly normal Coding Level of Care Code Est Pt Level 4 (65851) Complex EM visit Add On G2211 Diagnoses Mixed hyperlipidemia E78.2 Chronic obstructive pulmonary disease, unspecified COPD type J44.9 COPD type: unspecified COPD Chronic constipation K59.09 Lumbar spondylosis M47.816 Time Spent (min) 22 Assessment & Plan Assessment & Plan (1) Mixed hyperlipidemia: Code(s): E78.2 - Mixed hyperlipidemia Category: Medical (2) COPD (chronic obstructive pulmonary disease): Comment: THIS PATIENT HAS MODERATELY SEVERE OBSTRUCTIVE AIRWAY DISORDER WITH PARTIAL REVERSIBILITY. C/W ASTHMA/COPD OVERLAP SYNDROME, LAST PFT IN 2020 . LOST SPIROMETRY IN NOVEMBER 2022. .REMAINS VERY STABLE. Code(s): J44.9 - Chronic obstructive pulmonary disease, unspecified Category: Medical Qualifiers: COPD type: unspecified COPD Qualified Code(s): J44.9 - Chronic obstructive pulmonary disease, unspecified (3) Chronic constipation: Comment: Colace 200, MiraLax [id number]-fiber diet Code(s): K59.09 - Other constipation Category: Medical (4) Lumbar spondylosis: Code(s): M47.816 - Spondylosis without myelopathy or radiculopathy, lumbar region Category: Medical Plan - Manage COPD by ensuring completion of all inhaler prescriptions, checking insurance approval for nighttime inhaler. - Address hypercholesterolemia and hypertriglyceridemia with continued use of atorvastatin and fenofibrate, paired with scheduled blood work this week for lipid profile evaluation. - Continue anemia management with ferrous sulfate and scheduled testing for hemoglobin levels. - Prescribe lactulose for ongoing management of constipation due to prior success with this treatment. - Provide a muscle relaxant for the acute neck pain, instructing dosing at night to accommodate sedative effects. - Advise cessation of aspirin to prevent allergic reactions causing stomach upset. Patient was informed and verbally consented to the use of an ambient scribe for clinic note documentation during this visit. I discussed with the patient the necessity of updating her blood work, including cholesterol, triglycerides, and hemoglobin, to assess current levels and treatment efficacy. We reviewed the importance of adhering to prescribed medications for hypercholesterolemia and hypertriglyceridemia, and I ensured the patient understood how to use lactulose as needed for constipation relief. I addressed her acute neck pain by providing a muscle relaxant, explaining potential drowsiness and recommending nighttime administration. We discussed the decision to withhold aspirin due to allergy and gastric side effects. Follow-up with pulmonology was confirmed. Orders: Orders Complete Blood Count Auto Diff Today D64.9 - Anemia, unspecified IRON PROFILE Today D64.9 - Anemia, unspecified Comprehensive [place]. Panel Fast Today E78.2 - Mixed hyperlipidemia Lipid Panel Today E78.5 - Hyperlipidemia, unspecified Medications: New cyclobenzaprine 10 mg PO BEDTIME PRN 7 tabs 0RF muscle spasm 7 days Refilled lactulose 10 grams (15 mL) PO BEDTIME PRN 946 mL 0RF constipation 30 days Discontinued docusate sodium Discontinued Reason: Patient Completed Course 200 mg (2 x 100 mg) PO BEDTIME 60 caps 5RF Patient Instructions: - Take muscle relaxant for neck pain at night due to drowsiness effects. - Use lactulose as needed for constipation. - Complete an 8-hour fasting blood test for cholesterol, triglycerides, and hemoglobin this week. - Continue prescribed medications for COPD, hypercholesterolemia, and hypertriglyceridemia. - Avoid aspirin due to known allergy. - Reach out with any issues obtaining nighttime inhaler through insurance. 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 - Avoid smoking and maintain alcohol intake at a social level only.
[2024-03-22 09:35] VITALS: BP 142/70; BMI 22.8
== END 2024-03-22 10:11 | disposition home or self-care (01) ==
PROVIDERS: PCP Internal Medicine; Visit Provider Internal Medicine
DX: E78.2 Mixed hyperlipidemia (principal); J44.9 Chronic obstructive pulmonary disease, unspecified; K59.09 Other constipation; M47.816 Spondylosis without myelopathy or radiculopathy, lumbar region

== ENCOUNTER → 2024-03-22 09:26 | Outpatient (BNVA) | payer OTHER, SELFPAY | PROVIDERS: PCP Internal Medicine; Visit Provider Internal Medicine | DX: E78.2 Mixed hyperlipidemia (principal); J44.9 Chronic obstructive pulmonary disease, unspecified; K59.09 Other constipation; M47.816 Spondylosis without myelopathy or radiculopathy, lumbar region | CPT/HCPCS: 99212 ==

== ENCOUNTER 2024-05-04 12:26 | Outpatient (REF) | payer OTHER, SELFPAY | END 2024-05-04 12:27 | disposition home or self-care (01) | LOC: HO.MAMMO 12:26 | PROVIDERS: PCP Internal Medicine; Visit Provider Internal Medicine | DX: Z12.31 Encounter for screening mammogram for malignant neoplasm of breast (principal) | CPT/HCPCS: 77063; 77067 ==

== ENCOUNTER → 2024-05-04 13:30 | Outpatient (BNV) | payer OTHER, SELFPAY | PROVIDERS: PCP Internal Medicine; Visit Provider Internal Medicine | DX: Z12.31 Encounter for screening mammogram for malignant neoplasm of breast (principal) | CPT/HCPCS: 77063; 77067 ==

== ENCOUNTER 2024-05-19 09:40 | Outpatient (AMB) | payer OTHER, SELFPAY ==
--- NOTE | 2024-05-19 09:56 | MHC.OFFVIS ---
Vital Signs 05/19/24 09:57 Height 4 ft 8.3 in Weight 117 lb 15.157 oz BMI 26.2 BP 112/50 L Blood Pressure Location Lt brachial Position Sitting Pulse 89 Pulse Source Pulse Oximeter Pulse Oximetry (%) 95 Oxygen Delivery Method Room Air Intake Visit Reasons: Dyspnea Intake Note: pt is here for follow up and states she is alright today, but had a cough that is getting better. 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 Allergies aspirin Adverse Reaction (Mild, Verified 05/19/24 10:19) stomach upset Medication List - Last Reconciled 05/19/24 by Tian Van MD acetaminophen ER (Tylenol Arthritis Pain) 650 mg PO Q8H PRN atorvastatin 40 mg PO DAILY Breo Ellipta 100-25 mcg/dose (fluticasone furoate-vilanterol) 1 ea PO DAILY NS cyclobenzaprine 10 mg PO BEDTIME PRN 30 days fenofibrate 54 mg PO DAILY 90 days ferrous sulfate 325 mg PO DAILY 90 days lactulose 10 grams (15 mL) PO BEDTIME PRN 30 days oxycodone-acetaminophen 5-325 mg 1 tab PO TID PRN umeclidinium 62.5 mcg/actuation (Incruse Ellipta) 1 inh inhalation BEDTIME 30 days Ventolin HFA 90 mcg/actuation (albuterol sulfate) 2 puffs inhalation Q6H PRN 30 days NS Do you need a note to return to daycare/school/sports/work: No HPI HPI Dyspnea: Details: ANDRES IS 69 YEARS OLD FEMALE WITH PAST HISTORY OF SMOKING. SHE WAS SUPPOSED TO HAVE QUIT IN 2021 BUT THEN SHE KEPT ON SMOKING OFF AND ON. NOW SHE CLAIMS THAT SHE HAS QUIT SINCE 4 MONTHS AGO. SHE GETS SHORT OF BREATH ON WALKING OR CLIMBING STAIRS, BUT NOT WHEN RESTING. SHE DOES HAVE INTERMITTENT COUGH WHICH IS MOSTLY DRY AND MOSTLY SINCE THE START OF WINTER. I THINK THIS HAS TO DO WITH DRYNESS OF THE AIR IN HER APARTMENT. SHE IS USING BREO ONCE A DAY AND WAS USING INCRUSE ELLIPTA BUT SHE HAS NOT GOTTEN IT FOR THE LAST FEW MONTHS. * I TALKED TO HER ABOUT ANNUAL LUNG SCREENING PROGRAM BUT SHE WANTS TO WAIT AND THINK ABOUT THIS. [facility] Medical History Hospital discharge follow-up Diverticulitis Hypercalcemia History of smoking at least 1 pack per day for at least 30 years COPD (chronic obstructive pulmonary disease) Chronic constipation Nondiabetic gastroparesis GERD (gastroesophageal reflux disease) COVID-19 Dyslipidemia Mild asthma Lumbar spondylosis Surgical History History of esophagogastroduodenoscopy (EGD) Hx of colonoscopy Hyperhidrosis Family History Father Alcoholism Mother Hypertension Diabetes High cholesterol Son Bipolar 1 disorder Anxiety Mental health disorder Social History Household Members: None Housing: Apartment Are you a primary career development associate to a significant other at home: No Do you presently have visiting nurse or other home services: No Alcohol intake: current Alcohol intake frequency: a few times a week Alcohol type: beer and other Patient Tobacco Use Status: Former Tobacco user Tobacco use type: Cigarette Cigarettes Per Day: 3 Years Smoked: 50 e-Cigarette/Vaping Use: Never Used Second Hand Smoke Exposure: No service: No Current occupational status: disabled Cognitive needs: No Hearing needs: No Vision needs: Yes Review of Systems Const All systems reviewed & are unremarkable except as noted in HPI and below Eyes Reports no additional complaints ENT Reports no additional complaints Card Denies chest pain, Denies irregular heart rhythm, Denies leg edema and Reports dyspnea on exertion Resp Reports as per HPI and Reports dyspnea on exertion GI Reports constipation and Reports heartburn (CONTROLLED WITH OMEPRAZOLE) Reports no additional complaints Musc Reports back pain (FREQUENT BACK SPASM) Skin/Breast Reports system reviewed and no additional complaints, except as documented Neuro Reports no additional complaints Psych Reports no additional complaints Physical Exam Vital Signs: Last Vital Signs Pulse 89 05/19/24 09:57 BP 112/50 L 05/19/24 09:57 Pulse Ox 95 05/19/24 09:57 Oxygen Delivery Method Room Air 05/19/24 09:57 BMI result Body Mass Index 26.2 Const General: comfortable (But anxious), no acute distress, alert and awake Orientation/consciousness: patient oriented x3 HEENT Head: Yes normal to inspection General nose exam: No nasal polyps present and No nasal discharge present Face and sinus: Yes sinuses nontender Mouth: oropharynx normal Throat: Yes posterior oropharynx normal Eyes General: appearance normal, both eyes and all related structures Neck Neck: Yes normal visual inspection, Yes no lymphadenopathy, Yes trachea midline and Yes no JVD Thyroid: Thyroid normal Chest Chest palpation & inspection: normal inspection of the chest, normal palpation of entire chest wall and no tenderness Resp Other: Percussion note hyper-resonant, breath sounds are distant with prolonged expiratory phase. No wheezes or rhonchi are heard. Cardio Palpation: normal PMI Rate: regular rate Rhythm: regular rhythm Heart sounds: no gallops and no murmurs Peripheral pulses: Peripheral pulses 2+ throughout GI Palpation (GI): Soft to palpation, nontender, No hepatosplenomegaly present and no masses Auscultation: normal bowel sounds Back/Spine/Pelvis Thoracic/Lumbar Spine: Thoracic/lumbar scoliosis (MODERATE ) Skin General skin exam: no rashes or lesions noted Neuro General: patient oriented x3 and no focal motor deficits Cranial nerves: Yes CN's II-XII intact bilaterally Extrem General: Yes normal to inspection, Yes no clubbing, cyanosis or edema and Yes no calf tenderness Psych Appearance: grossly normal and well kempt Speech and movement: Normal speech and movement present Assessment & Plan Assessment & Plan (1) COPD (chronic obstructive pulmonary disease): Comment: THIS PATIENT HAS MODERATELY SEVERE OBSTRUCTIVE AIRWAY DISORDER WITH PARTIAL REVERSIBILITY. C/W ASTHMA/COPD OVERLAP SYNDROME, LAST PFT IN 2020 . LOST SPIROMETRY IN NOVEMBER 2022. .REMAINS VERY STABLE. AT PRESENT HER MAIN SYMPTOM IS INTERMITTENT DRY COUGH. Code(s): J44.9 - Chronic obstructive pulmonary disease, unspecified Category: Medical Qualifiers: COPD type: unspecified COPD Qualified Code(s): J44.9 - Chronic obstructive pulmonary disease, unspecified Plan: ADVISED TO CONTINUE USING : BREO 100-251 INHALATION DAILY INCRUSE ELLIPTA 1 INHALATION DAILY ALBUTEROL HFA 2 PUFFS Q 6 HOURS P.R.N.. ADVISED TO HAVE A VAPORIZER IN THE BEDROOM AT NIGHT AND INCREASE HUMIDIFICATION IN THE LIVING ROOM DURING THE DAYTIME . (2) History of smoking at least 1 pack per day for at least 30 years: Comment: She has smoked about half pack of cigarettes a day for the last 30 years, QUIT in 2021 , but today she tells me that she kept on smoking off and on Now has not smoked in the last 4 months. Code(s): Z87.891 - Personal history of nicotine dependence Category: Social Hx Plan: Counseled about smoking and told her that she should not think of going back to it. Talked about annual lung screening and she wants to think about this. Medications: New albuterol sulfate 90 mcg/actuation 2 puffs inhalation Q4-6H PRN 8.5 grams 5RF shortness of breath or wheezing 30 days Changed From Breo Ellipta 100-25 mcg/dose (fluticasone furoate-vilanterol) 1 ea PO DAILY 60 ea 3RF NS To Breo Ellipta 100-25 mcg/dose (fluticasone furoate-vilanterol) 1 ea PO DAILY 60 ea 5RF copd 30 days NS Refilled Ventolin HFA 90 mcg/actuation (albuterol sulfate) 2 puffs inhalation Q6H PRN 8 grams 4RF shortness of breath or wheezing 30 days NS umeclidinium 62.5 mcg/actuation (Incruse Ellipta) 1 inh inhalation BEDTIME 30 ea 5RF copd 30 days Coding Level of Care Code Est Pt Level 3 (13833) Diagnoses Chronic obstructive pulmonary disease, unspecified COPD type J44.9 COPD type: unspecified COPD History of smoking at least 1 pack per day for at least 30 years Z87.899
[2024-05-19 09:57] VITALS: BP 112/50; PULSE 89; O2SAT 95; BMI 26.2
== END 2024-05-19 10:21 | disposition home or self-care (01) ==
PROVIDERS: PCP Internal Medicine; Visit Provider Internal Medicine
DX: J44.9 Chronic obstructive pulmonary disease, unspecified (principal); Z87.891 Personal history of nicotine dependence
CPT/HCPCS: 99213

== ENCOUNTER → 2024-05-19 09:40 | Outpatient (BNVA) | payer OTHER, SELFPAY | PROVIDERS: PCP Internal Medicine; Visit Provider Internal Medicine | DX: J44.9 Chronic obstructive pulmonary disease, unspecified (principal); Z87.891 Personal history of nicotine dependence | CPT/HCPCS: 99212 ==

== ENCOUNTER 2024-06-18 15:51 | Emergency (ER) | payer OTHER, SELFPAY ==
--- NOTE | ~2024-06-18 | CT_ITS ---
CLINICAL HISTORY: fall, head strike, pain CT cervical spine without contrast Comparison: None Findings: Grade 1 anterolisthesis at C2-3 and grade 1 retrolisthesis at C4-5. No acute fracture identified in the cervical spine. Craniocervical junction is intact. Nonfusion of the posterior arch of C1 which is developmental. Severe multilevel degenerative changes from C3-4 to C6-7. Multilevel facet arthropathy. Prevertebral soft tissues grossly within normal limits. Lung apices are clear. IMPRESSION: 1. No acute fracture in the cervical spine. 2. Grade 1 anterolisthesis at C2-3 and grade 1 retrolisthesis at C4-5. 3. Degenerative changes from C3-4 to C6-7. This document has been electronically signed by: Alethea Brown MD on 06/18/2024 19:42:03
--- NOTE | ~2024-06-18 | CT_ITS ---
CLINICAL HISTORY: right rib pain s p fall CT chest without contrast Comparison: None Findings: The heart is normal size. Coronary artery disease. Anterior pericardial thickening versus minimal pericardial effusion measuring up to 6 mm in thickness. Minimal emphysematous changes in the upper lobes. Mild bilateral basilar subsegmental atelectasis versus scarring. No consolidation, pleural effusion or pneumothorax. At least 6 small noncalcified nodules in the right upper lobe the largest 5 mm. 2 noncalcified nodules 3 mm in the left upper lobe and 9 mm in the left lower lobe just posterior to the fissure. The visualized thyroid and mediastinum are unremarkable. Visualized thyroid within normal limits. Thoracic esophagus within normal limits. Upper abdomen demonstrates no acute process. No acute fracture. IMPRESSION: 1. No acute trauma related findings chest. 2. At least 6 small right lung nodules and 2 left lung nodules. These are nonspecific. No prior studies for comparison. Follow-up recommended as per Fleischner society criteria. 3. Mild anterior pericardial thickening versus minimal fluid. 4. Additional nonacute findings as described. This document has been electronically signed by: Alethea Brown MD on 06/18/2024 18:35:21
--- NOTE | ~2024-06-18 | XR_ITS ---
CLINICAL HISTORY: pain, injury 3 view, pelvis and left hip Comparison: CR/MD/SR - XR HIP RT W PEL1V - 10/01/22 14:45 EDT Findings: No acute fracture. No dislocation. No significant degenerative changes. The soft tissues are unremarkable. IMPRESSION: No acute findings. This document has been electronically signed by: Alethea Brown MD on 06/18/2024 17:16:23
--- NOTE | ~2024-06-18 | CT_ITS ---
CLINICAL HISTORY: left hip pain, concern for fx CT abdomen and pelvis without contrast Comparison: CT - CT ABDOMEN PELVIS W CON - 06/25/21 19:22 EDT Findings: No consolidation or pleural effusion in lung bases. Mild anterior pericardial thickening/pericardial fluid. The gallbladder is within normal limits. No biliary ductal dilatation. Unenhanced liver, spleen and pancreas are within normal limits. Adrenal glands are normal. No renal or ureteral stones with no hydronephrosis or hydroureter. No bowel obstruction, pneumoperitoneum, or pneumatosis. Significant diverticulosis with no CT evidence of acute diverticulitis. [id number] colonic stool. No free fluid. Normal appendix. Urinary bladder is distended but otherwise appears unremarkable with no stones or bladder wall thickening. Uterus is present and appears within normal limits. Atherosclerotic vascular disease with no aneurysm of the abdominal aorta. No acute fracture. Levoscoliosis and multilevel degenerative changes in the lower thoracic and lumbar spine. IMPRESSION: 1. No acute fracture. Specifically no acute left hip fracture dislocation. 2. No acute findings in the abdomen and pelvis. 3. Nonacute findings as described. This document has been electronically signed by: Alethea Brown MD on 06/18/2024 22:20:12
--- NOTE | ~2024-06-18 | CT_ITS ---
CLINICAL HISTORY: fall, head strike, pain CT head without contrast Comparison: None Findings: No intra-axial mass, midline shift, hydrocephalus, or acute hemorrhage. There is atrophy. Nonspecific supratentorial white matter hypodensities most suggestive of chronic small-vessel ischemic changes. Atherosclerotic vascular disease. The visualized paranasal sinuses and mastoid air cells are normal. The orbits are unremarkable. No acute skull fracture. IMPRESSION: 1. No acute intracranial findings. This document has been electronically signed by: Alethea Brown MD on 06/18/2024 19:36:23
--- NOTE | ~2024-06-18 | XR_ITS ---
CLINICAL HISTORY: pain, injury 3 view right elbow Comparison: CR - ELBOW RIGHT COMPLETE [id number] - 03/18/18 09:38 EST Findings: No acute fractures. Normal alignment. No significant loss of joint space, osteophytes, or erosions. No joint effusion. No radiopaque foreign body. IMPRESSION: 1. No acute findings This document has been electronically signed by: Alethea Brown MD on 06/18/2024 17:15:46
[2024-06-18 15:56] VITALS: BP 150/66; PULSE 97; O2SAT 97
--- NOTE | 2024-06-18 15:57 | ED_ITS ---
HPI - General Adult General Chief complaint: Fall Stated complaint: fall, right foot shorter than left, thigh/rib pain Time Seen by Provider: 06/18/24 15:54 Source: patient and EMS Mode of arrival: EMS Limitations: no limitations History of Present Illness ED Provider: Julia Ma PA-C HPI narrative: Patient is a 69 year old assigned female at with a history of asthma, GERD, and anemia presenting to the emergency department today with left thigh / hip pain and right rib pain after a slip and fall. Patient states that she was walking when she tripped on a curb and landed on her left thigh. Patient denies any loss of consciousness or head strike. Patient denies any dizziness, lightheadedness, abdominal pain, nausea, vomiting, fever, chills, blurry vision, double vision, loss of vision, chest pain, difficulty breathing, shortness of breath, back pain, night sweats, pain with urination, increased urinary frequency, increased urinary urgency, blood in her urine or stool, syncope or a near syncopal episode, bowel incontinence, bladder incontinence, or any other complaints at this time. Relieving factors: none Exacerbating factors: none Associated symptoms: denies other symptoms Treatments prior to arrival: none Related Data Home Medications ?Medication ?Instructions ?Recorded ?Confirmed acetaminophen 650 mg 650 mg PO Q8H PRN Pain 02/21/22 05/19/24 tablet,extended release (Tylenol Arthritis Pain) Previous Rx's ?Medication ?Instructions ?Recorded fenofibrate 54 mg tablet 54 mg PO DAILY 90 days #90 tabs 08/31/23 atorvastatin 40 mg tablet 40 mg PO DAILY #90 tabs 03/18/24 lactulose 10 gram/15 mL oral 10 g (15 mL) PO BEDTIME PRN 03/22/24 solution constipation 30 days #946 mL cyclobenzaprine 10 mg tablet 10 mg PO BEDTIME PRN muscle spasm 04/12/24 30 days #30 tabs Breo Ellipta 100 mcg-25 mcg/dose 1 ea PO DAILY copd 30 days #60 ea 05/19/24 powder for inhalation (fluticasone furoate-vilanterol) Ventolin HFA 90 mcg/actuation 2 puff inhalation Q6H PRN 05/19/24 aerosol inhaler (albuterol sulfate) shortness of breath or wheezing 30 days #8 grams albuterol sulfate 90 mcg/actuation 2 puff inhalation Q4-6H PRN 05/19/24 aerosol inhaler shortness of breath or wheezing 30 days #8.5 grams umeclidinium 62.5 mcg/actuation 1 inh inhalation BEDTIME copd 30 05/19/24 blister powder for inhalation days #30 ea (Incruse Ellipta) ferrous sulfate 325 mg (65 mg 325 mg PO DAILY 90 days #90 tabs 06/09/24 iron) tablet oxycodone-acetaminophen 5 mg-325 1 tab PO TID PRN pain #84 tabs 06/18/24 mg tablet Allergies Allergy/AdvReac Type Severity Reaction Status Date / Time aspirin AdvReac Mild stomach Verified 06/18/24 15:59 upset Review of Systems Constitutional: Constitutional: Reports no additional constitutional complaints, Denies chills, Denies fever(s) and Denies night sweats Eyes: Eyes: Reports no additional eye complaints, Denies blurry vision, Denies change in vision, Denies diplopia, Denies eye discharge, Denies loss of vision and Denies eye pain ENT: Denies dizziness Cardiovascular: Cardiovascular: Reports no additional cardiovascular c omplaints, Denies chest pain, Denies lightheadedness, Denies Loss of Consciousness and Denies dyspnea Respiratory: Respiratory: Reports no additional respiratory complaints and Denies dyspnea Gastrointestinal: Gastrointestinal: Reports no additional gastrointestinal complaints, Denies abdominal pain, Denies melena, Denies hematochezia, Denies change in bowel habits and Denies change in stool character Genitourinary: Genitourinary: Denies hematuria, Denies urinary frequency, Denies dysuria, Denies urinary incontinence, Denies urinary hesitancy and Denies urinary urgency Musculoskeletal: Musculoskeletal: Reports no additional musculoskeletal complaints, Denies numbness and Denies tingling Comments: right sided rib pain, left thigh / hip pain, right elbow pain Neurologic: Denies dizziness, Denies loss of vision, Denies numbness and Denies tingling Psychiatric: Psychiatric: Reports no additional psychiatric complaints Endocrine: Endocrine: Reports no additional endocrine complaints Hematologic/Lymphatic: Hematologic/Lymphatic: Reports no additional hematologic/lymphatic complaints Allergic/Immunologic: Allergic/Immunologic: Reports no additional allergic/immunologic complaints PMFSH Past Medical History Attestation statement: The following information was validated with the patient. Source: old records reviewed and nursing notes reviewed Medical History Hospital discharge follow-up Diverticulitis Hypercalcemia History of smoking at least 1 pack per day for at least 30 years COPD (chronic obstructive pulmonary disease) Chronic constipation Nondiabetic gastroparesis GERD (gastroesophageal reflux disease) COVID-19 Dyslipidemia Mild asthma Lumbar spondylosis Surgical History History of esophagogastroduodenoscopy (EGD) Hx of colonoscopy Hyperhidrosis Family History Family History Father Alcoholism Mother Hypertension Diabetes High cholesterol Son Bipolar 1 disorder Anxiety Mental health disorder Social History Social History Household Members: None Housing: Apartment Are you a primary hospice care consultant to a significant other at home: No Do you presently have visiting nurse or other home services: No Unable to assess alcohol history related to: Unknown Alcohol intake: current Alcohol intake frequency: a few times a week Alcohol type: beer and other Patient Tobacco Use Status: Former Tobacco user Tobacco use type: Cigarette Cigarettes Per Day: 3 Years Smoked: 50 Smoked in Last 30 Days: No e-Cigarette/Vaping Use: Never Used Second Hand Smoke Exposure: No Use of substances other than those prescribed or required for medical reasons: Unknown Advance Directives: No Advance Directives Information Provided: No Do you have a plan to hurt others: No Plan service: No Current occupational status: disabled Cognitive needs: No Hearing needs: No Vision needs: Yes Physical Exam ED Vital Signs: Vital Signs - 24 hr 06/18/24 16:07 06/18/24 18:06 06/18/24 20:29 Temperature 97.5 F 97.2 F 98.2 F Pulse Rate 86 60 79 Respiratory Rate 14 14 18 Blood Pressure 148/58 H 124/50 L 126/59 L Pulse Oximetry 93 96 93 Oxygen Delivery Method Room Air Room Air Room Air 06/18/24 22:29 Temperature Pulse Rate Respiratory Rate 12 Blood Pressure Pulse Oximetry Oxygen Delivery Method BMI result Body Mass Index 26.7 Const General: cooperative, no acute distress, alert and awake Nutritional Appearance: well nourished Orientation/consciousness: patient oriented x3 Limitations: no limitations HENMT Head: Yes normal to inspection and Yes atraumatic Ears: hearing grossly normal bilaterally and external ears normal General nose exam: Normal external nose present, no nasal discharge noted and no epistaxis Face and sinus: Yes normal facial exam, No abrasion and No laceration Mouth: Normal oral and palatal mucosa present, no drooling and no muffled voice Eyes General: appearance normal, both eyes and all related structures Periorbital: periorbital findings normal Eyelids: Yes eyelids normal Conjunctivae: conjunctivae normal Pupils: Equal, round and reactive pupils present EOM: EOMs intact bilaterally Neck Neck: Yes normal visual inspection, Yes full ROM and Yes no lymphadenopathy Chest Chest palpation & inspection: normal inspection of the chest Resp Effort & Inspection: normal respiratory effort and able to speak in complete sentences GI Inspection: Yes normal to inspection Neuro General: patient oriented x3, moves all extremities and CN's II-XI intact bilaterally Cranial nerves: Yes Equal, round and reactive pupils present Cognition (Neuro): normal cognition Extrem Other: pain with left hip / pelvis ROM General: Yes normal to inspection and Yes capillary refill normal Psych Appearance: grossly normal Mental Status: mental status grossly normal Affect: normal affect Attitude: cooperative Thought process: Normal thought process present Thought content: Normal thought content present Insight: Good insight present (Psych) Course Course Course Narrative: 2236--CT abdomen pelvis wo IV con IMPRESSION: 1. No acute fracture. Specifically no acute left hip fracture dislocation. 2. No acute findings in the abdomen and pelvis. 3. Nonacute findings as described. > 2238-- patient unable to ambulate secondary to pain. Physician observation initiated pending PT/case management Medical Decision Making Medical Decision Making MDM Narrative: Patient is a 69 year old assigned female at with a history of asthma, GERD, and anemia presenting to the emergency department today with left thigh / hip pain and right rib pain after a slip and fall. Patient's physical exam showed pain with left hip / pelvis ROM. Patient attempted to bear weight on the left side and immediately began to fall. Patient was caught before she actually felt and placed back into bed. Patient's left hip /pelvis and elbow x-rays showed no acute process. Patient's CT chest, head, and c-spine showed no acute process. Patient's abdomen/pelvis CT is pending. I explained my physical exam findings as well as all test results to the patient. I answered all questions asked by the patient. Patient declined any pain medication at this time. Patient signed out to BEN Haney pending CT read. Patient will likely need evaluation by physical therapy and case management due to inability to ambulate. Patient declined any pain medication. Differential Diagnosis Differential Diagnoses: The differential diagnosis associated with the presentation includes Left hip pain Left leg pain Fall Right sided rib pain Admission/Observation Consideration of admission/observation: Escalation of care including admission/observation considered Patient's disposition will be determined after CT of the abdomen/pelvis is read. Independent Interpretation I performed an independent interpretation of an: Plain X-Ray and CT Scan Interpretation: My interpretation is in agreement with the radiologist's impression of these imaging studies. Report Number: [id number]: Total DLP = 1167.00 mGy-cm CLINICAL HISTORY: fall, head strike, pain CT cervical spine without contrast Comparison: None Findings: Grade 1 anterolisthesis at C2-3 and grade 1 retrolisthesis at C4-5. No acute fracture identified in the cervical spine. Craniocervical junction is intact. Nonfusion of the posterior arch of C1 which is developmental. Severe multilevel degenerative changes from C3-4 to C6-7. Multilevel facet arthropathy. Prevertebral soft tissues grossly within normal limits. Lung apices are clear. IMPRESSION: 1. No acute fracture in the cervical spine. 2. Grade 1 anterolisthesis at C2-3 and grade 1 retrolisthesis at C4-5. 3. Degenerative changes from C3-4 to C6-7. This document has been electronically signed by: Alethea Brown MD on 06/18/2024 19:42:03 Dictated By: Alethea Brown MD Signed By: Electronically signed by Alethea Brown MD 06/18/241942 Report Number: [id number]: Total DLP = 1167.00 mGy-cm CLINICAL HISTORY: fall, head strike, pain CT head without contrast Comparison: None Findings: No intra-axial mass, midline shift, hydrocephalus, or acute hemorrhage. There is atrophy. Nonspecific supratentorial white matter hypodensities most suggestive of chronic small-vessel ischemic changes. Atherosclerotic vascular disease. The visualized paranasal sinuses and mastoid air cells are normal. The orbits are unremarkable. No acute skull fracture. IMPRESSION: 1. No acute intracranial findings. This document has been electronically signed by: Alethea Brown MD on 06/18/2024 19:36:23 Dictated By: Alethea Brown MD Signed By: Electronically signed by Alethea Brown MD 06/18/241937 Report Number: [id number]: Total DLP = 1167.00 mGy-cm CLINICAL HISTORY: right rib pain s p fall CT chest without contrast Comparison: None Findings: The heart is normal size. Coronary artery disease. Anterior pericardial thickening versus minimal pericardial effusion measuring up to 6 mm in thickness. Minimal emphysematous changes in the upper lobes. Mild bilateral basilar subsegmental atelectasis versus scarring. No consolidation, pleural effusion or pneumothorax. At least 6 small noncalcified nodules in the right upper lobe the largest 5 mm. 2 noncalcified nodules 3 mm in the left upper lobe and 9 mm in the left lower lobe just posterior to the fissure. The visualized thyroid and mediastinum are unremarkable. Visualized thyroid within normal limits. Thoracic esophagus within normal limits. Upper abdomen demonstrates no acute process. No acute fracture. IMPRESSION: 1. No acute trauma related findings chest. 2. At least 6 small right lung nodules and 2 left lung nodules. These are nonspecific. No prior studies for comparison. Follow-up recommended as per Fleischner society criteria. 3. Mild anterior pericardial thickening versus minimal fluid. 4. Additional nonacute findings as described. This document has been electronically signed by: Alethea Brown MD on 06/18/2024 18:35:21 Dictated By: Alethea Brown MD Signed By: Electronically signed by Alethea Brown MD 06/18/24 1836 CLINICAL HISTORY: pain, injury 3 view, pelvis and left hip Comparison: CR/DC/SR - XR HIP RT W [id number] - 10/01/22 14:45 EDT Findings: No acute fracture. No dislocation. No significant degenerative changes. The soft tissues are unremarkable. IMPRESSION: No acute findings. This document has been electronically signed by: Alethea Brown MD on 06/18/2024 17:16:23 Dictated By: Alethea Brown MD Signed By: Electronically signed by Alethea Brown MD 06/18/24 1717 CLINICAL HISTORY: pain, injury 3 view right elbow Comparison: CR - ELBOW RIGHT COMPLETE [id number] - 03/18/18 09:38 EST Findings: No acute fractures. Normal alignment. No significant loss of joint space, osteophytes, or erosions. No joint effusion. No radiopaque foreign body. IMPRESSION: 1. No acute findings This document has been electronically signed by: Alethea Brown MD on 06/18/2024 17:15:46 Dictated By: Alethea Brown MD Signed By: Electronically signed by Alethea Brown MD 06/18/24 1719 Radiology Impression Discussion of test interpretation with radiology: I have reviewed the radiologist's reading. Independent Historian Clinical information obtained from an independent historian. History obtained from or confirmed by: EMS (EMS provided additional history and confirmed the history provided by the patient.) Discharge Plan Discharge Clinical Impression: Fall, Acute pain of left hip Patient Disposition: Still a Patient Instructions: Fall Prevention for Older Adults (ED) Prescriptions: No Action fenofibrate 54 mg tablet 54 mg PO DAILY 90 Days Qty: 90 3RF atorvastatin 40 mg tablet 40 mg PO DAILY Qty: 90 2RF cyclobenzaprine 10 mg tablet 10 mg PO BEDTIME PRN (Reason: muscle spasm) 30 Days Qty: 30 0RF ferrous sulfate 325 mg (65 mg iron) tablet 325 mg PO DAILY 90 Days Qty: 90 1RF oxycodone-acetaminophen 5-325 mg tablet 1 tab PO TID PRN (Reason: pain) Qty: 84 0RF acetaminophen [Tylenol Arthritis Pain] 650 mg Tablet Extended Release 650 mg PO Q8H PRN (Reason: Pain) fluticasone furoate-vilanterol [Breo Ellipta] 100-25 mcg/dose blister with device 1 ea PO DAILY 30 Days Qty: 60 5RF albuterol sulfate 90 mcg/actuation HFA aerosol inhaler 2 puff inhalation Q4-6H PRN (Reason: shortness of breath or wheezing) 30 Days Qty: 8.5 5RF albuterol sulfate [Ventolin HFA] 90 mcg/actuation HFA aerosol inhaler 2 puff inhalation Q6H PRN (Reason: shortness of breath or wheezing) 30 Days Qty: 8 4RF Incruse Ellipta 62.5 mcg/actuation blister with device 1 inh inhalation BEDTIME 30 Days Qty: 30 5RF lactulose 10 gram/15 mL solution 10 g PO BEDTIME PRN (Reason: constipation) 30 Days Qty: 946 0RF Referrals: [facility] Family [facility] [Provider Group] (Call to establish and follow up with a primary care provider. If you already have a primary care provider, please follow up with them.) [facility] [Provider Group] (Call to establish and follow up with a primary care provider. If you already have a primary care provider, please follow up with them.) [facility] [Provider Group] (Call to establish and follow up with a primary care provider. If you already have a primary care provider, please follow up with them.) [facility] [Provider Group] (Call to establish and follow up with a primary care provider. If you already have a primary care provider, please follow up with them.) Print Language: Iraqi
[2024-06-18 15:58] VITALS: BMI 26.7
[2024-06-18 16:07] VITALS: BP 148/58; PULSE 86; RESP 14; TEMP 36.4; O2SAT 93
[2024-06-18 18:06] VITALS: BP 124/50; PULSE 60; RESP 14; TEMP 36.2; O2SAT 96
--- NOTE | 2024-06-18 19:45 | PC.NURSE ---
patient unable to ambulate without severe pain to left upper leg. PA made aware.
[2024-06-18 20:29] VITALS: BP 126/59; PULSE 79; RESP 18; TEMP 36.8; O2SAT 93
--- NOTE | 2024-06-18 21:44 | MHC.CM.ED ---
Addendum entered by Wendy Roger 06/18/24 23:30: CT pelvis/abd negative for FX. Addendum entered by Wendy Roger 06/18/24 23:28: No HCP on file. CT abd/pelvis pending. Addendum entered by Wendy Roger 06/18/24 23:26: CM attempted to meet with patient again at 2230. Pt did not wake to voice or gentle touch. Sleeping soundly. PT is pending. PCP is Kaela Levine. Original Note: CM attempted to meet with patient. Pt is sleeping soundly. Did not wake to voice or gentle touch. PT is pending. Will assess when patient wakes.
[2024-06-18 22:29] VITALS: RESP 12
[2024-06-19 06:13] VITALS: BP 114/57; PULSE 84; RESP 18; TEMP 36.9; O2SAT 96
[2024-06-19 08:50] VITALS: BP 114/57; PULSE 84; O2SAT 96
--- NOTE | 2024-06-19 08:57 | PC.NURSE ---
Patient ambulated to curtain without walker.
--- NOTE | 2024-06-19 10:54 | MHC.CM.PN ---
C MET W/PT AT BEDSIDE ED17, P.T. CLEARED PT FOR HOME NO SERVICES W/FAMILY SUPPORT, PT REPORTS [place]ON [place] S[place] AND [place] HELP IF NEEDED, PT HAS A ROLLATOR, GRAB BARS IN BR AND DENIES NEED FOR ANY ADDITIONAL DME, PT ANXIOUS TO DC HOME AND WILL CALL SON, PT WOULD LIKE TO WAIT IN ED WAITING ROOM ONCE SHE GETS DC PAPERWORK, ED PROVIDER NOTIFIED VIA TIGER. PT EDUCATED ON AND COMPLPETED A HCP NAMING HER SON GLEN DELGADO [phone] [facility] AND HER SISTER NAI MAURICIO [phone] HER ALTERNATE, PT PROVIDED W/EDUCATIONAL HANDOUT, ORIGINAL AND COPY GIVEN TO ED REGISTRATION TO UPLOAD TO CHART.
[2024-06-19 11:20] VITALS: BP 113/49; PULSE 86; RESP 16; TEMP 36.7; O2SAT 95
--- NOTE | 2024-06-19 12:20 | PHA.MEDREC ---
Pharmacy Consult ? Medication Reconciliation Pharmacy has completed the medication reconciliation. Utilize recent office visit and claims.
== END 2024-06-19 11:21 | disposition home or self-care (01) ==
PROVIDERS: Emergency Provider Emergency Medicine
DX: S79.921A Unspecified injury of right thigh, initial encounter (principal); R07.81 Pleurodynia; M79.605 Pain in left leg; R10.2 Pelvic and perineal pain; M25.521 Pain in right elbow; R26.81 Unsteadiness on feet; R51.9 Headache, unspecified; W01.0XXA Fall on same level from slipping, tripping and stumbling without subsequent striking against object, initial encounter; Y93.01 Activity, walking, marching and hiking; Y92.480 Sidewalk as the place of occurrence of the external cause; Y99.8 Other external cause status; Z79.899 Other long term (current) drug therapy; Z87.891 Personal history of nicotine dependence
CPT/HCPCS: 70450; 71250; 72125; 73080; 73502; 74176; 97161; 99284

== ENCOUNTER → 2024-06-18 16:03 | Outpatient (BNV) | payer OTHER, SELFPAY | PROVIDERS: Emergency Provider Emergency Medicine; Visit Provider Specialist | DX: M16.12 Unilateral primary osteoarthritis, left hip (principal); R91.8 Other nonspecific abnormal finding of lung field; M50.30 Other cervical disc degeneration, unspecified cervical region; S00.93XA Contusion of unspecified part of head, initial encounter; M25.521 Pain in right elbow | CPT/HCPCS: 70450; 71250; 72125; 73080; 73502; 74176 ==

== ENCOUNTER 2024-10-13 10:31 | Outpatient (AMB) | payer OTHER, SELFPAY ==
[2024-10-13 10:44] VITALS: BP 140/66; BMI 26.0
--- NOTE | 2024-10-13 10:44 | MHC.PC.OV ---
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: No Accompanied by: Self / Same As Patient Allergies aspirin Adverse Reaction (Mild, Verified 10/13/24 10:55) stomach upset Medication List - Last Reconciled 10/13/24 by Kaela Levine MD acetaminophen ER (Tylenol Arthritis Pain) 650 mg PO Q8H PRN albuterol sulfate 90 mcg/actuation 2 puffs inhalation Q4-6H PRN 30 days atorvastatin 40 mg PO DAILY Breo Ellipta 100-25 mcg/dose (fluticasone furoate-vilanterol) 1 ea PO DAILY 30 days NS cyclobenzaprine 10 mg PO BEDTIME PRN 30 days fenofibrate 54 mg PO DAILY 90 days ferrous sulfate 325 mg PO DAILY 90 days lactulose 10 grams (15 mL) PO BEDTIME PRN 30 days oxycodone-acetaminophen 5-325 mg 1 tab PO TID PRN umeclidinium 62.5 mcg/actuation (Incruse Ellipta) 1 inh inhalation BEDTIME 30 days Ventolin HFA 90 mcg/actuation (albuterol sulfate) 2 puffs inhalation Q6H PRN 30 days NS Tobacco use date assessed: 10/13/24 Fall risk assessment: 1 Fall in past year Last assessed Fall Risk: 10/13/24 Dental Screening Dental Screen Date: 10/13/24 Did you have a dental visit in the last 12 months?: No Did you have a dental problem in the last 6 months where you did not have access to dental care?: No Was dental information given to patient?: Patient has dentist HPI HPI Comments History of Present Illness Details This is a 69-year-old female that comes for her physical exam. Colonoscopy done 2022 was normal. Vaccines are up-to-date. Tdap vaccine was done today. Mammogram up-to-date. Last DEXA scan was 2021 and I will order another. She has COPD and follows with pulmonology. [facility] Medical History (Updated 10/13/24 @ 12:23 by Kaela Levine MD) Minimal recurrent major depressive disorder Hospital discharge follow-up Diverticulitis Hypercalcemia History of smoking at least 1 pack per day for at least 30 years COPD (chronic obstructive pulmonary disease) Chronic constipation Nondiabetic gastroparesis GERD (gastroesophageal reflux disease) COVID-19 Dyslipidemia Mild asthma Lumbar spondylosis Surgical History History of esophagogastroduodenoscopy (EGD) Hx of colonoscopy Hyperhidrosis Family History (Updated 10/13/24 @ 11:01 by Kaela Levine MD) Father Alcoholism Mother Hypertension Diabetes High cholesterol Son Bipolar 1 disorder Anxiety Mental health disorder Social History Household Members: None Housing: Apartment Are you a primary childcare aide to a significant other at home: No Do you presently have visiting nurse or other home services: No Unable to assess alcohol history related to: Unknown Alcohol intake: current Alcohol intake frequency: a few times a week Alcohol type: beer and other Patient Tobacco Use Status: Former Tobacco user Tobacco use type: Cigarette Cigarettes Per Day: 3 Years Smoked: 50 e-Cigarette/Vaping Use: Never Used Second Hand Smoke Exposure: No service: No Current occupational status: disabled Cognitive needs: No Hearing needs: No Vision needs: Yes Questionnaire PHQ-9 Over the last 2 weeks, how often have you been bothered by any of the following problems? 1. Little interest or pleasure in doing things: not at all 2. Feeling down, depressed, or hopeless: not at all 3. Trouble falling or staying asleep, or sleeping too much: not at all 4. Feeling tired or having little energy: not at all 5. Poor appetite or overeating: not at all 6. Feeling bad about yourself - or that you are a failure or have let yourself or your family down: several days 7. Trouble concentrating on things, such as reading the newspaper or watching television: not at all 8. Moving or speaking so slowly that other people could have noticed. Or the opposite - being so fidgety or restless that you have been moving around a lot more than usual: not at all 9. Thoughts that you would be better off or of hurting yourself in some way: not at all Total score: 1 Depression Screening Interpretation: Negative Depression Screening Done: Yes 47081 - PHQ-9 Billing: Yes Source: Developed by Drs. Yaya Larson, Colleen Torres, Lazarus Reynolds and colleagues, with an educational zulema from [employer]. Thrive Questionnaire Date Thrive assessed: 10/13/24 I am a: Patient What is your living situation today?: I have a steady place to live Within the past 12 months, did the food you bought not last and you didn't have the money to get more?: Never true Within the past 12 months, did you worry whether your food would run out before you got money to buy more?: Never true Do you have trouble paying for medicines?: No Do you have trouble getting transportation to medical appointments?: No Do you have trouble paying your heating and electricity bill?: No Do you have trouble taking care of your child, family member or friend?: No Do you have trouble with day-to-day activities such as bathing, preparing meals, shopping, managing finances, etc.?: No Are you currently unemployed and looking for a job?: No Are you interested in more education?: No Please select the resources that you would like help with: None Currently or been in a relationship where the following occur: No concerns reported THRIVE Score: 0 AUDIT C Alcohol Use Questionnaire (AUDIT-C) 1. How often do you have a drink containing alcohol?: Never Total Score: 0 Score Reviewed/Action Taken: No DELANEY-7 AMB Questionnaire DELANEY-7 Date DELANEY - 7 assessed: 10/13/24 Feeling nervous, anxious, or on edge: 0 = Not at all Not being able to stop or control worryin = Not at all Worrying too much about different things: 0 = Not at all Trouble relaxin = Not at all Being so restless that it is hard to sit still: 0 = Not at all Becoming easily annoyed or irritable: 0 = Not at all Feeling afraid as if something awful might happen: 0 = Not at all Total DELANEY-7 score (0-4 normal; 5-9 mild; 10-14 moderate; 15-21 severe): 0 Source: Developed by Drs. Yaya Larson, Lazarus Rutherford and colleagues, with an educational zulema from [employer]. DELANEY-7 Assessment Billing DELANEY-7 Assessment Tool: DELANEY-7 Assessment 30877 Review of Systems Const All systems reviewed & are unremarkable except as noted in HPI and below Card Denies chest pain at rest, Denies chest pain with activity, Denies edema, Denies irregular heart rhythm, Denies claudication, Denies dyspnea, Denies dyspnea on exertion, Denies orthopnea, Denies paroxysmal nocturnal dyspnea and Denies slow heart rate Resp Denies cough, Denies dyspnea and Denies dyspnea on exertion GI Denies abdominal pain, Denies change in bowel habits, Denies excessive flatus, Denies nausea and Denies vomiting Denies urinary incontinence, Denies urinary hesitancy and Denies urinary urgency Musc Denies abnormal gait, Denies atrophy, Denies deformity and Denies limited range of motion Skin/Breast Denies bleeding lesions, Denies changing lesions and Denies rash Neuro Denies abnormal gait, Denies behavioral changes and Denies lack of coordination Psych Denies behavioral changes Physical exam (Primary Care) Vital Signs: Last Vital Signs BP 140/66 H 10/13/24 10:44 BMI result Body Mass Index 26.0 Tobacco/Smoking Status: Tobacco use Status Tobacco use date assessed 10/13/24 10/13/24 10:51 Patient Tobacco Use Status Former Tobacco user 10/13/24 10:47 Tobacco use type Cigarette 10/13/24 10:47 e-Cigarette/Vaping Use Never Used 10/13/24 10:47 PHQ-9: PHQ-9 Score PHQ-9: Total score 1 10/13/24 11:09 Depression Screening Interpretation: Negative Thrive Assessment: Date of Thrive Assessment Date Thrive assessed 10/13/24 10/13/24 10:51 Currently or been in a relationship where the following occur: No concerns reported [facility] Head: Yes normal to inspection, Yes normocephalic and Yes atraumatic Ears: external ears normal Eyes General: appearance normal, both eyes and all related structures Eyelids: Yes eyelids normal Conjunctivae: conjunctivae normal Neck Neck: Yes normal visual inspection and Yes supple Resp Effort & Inspection: normal respiratory effort Auscultation: clear to auscultation bilaterally Cardio Jugular venous distension: no JVD Rate: regular rate Rhythm: regular rhythm Heart sounds: S1 normal heart sound present and S2 normal heart sound present GI Inspection: Yes normal to inspection Palpation (GI): Soft to palpation and nontender Auscultation: normal bowel sounds Skin General skin exam: no rashes or lesions noted Neuro General: no focal motor deficits Extrem General: Yes full ROM Psych Appearance: grossly normal Immunizations Boostrix Tdap 2.5 Lf unit-8 mcg-5 Lf/0.5 mL intramuscular syringe Performing Provider: Kaela Levine MD Performing [facility] [place] [facility] Administered by: LUCY Scott on 10/13/24 11:13 Dose Route Admin Location Dispensed Lot Number Expiration Date NDC Architecture Manager 0.5 mL IM Left Deltoid 0.5 mL [id number] 12/04/26 70721-184-05 [employer] Total Dispensed Waste 0.5 mL 0 % VIS Given Date VIS Provided VIS Publication Date 10/13/24 Single Vaccine 24 Eligibility Eligibility Date Funding Source Not [facility] Eligible 10/13/24 Private Coding Level of Care Code Est Pt Prev Care >65y(31304) Diagnoses Physical exam Z00.00 Chronic obstructive pulmonary disease, unspecified COPD type J44.9 COPD type: unspecified COPD Additional Codes DELANEY-7 Assessment Billing - DELANEY-7 Assessment Tool: DELANEY-7 Assessment 96527 ([id number]) PHQ-9 - 29162 - PHQ-9 Billing: Yes ([id number]) Time Spent (min) 33 Assessment & Plan Assessment & Plan (1) Physical exam: Code(s): Z00.00 - Encounter for general adult medical examination without abnormal findings Category: Medical (2) COPD (chronic obstructive pulmonary disease): Comment: THIS PATIENT HAS MODERATELY SEVERE OBSTRUCTIVE AIRWAY DISORDER WITH PARTIAL REVERSIBILITY. C/W ASTHMA/COPD OVERLAP SYNDROME, LAST PFT IN 2020 . LOST SPIROMETRY IN NOVEMBER 2022. .REMAINS VERY STABLE. AT PRESENT HER MAIN SYMPTOM IS INTERMITTENT DRY COUGH. Code(s): J44.9 - Chronic obstructive pulmonary disease, unspecified Category: Medical Qualifiers: COPD type: unspecified COPD Qualified Code(s): J44.9 - Chronic obstructive pulmonary disease, unspecified Plan Continue current meds. Follow-up with pulmonology. DEXA scan ordered. Orders: Orders Lipid Panel Today E78.5 - Hyperlipidemia, unspecified Comprehensive [place]. Panel Fast Today Z00.00 - Encounter for general adult medical examination without abnormal findings TDaP Immunization Today Z23 - Encounter for immunization XR DEXA axial skeleton Today Z78.0 - Asymptomatic menopausal state Complete Blood Count Auto Diff Today D64.9 - Anemia, unspecified Medications: Refilled oxycodone-acetaminophen 5-325 mg 1 tab PO TID PRN 84 tabs 0RF pain atorvastatin 40 mg PO DAILY 90 tabs 2RF
== END 2024-10-13 11:14 | disposition home or self-care (01) ==
LOC: HO.HMCH 10:32
PROVIDERS: PCP Internal Medicine; Visit Provider Internal Medicine
DX: Z00.00 Encounter for general adult medical examination without abnormal findings (principal); J44.9 Chronic obstructive pulmonary disease, unspecified; Z23 Encounter for immunization

== ENCOUNTER → 2024-10-13 10:31 | Outpatient (BNVA) | payer OTHER, SELFPAY | PROVIDERS: PCP Internal Medicine; Visit Provider Internal Medicine | DX: Z00.00 Encounter for general adult medical examination without abnormal findings (principal); Z23 Encounter for immunization; J44.9 Chronic obstructive pulmonary disease, unspecified; Z13.31 Encounter for screening for depression; Z13.30 Encounter for screening examination for mental health and behavioral disorders, unspecified | CPT/HCPCS: 90471; 90715; 96127; 99397 ==

== ENCOUNTER 2024-11-15 10:04 | Outpatient (AMB) | payer OTHER, SELFPAY ==
--- NOTE | 2024-11-15 10:12 | A.OFFVIS_ITS ---
Vital Signs 11/15/24 10:13 Height 4 ft 8 in Weight 117 lb 15.157 oz BMI 26.4 BP 130/60 Blood Pressure Location Lt brachial Position Sitting Pulse 81 Pulse Source Pulse Oximeter Pulse Oximetry (%) 97 Oxygen Delivery Method Room Air Intake Visit Reasons: Dyspnea Intake Note: pt is here for follow up and states she is feeling good Backup Administrative Coordinator Required: No Allergies aspirin Adverse Reaction (Mild, Verified 11/15/24 10:31) stomach upset Medication List - Last Reconciled 11/15/24 by Tian Van MD acetaminophen ER (Tylenol Arthritis Pain) 650 mg PO Q8H PRN albuterol sulfate 90 mcg/actuation 2 puffs inhalation Q4-6H PRN 30 days atorvastatin 40 mg PO DAILY Breo Ellipta 100-25 mcg/dose (fluticasone furoate-vilanterol) 1 ea PO DAILY 30 days NS cyclobenzaprine 10 mg PO BEDTIME PRN 30 days fenofibrate 54 mg PO DAILY 90 days ferrous sulfate 325 mg PO DAILY 90 days lactulose 10 grams (15 mL) PO BEDTIME PRN 30 days oxycodone-acetaminophen 5-325 mg 1 tab PO TID PRN Ventolin HFA 90 mcg/actuation (albuterol sulfate) 2 puffs inhalation Q6H PRN 30 days NS Do you need a note to return to daycare/school/sports/work: No HPI HPI Dyspnea: Details: 69 YEARS OLD FEMALE WITH CHRONIC OBSTRUCTIVE PULMONARY DISEASE, PAST HISTORY OF SMOKING FOR MANY YEARS, CLAIMS THAT SHE HAS QUIT SMOKING NOW SINCE A FEW MONTHS AGO. SHE IS DOING WELL AND REMAINS STABLE EXCEPT INTERMITTENT BOUTS OF COUGH TREATED BY USING COUGH DROPS, AND ONLY MILD SHORTNESS OF BREATH ON EXERTION. SHE WALKS A FEW MILES EVERY DAY. AT PRESENT SHE IS USING BREO 100-25 ONLY 1 INHALATION DAILY AND ALBUTEROL JUST ONCE IN A WHILE . SHE IS NOT USING INCRUSE ELLIPTA SAYING THAT SHE DID NOT LIKE THE TASTE AND IT DRIED HER MOUTH. [facility] Medical History Minimal recurrent major depressive disorder Hospital discharge follow-up Diverticulitis Hypercalcemia History of smoking at least 1 pack per day for at least 30 years COPD (chronic obstructive pulmonary disease) Chronic constipation Nondiabetic gastroparesis GERD (gastroesophageal reflux disease) COVID-19 Dyslipidemia Mild asthma Lumbar spondylosis Surgical History History of esophagogastroduodenoscopy (EGD) Hx of colonoscopy Hyperhidrosis Family History (Updated 10/13/24 @ 11:01 by Kaela Levine MD) Father Alcoholism Mother Hypertension Diabetes High cholesterol Son Bipolar 1 disorder Anxiety Mental health disorder Social History (Reviewed 11/15/24 @ 10:20 by Sindhu Amor [facility]) Household Members: None Housing: Apartment Are you a primary patient centered care specialist to a significant other at home: No Do you presently have visiting nurse or other home services: No Unable to assess alcohol history related to: Unknown Alcohol intake: current Alcohol intake frequency: a few times a week Alcohol type: beer and other Patient Tobacco Use Status: Former Tobacco user Tobacco use type: Cigarette Cigarettes Per Day: 3 Years Smoked: 50 e-Cigarette/Vaping Use: Never Used Second Hand Smoke Exposure: No service: No Current occupational status: disabled Cognitive needs: No Hearing needs: No Vision needs: Yes Review of Systems Const All systems reviewed & are unremarkable except as noted in HPI and below Eyes Reports no additional complaints ENT Reports no additional complaints Card Denies chest pain, Denies irregular heart rhythm, Denies leg edema and Reports dyspnea on exertion Resp Reports as per HPI and Reports dyspnea on exertion GI Reports constipation and Reports heartburn (CONTROLLED WITH OMEPRAZOLE) Reports no additional complaints Musc Reports back pain (FREQUENT BACK SPASM) Skin/Breast Reports system reviewed and no additional complaints, except as documented Neuro Reports no additional complaints Psych Reports no additional complaints Physical Exam Vital Signs: Last Vital Signs Pulse 81 11/15/24 10:13 BP 130/60 11/15/24 10:13 Pulse Ox 97 11/15/24 10:13 Oxygen Delivery Method Room Air 11/15/24 10:13 BMI result Body Mass Index 26.4 Const General: comfortable (But anxious), no acute distress, alert and awake Orientation/consciousness: patient oriented x3 HEENT Head: Yes normal to inspection General nose exam: No nasal polyps present and No nasal discharge present Face and sinus: Yes sinuses nontender Mouth: oropharynx normal Throat: Yes posterior oropharynx normal Eyes General: appearance normal, both eyes and all related structures Neck Neck: Yes normal visual inspection, Yes no lymphadenopathy, Yes trachea midline and Yes no JVD Thyroid: Thyroid normal Chest Chest palpation & inspection: normal inspection of the chest, normal palpation of entire chest wall and no tenderness Resp Other: Percussion note hyper-resonant, breath sounds are distant with prolonged expiratory phase. No wheezes or rhonchi are heard. Cardio Palpation: normal PMI Rate: regular rate Rhythm: regular rhythm Heart sounds: no gallops and no murmurs Peripheral pulses: Peripheral pulses 2+ throughout GI Palpation (GI): Soft to palpation, nontender, No hepatosplenomegaly present and no masses Auscultation: normal bowel sounds Back/Spine/Pelvis Thoracic/Lumbar Spine: Thoracic/lumbar scoliosis (MODERATE ) Skin General skin exam: no rashes or lesions noted Neuro General: patient oriented x3 and no focal motor deficits Cranial nerves: Yes CN's II-XII intact bilaterally Extrem General: Yes normal to inspection, Yes no clubbing, cyanosis or edema and Yes no calf tenderness Psych Appearance: grossly normal and well kempt Speech and movement: Normal speech and movement present Assessment & Plan Assessment & Plan (1) COPD (chronic obstructive pulmonary disease): Comment: THIS PATIENT HAS MODERATELY SEVERE OBSTRUCTIVE AIRWAY DISORDER WITH PARTIAL REVERSIBILITY. C/W ASTHMA/COPD OVERLAP SYNDROME, LAST PFT IN 2020 . LOST SPIROMETRY IN NOVEMBER 2022. .REMAINS VERY STABLE. AT PRESENT HER MAIN SYMPTOM IS INTERMITTENT DRY COUGH. Code(s): J44.9 - Chronic obstructive pulmonary disease, unspecified Category: Medical Qualifiers: COPD type: unspecified COPD Qualified Code(s): J44.9 - Chronic obstructive pulmonary disease, unspecified Plan: USE BREO 100-25 1 INHALATION DAILY. NO NEED TO USE INCRUSE ELLIPTA . ALBUTEROL HFA 2 PUFFS Q 6 HOURS P.R.N.. (2) History of smoking at least 1 pack per day for at least 30 years: Comment: She has smoked about half pack of cigarettes a day for the last 30 plus years, QUIT in 2021 , but then resumed smoking a few cigarettes daily. Now has not smoked in the last 6 months Code(s): Z87.891 - Personal history of nicotine dependence Category: Social Hx Plan: Commended for not going back to smoking. Again talked to her about annual lung screening program. She is now agreeable and I have referred her for Annual LDCT . Program Orders: Orders CT lung screening Today J44.9 - Chronic obstructive pulmonary disease, unspec ified, Z87.891 - Personal history of nicotine dependence Medications: Refilled albuterol sulfate 90 mcg/actuation 2 puffs inhalation Q4-6H PRN 8.5 grams 5RF shortness of breath or wheezing 30 days Coding Level of Care Code Est Pt Level 3 (31369) Diagnoses Chronic obstructive pulmonary disease, unspecified COPD type J44.9 COPD type: unspecified COPD History of smoking at least 1 pack per day for at least 30 years Z87.891
[2024-11-15 10:13] VITALS: BP 130/60; PULSE 81; O2SAT 97; BMI 26.4
== END 2024-11-15 10:37 | disposition home or self-care (01) ==
LOC: HO.HPS 10:06
PROVIDERS: PCP Internal Medicine; Visit Provider Internal Medicine
DX: J44.9 Chronic obstructive pulmonary disease, unspecified (principal); Z87.891 Personal history of nicotine dependence
CPT/HCPCS: 99213

== ENCOUNTER → 2024-11-15 10:04 | Outpatient (BNVA) | payer OTHER, SELFPAY | PROVIDERS: PCP Internal Medicine; Visit Provider Internal Medicine | DX: J44.9 Chronic obstructive pulmonary disease, unspecified (principal); Z87.891 Personal history of nicotine dependence | CPT/HCPCS: 99212 ==

== ENCOUNTER 2024-12-09 09:30 | Outpatient (REF) | payer OTHER, SELFPAY ==
--- NOTE | ~2024-12-09 | MM_ITS ---
STUDY: DUAL ENERGY X-RAY ABSORPTIOMETRY / DXA REASON FOR EXAM: Female, 69 years old Z78.0 - Asymptomatic menopausal state TECHNIQUE: Bone Mineral Density (BMD) measurements of the lumbar spine and left hip were obtained using [facility] COMPARISON: February 27, 2022 FINDINGS: L1-L2 BMD: 1.064 g/cm2 L1-L2 T score: -0.8. This corresponds to Normal bone density. This represents a -8.0* % decrease in bone density compared with prior exam from February 27, 2022. Left femoral neck BMD: 0.828 g/cm2 Left femoral neck T score: -1.5. This corresponds to osteopenia. Left total hip BMD: 0.892 g/cm2 Left total hip T score: -0.9. This corresponds to Normal bone density. This represents a -9.0* % decrease in bone density compared with prior exam from February 27, 2022. * - Indicates a statistically significant change. FRAX score: 10 year risk of major osteoporotic fracture 13.5%, 10 year risk of hip fracture 2.4% MM/XR DEXA axial skeleton IMPRESSION: Osteopenia Reference Information: The T-score is the number of standard deviations above or below the standard which is normal for young adults at their peak bone mineral density. The World Health Organization (WHO) interprets the T-scores as follows: At or above -1 SD Normal bone density Between -1 and -2.5 SD Osteopenia At or below -2.5 SD Osteoporosis Electronically signed by: Rhoda Prieto MD 12/09/2024 11:42 AM EDT
== END 2024-12-09 09:31 | disposition home or self-care (01) ==
LOC: HO.MAMMO 09:30
PROVIDERS: PCP Internal Medicine; Visit Provider Internal Medicine
DX: Z13.820 Encounter for screening for osteoporosis (principal); Z78.0 Asymptomatic menopausal state
CPT/HCPCS: 77080

== ENCOUNTER → 2024-12-09 10:30 | Outpatient (BNV) | payer OTHER, SELFPAY | PROVIDERS: PCP Internal Medicine; Visit Provider Radiology Body Imaging | DX: E28.39 Other primary ovarian failure (principal) | CPT/HCPCS: 77080 ==